=== PATIENT | female | born 1935 | race Asian ===

== ENCOUNTER 2018-07-18 12:57 | Inpatient (IN) | payer MEDICARE ==
[2018-07-18 13:36] LABS: Hematocrit 39.4 % (30.3-42.9); Hemoglobin 12.7 gm/dl (10.1-14.3); Mean Corpuscular HGB Conc 32 % (30-34); Mean Corpuscular Volume 95 fl (79-97); Platelet Count 252 K/mm3 (140-440); Red Blood Count 4.13 M/mm3 (3.65-5.03); Red Cell Distribution Width 15.4 % (13.2-15.2)
[2018-07-18 13:49] LABS: Calcium 8.4 mg/dL (8.4-10.2)
--- NOTE | 2018-07-18 14:30 | Emergency Department Report ---
ED General Adult HPI - General Chief complaint: Psych Stated complaint: HENRY ARTEAGA Time Seen by Provider: 07/18/18 13:22 Source: patient Mode of arrival: Wheelchair Limitations: No Limitations - History of Present Illness Initial comments: Mely 83-year-old female that arrives with her daughter and perhaps sister. The daughter is stating that the patient needs to be admitted to the geriatric psychiatry unit here. I explained to her that we need to medically screen the patient and determine indications for medical stabilization and admission. After a while she seemed to understand. However she is stating that "16 doctors told her the same thing". The sister tells me that the patient has been on Lasix intermittently "once a week or once a month". The patient has a variety of medical problems that have been chronic, long- standing and perhaps deteriorating. She lives alone. She has had chronic depression. They have been multiple family members that have this year as well as her pad of 17 years. She has had chronic diarrhea. She has had recent persistent cough and or by mouth intake. She complains of generalized weakness and believe she is dehydrated. The patient denies any substantial pain. She states that her abdomen is a bit bloated. -: week(s), month(s) Consistency: other (generalized weakness) Worsens with: none Associated Symptoms: cough, other (as per HPI) - Related Data Allergies Allergy/AdvReac Type Severity Reaction Status Date / Time cefaclor [From Ceclor] Allergy Unknown Verified 07/18/18 13:05 ciprofloxacin [From Cipro] Allergy Unknown Verified 07/18/18 13:05 diphenhydramine Allergy Unknown Verified 07/18/18 13:05 [From Benadryl] iodine Allergy Unknown Verified 07/18/18 13:05 levofloxacin [From Levaquin] Allergy Unknown Verified 07/18/18 13:05 moxifloxacin [From Avelox] Allergy Unknown Verified 07/18/18 13:05 nitrofurantoin Allergy Unknown Verified 07/18/18 13:05 [From Macrodantin] Penicillins Allergy Unknown Verified 07/18/18 13:05 sulfamethoxazole Allergy Unknown Verified 07/18/18 13:05 [From Septra] tetracycline Allergy Unknown Verified 07/18/18 13:05 trimethoprim [From Septra] Allergy Unknown Verified 07/18/18 13:05 mycins Allergy Unknown Uncoded 07/18/18 13:05 ED Review of Systems ROS: Stated complaint: PYSCH EVAL Other details as noted in HPI Constitutional: weakness. denies: chills, fever Eyes: denies: eye pain, eye discharge, vision change ENT: denies: ear pain, throat pain Respiratory: cough (nonproductive). denies: shortness of breath, wheezing Cardiovascular: denies: chest pain, palpitations Endocrine: no symptoms reported Gastrointestinal: other (bloating). denies: abdominal pain, nausea, vomiting Genitourinary: denies: urgency, dysuria, discharge Musculoskeletal: denies: back pain, joint swelling, arthralgia Skin: denies: rash, lesions Neurological: denies: headache, weakness, paresthesias Psychiatric: denies: anxiety, depression Hematological/Lymphatic: denies: easy bleeding, easy bruising ED Past Medical Hx - Past Medical History Previous Medical History?: Yes Hx Hypertension: Yes Hx Renal Disease: Yes Hx of Cancer: Yes Hx Psychiatric Treatment: Yes (anxiety, depression) Additional medical history: hypothyroid, high cholesterol, AFIB, IBS - Surgical History Hx Pacemaker: Yes Hx Appendectomy: Yes Additional Surgical History: cataracts removed, abd surgery, hysterectomy, bladder sling, back, foot - Social History Smoking Status: Never Smoker Substance Use Type: None ED Physical Exam - General Limitations: Altered Mental Status General appearance: alert, in no apparent distress, lethargic (mildly), other (appears dehydrated) - Head Head exam: Present: atraumatic, normocephalic - Eye Eye exam: Present: normal appearance. Absent: scleral icterus - ENT ENT exam: Present: mucous membranes moist - Neck Neck exam: Present: normal inspection. Absent: tenderness, meningismus - Respiratory Respiratory exam: Present: normal lung sounds bilaterally. Absent: respiratory distress - Cardiovascular Cardiovascular Exam: Present: regular rate, normal rhythm. Absent: systolic murmur, diastolic murmur, rubs, gallop - GI/Abdominal GI/Abdominal exam: Present: soft, normal bowel sounds. Absent: distended, tenderness, guarding, rebound, rigid - Extremities Exam Extremities exam: Present: normal inspection. Absent: calf tenderness - Back Exam Back exam: Present: normal inspection - Neurological Exam Neurological exam: Present: alert, oriented X3, CN II-XII intact. Absent: motor sensory deficit - Psychiatric Psychiatric exam: Present: normal mood, flat affect - Skin Skin exam: Present: warm, dry, intact, normal color. Absent: rash ED Course Vital Signs 07/18/18 13:05 Temperature 97.4 F L Pulse Rate 75 Respiratory 18 Rate Blood Pressure 115/73 O2 Sat by Pulse 97 Oximetry - Reevaluation(s) Reevaluation #1: Patient was found to be fairly severely hyponatremic. This is being addressed. I do not believe she needs hypertonic saline at this point. We will treat her with normal saline. She is volume depleted. She will be admitted by Dr. Le of the hospitalist service further care and evaluation. Chest x-ray still pending. 07/18/18 14:35 Reevaluation #2: Patient is being seen by Dr. Hanley now. She has multiple antibiotic allergies. I will leave it up to Dr. Le how or if he wants to treat the patient's pyuria. Urine culture is pending. 07/18/18 15:25 ED Medical Decision Making - Lab Data Result diagrams: 07/18/18 13:14 07/18/18 13:14 Laboratory Results - last 24 hr 07/18/18 07/18/18 07/18/18 13:14 13:14 13:14 WBC RBC Hgb Hct MCV MCH MCHC RDW Plt Count Sodium 120 L Potassium 4.4 Chloride 86.2 L Carbon Dioxide 19 L Anion Gap 19 BUN 22 H Creatinine 1.4 H Estimated GFR 36 BUN/Creatinine Ratio 16 Glucose 116 H Calcium 8.4 Salicylates < 0.3 L Acetaminophen 5.4 L Plasma/Serum Alcohol 07/18/18 07/18/18 13:14 13:14 WBC 5.9 RBC 4.13 Hgb 12.7 Hct 39.4 MCV 95 MCH 31 MCHC 32 RDW 15.4 H Plt Count 252 Sodium Potassium Chloride Carbon Dioxide Anion Gap BUN Creatinine Estimated GFR BUN/Creatinine Ratio Glucose Calcium Salicylates Acetaminophen Plasma/Serum Alcohol < 0.01 - Radiology Data Radiology results: report reviewed (pacemaker no acute process) Critical care attestation.: If time is entered above; I have spent that time in minutes in the direct care of this critically ill patient, excluding procedure time. ED Disposition Clinical Impression: Hyponatremia, Volume depletion, Generalized weakness UTI (urinary tract infection) Qualifiers: Urinary tract infection type: site unspecified Hematuria presence: without hematuria Qualified Code(s): N39.0 - Urinary tract infection, site not specified Major depression Qualifiers: Major depression recurrence: recurrent Active/Remission status: currently active Major depression episode severity: moderate Qualified Code(s): F33.1 - Major depressive disorder, recurrent, moderate Cardiomyopathy Qualifiers: Cardiomyopathy type: unspecified Qualified Code(s): I42.9 - Cardiomyopathy, unspecified Disposition: 09 OP ADMIT IP TO THIS HOSP Is pt being admited?: Yes Does the pt Need Aspirin: Yes Condition: Stable Time of Disposition: 15:29
[2018-07-18] MEDS ORDERED: NACL 0.9% 1000 ML 1,000 ML IV ONE ×2 (14:31→15:12)
[2018-07-18 14:47] LABS: Bacteria,Urine 1+ /HPF (Negative); Bilirubin,Urine NEG (Negative); Blood,Urine SM (Negative); Color,Urine Amber (Yellow); Hyaline Casts,Urine 1 /LPF; Mucus,Urine FEW /HPF
[2018-07-18 14:55] LABS: Basophils % (Manual) 0 % (0.0-1.8); Eosinophils % (Manual) 0 % (0.0-4.3); Total Cells Counted 100
[2018-07-18 14:56] LABS: Anisocytosis 1+; Hypochromasia Few; Ovalocytes Few; Platelet Estimate Consistent w Auto; Poikilocytosis 1+; Target Cells Few
[2018-07-18 14:57] LABS: Benzodiazepines Screen,Urine PRESUMPTIVE NEGATIVE; Cannabinoid Screen,Urine PRESUMPTIVE NEGATIVE; Cocaine Screen,Urine PRESUMPTIVE NEGATIVE; Methadone Screen,Urine PRESUMPTIVE NEGATIVE; Opiate Screen,Urine PRESUMPTIVE NEGATIVE
[2018-07-18 15:09] LABS: Amphetamine Screen,Urine PRESUMPTIVE NEGATIVE
--- NOTE | 2018-07-18 15:11 | Cat Scan Report ---
CT HEAD WITHOUT CONTRAST: HISTORY: Altered mental status, hyponatremia. TECHNIQUE: Sequential CT images without contrast. FINDINGS: Images obtained show bilateral prominence of the sulci and ventricles. There are no abnormal intra- or extra-axial blood or fluid collections. There are no focal masses or evidence of mass effect. The pritchard white matter differentiation appears within normal limits. Regions of periventricular decreased attenuation are consistent with microangiopathic ischemic disease. The posterior fossa structures including the fourth ventricle, cerebellum, and brainstem appear normal. A 1 cm polyp is noted in the medial left maxillary sinus. The remaining sinuses and mastoid air cells are adequately aerated. IMPRESSION: Evidence of atrophy and microangiopathic ischemic disease. Small left maxillary sinus polyp. No acute intracranial process noted.
--- NOTE | 2018-07-18 15:11 | XRay Report ---
Portable chest: Hypertension. No prior exam for comparison. The patient is markedly rotated to the right. There is a bipolar pacemaker. Evaluation of cardiac size is limited by rotation but may be slightly enlarged. There is no vascular congestion. The lungs appear generally clear. There are surgical carlos on the left possibly within the left breast. Impression: Limited study due to positioning. No acute findings suspected.
[2018-07-18] MEDS ORDERED: BABY ASPIRIN PO ONE (15:29)
[2018-07-18 15:42] LABS: Albumin 3.5 g/dL (3.9-5); Bilirubin,Direct 0.6 mg/dL (0-0.2)
[2018-07-19] MEDS ORDERED: DILAUDID IV PRN (00:20)
[2018-07-19] MEDS ORDERED: ZOFRAN IV PRN (00:20)
[2018-07-19] MEDS ORDERED: SODIUM CHLORIDE FLUSH SYRINGE 10 ML IV PRN (00:20)
[2018-07-19] MEDS ORDERED: TYLENOL PO PRN (00:20)
[2018-07-19] MEDS ORDERED: REGLAN IV PRN (00:20)
--- NOTE | 2018-07-19 00:20 | History and Physical Report ---
History of Present Illness Date of examination: 07/18/18 Date of admission: 07/18/18 15:41 Chief complaint: Severe weakness and debility for 1 month History of present illness: 83-year-old female who lives alone unable to take care of herself last 1 month. Patient has to be helped for her ADLs by her daughter who visits her every day. Patient wanted to be admitted to geriatric psychiatry unit here. Patient is not cleared medically and her sodium was low at 120-hence admission to medical floor for stabilization. No fever or chills. Generalized weakness and debility. Patient also has chronic depression. Patient recently lost her dog and nephew. Denies suicidal ideation. Not sleeping or eating. Past Medical History Previous Medical History?: Yes Hx Hypertension: Yes Hx Renal Disease: Yes Hx of Cancer: Yes Hx Psychiatric Treatment: Yes (anxiety, depression) Additional medical history: hypothyroid, high cholesterol, AFIB, IBS Surgical History Hx Pacemaker: Yes Hx Appendectomy: Yes Additional Surgical History: cataracts removed, abd surgery, hysterectomy, bladder sling, back, foot Social History Smoking Status: Never Smoker Substance Use Type: None Review of Systems ROS: Stated complaint: PYSCH EVAL Other details as noted in HPI Constitutional: weakness. denies: chills, fever Eyes: denies: eye pain, eye discharge, vision change ENT: denies: ear pain, throat pain Respiratory: cough (nonproductive). denies: shortness of breath, wheezing Cardiovascular: denies: chest pain, palpitations Endocrine: no symptoms reported Gastrointestinal: other (bloating). denies: abdominal pain, nausea, vomiting Genitourinary: denies: urgency, dysuria, discharge Musculoskeletal: denies: back pain, joint swelling, arthralgia Skin: denies: rash, lesions Neurological: denies: headache, weakness, paresthesias Psychiatric: denies: anxiety, depression Hematological/Lymphatic: denies: easy bleeding, easy bruising Medications and Allergies Allergies Allergy/AdvReac Type Severity Reaction Status Date / Time cefaclor [From Ceclor] Allergy Unknown Verified 07/18/18 13:05 ciprofloxacin [From Cipro] Allergy Unknown Verified 07/18/18 13:05 diphenhydramine Allergy Unknown Verified 07/18/18 13:05 [From Benadryl] iodine Allergy Unknown Verified 07/18/18 13:05 levofloxacin [From Levaquin] Allergy Unknown Verified 07/18/18 13:05 moxifloxacin [From Avelox] Allergy Unknown Verified 07/18/18 13:05 nitrofurantoin Allergy Unknown Verified 07/18/18 13:05 [From Macrodantin] Penicillins Allergy Unknown Verified 07/18/18 13:05 sulfamethoxazole Allergy Unknown Verified 07/18/18 13:05 [From Septra] tetracycline Allergy Unknown Verified 07/18/18 13:05 trimethoprim [From Septra] Allergy Unknown Verified 07/18/18 13:05 mycins Allergy Unknown Uncoded 07/18/18 13:05 Home Medications Medication Instructions Recorded Confirmed Last Taken Type Benzonatate [Tessalon Perle] 100 mg PO PRN 07/18/18 07/18/18 Unknown History Diltiazem HCl [Diltiazem 24Hr ER] 240 mg PO QAM 07/18/18 07/18/18 Unknown History Levothyroxine [Synthroid] 125 mcg PO QAM 07/18/18 07/18/18 Unknown History Loperamide 2 mg PO DAILY 07/18/18 07/18/18 Unknown History Metoprolol SUCCINATE ER TAB 25 mg PO QPCHS 07/18/18 07/18/18 Unknown History PARoxetine [Paxil] 20 mg PO DAILY 07/18/18 07/18/18 Unknown History Rivaroxaban [Xarelto] 15 mg PO DAILY 07/18/18 07/18/18 Unknown History Exam - Constitutional Vitals: Temp Pulse Resp BP Pulse Ox 97.4 F L 54 L 18 115/70 96 07/18/18 21:02 07/18/18 21:02 07/18/18 21:02 07/18/18 21:02 07/18/18 21:02 General appearance: Present: mild distress, well-nourished - EENT Eyes: Present: PERRL ENT: hearing intact, clear oral mucosa - Neck Neck: Present: supple, normal ROM - Respiratory Respiratory effort: normal Respiratory: bilateral: CTA - Cardiovascular Heart rate: 78 Rhythm: regular Heart Sounds: Present: S1 & S2. Absent: rub, click - Extremities Extremities: no ischemia, pulses intact, pulses symmetrical, No edema Peripheral Pulses: within normal limits - Abdominal General gastrointestinal: Present: soft, non-tender, non-distended, normal bowel sounds Female genitourinary: Present: normal - Rectal Rectal Exam: deferred - Integumentary Integumentary: Present: clear, warm, dry - Musculoskeletal Musculoskeletal: generalized weakness - Psychiatric Psychiatric: appropriate mood/affect, intact judgment & insight, depressed - Neurologic Neurologic: CNII-XII intact, moves all extremities - Allied Health Allied health notes reviewed: nursing, case management Results - Labs CBC & Chem 7: 07/18/18 13:14 07/18/18 13:14 Labs: Laboratory Last Values WBC 5.9 K/mm3 (4.5-11.0) 07/18/18 13:14 RBC 4.13 M/mm3 (3.65-5.03) 07/18/18 13:14 Hgb 12.7 gm/dl (10.1-14.3) 07/18/18 13:14 Hct 39.4 % (30.3-42.9) 07/18/18 13:14 MCV 95 fl (79-97) 07/18/18 13:14 MCH 31 pg (28-32) 07/18/18 13:14 MCHC 32 % (30-34) 07/18/18 13:14 RDW 15.4 % (13.2-15.2) H 07/18/18 13:14 Plt Count 252 K/mm3 (140-440) 07/18/18 13:14 Add Manual Diff Complete 07/18/18 13:14 Total Counted 100 07/18/18 13:14 Seg Neuts % (Manual) 83.0 % (40.0-70.0) H 07/18/18 13:14 Band Neutrophils % 0 % 07/18/18 13:14 Lymphocytes % (Manual) 9.0 % (13.4-35.0) L 07/18/18 13:14 Reactive Lymphs % (Man) 0 % 07/18/18 13:14 Monocytes % (Manual) 8.0 % (0.0-7.3) H 07/18/18 13:14 Eosinophils % (Manual) 0 % (0.0-4.3) 07/18/18 13:14 Basophils % (Manual) 0 % (0.0-1.8) 07/18/18 13:14 Metamyelocytes % 0 % 07/18/18 13:14 Myelocytes % 0 % 07/18/18 13:14 Promyelocytes % 0 % 07/18/18 13:14 Blast Cells % 0 % 07/18/18 13:14 Nucleated RBC % Not Reportable 07/18/18 13:14 Seg Neutrophils # Man 4.9 K/mm3 (1.8-7.7) 07/18/18 13:14 Band Neutrophils # 0.0 K/mm3 07/18/18 13:14 Lymphocytes # (Manual) 0.5 K/mm3 (1.2-5.4) L 07/18/18 13:14 Abs React Lymphs (Man) 0.0 K/mm3 07/18/18 13:14 Monocytes # (Manual) 0.5 K/mm3 (0.0-0.8) 07/18/18 13:14 Eosinophils # (Manual) 0.0 K/mm3 (0.0-0.4) 07/18/18 13:14 Basophils # (Manual) 0.0 K/mm3 (0.0-0.1) 07/18/18 13:14 Metamyelocytes # 0.0 K/mm3 07/18/18 13:14 Myelocytes # 0.0 K/mm3 07/18/18 13:14 Promyelocytes # 0.0 K/mm3 07/18/18 13:14 Blast Cells # 0.0 K/mm3 07/18/18 13:14 WBC Morphology Not Reportable 07/18/18 13:14 Hypersegmented Neuts Not Reportable 07/18/18 13:14 Hyposegmented Neuts Not Reportable 07/18/18 13:14 Hypogranular Neuts Not Reportable 07/18/18 13:14 Smudge Cells Not Reportable 07/18/18 13:14 Toxic Granulation Not Reportable 07/18/18 13:14 Toxic Vacuolation Not Reportable 07/18/18 13:14 Dohle Bodies Not Reportable 07/18/18 13:14 Pelger-Huet Anomaly Not Reportable 07/18/18 13:14 Barbi Rods Not Reportable 07/18/18 13:14 Platelet Estimate Consistent w auto 07/18/18 13:14 Clumped Platelets Not Reportable 07/18/18 13:14 Plt Clumps, EDTA Not Reportable 07/18/18 13:14 Large Platelets Not Reportable 07/18/18 13:14 Giant Platelets Not Reportable 07/18/18 13:14 Platelet Satelliting Not Reportable 07/18/18 13:14 Plt Morphology Comment Not Reportable 07/18/18 13:14 RBC Morphology Not Reportable 07/18/18 13:14 Dimorphic RBCs Not Reportable 07/18/18 13:14 Polychromasia Not Reportable 07/18/18 13:14 Hypochromasia Few 07/18/18 13:14 Poikilocytosis 1+ 07/18/18 13:14 Anisocytosis 1+ 07/18/18 13:14 Microcytosis Few 07/18/18 13:14 Macrocytosis Not Reportable 07/18/18 13:14 Spherocytes Not Reportable 07/18/18 13:14 Pappenheimer Bodies Not Reportable 07/18/18 13:14 Sickle Cells Not Reportable 07/18/18 13:14 Target Cells Few 07/18/18 13:14 Tear Drop Cells Not Reportable 07/18/18 13:14 Ovalocytes Few 07/18/18 13:14 Helmet Cells Not Reportable 07/18/18 13:14 [place] Bodies Not Reportable 07/18/18 13:14 [place] Rings Not Reportable 07/18/18 13:14 [place]ora Cells Not Reportable 07/18/18 13:14 Bite Cells Not Reportable 07/18/18 13:14 Crenated Cell Not Reportable 07/18/18 13:14 Elliptocytes Not Reportable 07/18/18 13:14 Acanthocytes (Spur) Not Reportable 07/18/18 13:14 Rouleaux Not Reportable 07/18/18 13:14 Hemoglobin C Crystals Not Reportable 07/18/18 13:14 Schistocytes Not Reportable 07/18/18 13:14 Malaria parasites Not Reportable 07/18/18 13:14 Chao Bodies Not Reportable 07/18/18 13:14 Hem Pathologist Commnt No 07/18/18 13:14 Sodium 120 mmol/L (137-145) L 07/18/18 13:14 Potassium 4.4 mmol/L (3.6-5.0) 07/18/18 13:14 Chloride 86.2 mmol/L (98-107) L 07/18/18 13:14 Carbon Dioxide 19 mmol/L (22-30) L 07/18/18 13:14 Anion Gap 19 mmol/L 07/18/18 13:14 BUN 22 mg/dL (7-17) H 07/18/18 13:14 Creatinine 1.4 mg/dL (0.7-1.2) H 07/18/18 13:14 Estimated GFR 36 ml/min 07/18/18 13:14 BUN/Creatinine Ratio 16 % 07/18/18 13:14 Glucose 116 mg/dL (65-100) H 07/18/18 13:14 Calcium 8.4 mg/dL (8.4-10.2) 07/18/18 13:14 Total Bilirubin 1.10 mg/dL (0.1-1.2) 07/18/18 13:14 Direct Bilirubin 0.6 mg/dL (0-0.2) H 07/18/18 13:14 Indirect Bilirubin 0.5 mg/dL 07/18/18 13:14 AST 69 units/L (5-40) H 07/18/18 13:14 ALT 65 units/L (7-56) H 07/18/18 13:14 Alkaline Phosphatase 89 units/L (35-129) 07/18/18 13:14 NT-Pro-B Natriuret Pep 18397 pg/mL (0-900) H 07/18/18 13:14 Total Protein 5.5 g/dL (6.3-8.2) L 07/18/18 13:14 Albumin 3.5 g/dL (3.9-5) L 07/18/18 13:14 Albumin/Globulin Ratio 1.8 % 07/18/18 13:14 Urine Color [place] (Yellow) 07/18/18 14:30 Urine Turbidity Clear (Clear) 07/18/18 14:30 Urine pH 5.0 (5.0-7.0) 07/18/18 14:30 Ur Specific [place] 1.017 (1.003-1.030) 07/18/18 14:30 Urine Protein 30 mg/dl mg/dL (Negative) 07/18/18 14:30 Urine Glucose (UA) Neg mg/dL (Negative) 07/18/18 14:30 Urine Ketones Tr mg/dL (Negative) 07/18/18 14:30 Urine Blood Sm (Negative) 07/18/18 14:30 Urine Nitrite Neg (Negative) 07/18/18 14:30 Urine Bilirubin Neg (Negative) 07/18/18 14:30 Urine Urobilinogen 4.0 mg/dL (<2.0) 07/18/18 14:30 Ur Leukocyte Esterase Tr (Negative) 07/18/18 14:30 Urine WBC (Auto) 30.0 /HPF (0.0-6.0) H 07/18/18 14:30 Urine RBC (Auto) 3.0 /HPF (0.0-6.0) 07/18/18 14:30 U Epithel Cells (Auto) < 1.0 /HPF (0-13.0) 07/18/18 14:30 Urine Bacteria (Auto) 1+ /HPF (Negative) 07/18/18 14:30 Hyaline Casts 1 /LPF 07/18/18 14:30 Urine Mucus Few /HPF 07/18/18 14:30 Salicylates < 0.3 mg/dL (2.8-20.0) L 07/18/18 13:14 Urine Opiates Screen Presumptive negative 07/18/18 14:30 Urine Methadone Screen Presumptive negative 07/18/18 14:30 Acetaminophen 5.4 ug/mL (10.0-30.0) L 07/18/18 13:14 Ur Barbiturates Screen Presumptive negative 07/18/18 14:30 Ur Phencyclidine Scrn Presumptive negative 07/18/18 14:30 Ur Amphetamines Screen Presumptive negative 07/18/18 14:30 U Benzodiazepines Scrn Presumptive negative 07/18/18 14:30 Urine Cocaine Screen Presumptive negative 07/18/18 14:30 U Marijuana (THC) Screen Presumptive negative 07/18/18 14:30 Drugs of Abuse Note Disclamer 07/18/18 14:30 Plasma/Serum Alcohol < 0.01 % (0-0.07) 07/18/18 13:14 - Imaging and Cardiology Imaging and Cardiology: Chest x-ray No prior exam for comparison. The patient is markedly rotated to the right. There is a bipolar pacemaker. Evaluation of cardiac size is limited by rotation but may be slightly enlarged. There is no vascular congestion. The lungs appear generally clear. There are surgical carlos on the left possibly within the left breast. Impression: Limited study due to positioning. No acute findings suspected. CT head IMPRESSION: Evidence of atrophy and microangiopathic ischemic disease. Small left maxillary sinus polyp. No acute intracranial process noted. Assessment and Plan Advance Directives: Yes (full code) VTE prophylaxis?: Chemical Plan of care discussed with patient/family: Yes - Patient Problems (1) Hyponatremia Current Visit: Yes Status: Acute Plan to address problem: Normal saline at 100 mL per hour for now Check urine osmolarity and on serum osmolality. Patient not on any SSRIs which can cause hyponatremia Not on any diuretics (2) Coronary artery disease Current Visit: Yes Status: Chronic Qualifiers: Coronary Disease-Associated Artery/Lesion type: [place] artery [place] vs. transplanted heart: [place] heart Associated angina: without angina Qualified Code(s): I25.10 - Atherosclerotic heart disease of [place] coronary artery without angina pectoris Plan to address problem: Continue Plavix (3) Hypertension Current Visit: Yes Status: Chronic Qualifiers: Hypertension type: essential hypertension Qualified Code(s): I10 - Essential (primary) hypertension Plan to address problem: Continue antihypertensives (4) Hyperlipidemia Current Visit: Yes Status: Chronic Qualifiers: Hyperlipidemia type: mixed hyperlipidemia Qualified Code(s): E78.2 - Mixed hyperlipidemia Plan to address problem: Continue statins (5) Physical debility Current Visit: Yes Status: Acute Plan to address problem: Physical therapy ordered for evaluation and treatment (6) Depression Current Visit: Yes Status: Chronic Qualifiers: Depression Type: unspecified Qualified Code(s): F32.9 - Major depressive disorder, single episode, unspecified Plan to address problem: Patient once medically cleared to be transferred to geriatric psych unit (7) DL (acute kidney injury) Current Visit: Yes Status: Acute Plan to address problem: IV fluids (8) UTI (urinary tract infection) Current Visit: Yes Status: Acute Qualifiers: Urinary tract infection type: acute cystitis Hematuria presence: without hematuria Qualified Code(s): N30.00 - Acute cystitis without hematuria Plan to address problem: On IV Rocephin (9) Elevated brain natriuretic peptide (BNP) level Current Visit: Yes Status: Chronic Plan to address problem: Possible CHF Echocardiogram ordered IV fluids to be discontinued tomorrow morning (10) DVT prophylaxis Current Visit: Yes Status: Acute Plan to address problem: Lovenox 30 mg subcutaneous daily
[2018-07-19] MEDS ORDERED: NACL 0.9% 1000 ML 1,000 ML IV SCH (01:00)
[2018-07-19 05:27] LABS: Calcium 8.3 mg/dL (8.4-10.2)
[2018-07-19] MEDS: SODIUM CHLORIDE FLUSH SYRINGE 10 ML IV SCH ×2 (09:35→21:13)
[2018-07-19] MEDS: PEPCID PO SCH (09:35)
[2018-07-19] MEDS ORDERED: LEVAQUIN 500MG/100ML 500 MG/100 ML BAG IV SCH (10:00)
[2018-07-19] MEDS ORDERED: ROCEPHIN/NS 2 GM/100 ML 2 GM/100 ML BAG IV SCH (10:00)
--- NOTE | 2018-07-19 14:11 | Consultation ---
History of Present Illness - Reason for Consult Consult date: 07/19/18 acute renal failure, hyponatremia - History of Present Illness Very pleasant 83-year-old female with past medical history of hypertension, hypothyroidism, atrial fibrillation, IBS, and significant depression who presented to the emergency room department secondary to worsening weakness, fatigue, and lack of ability to take care of herself. She states that her depression has been getting worse and she wanted to seek medical attention. Per primary team's note it seems that patient was pending admission into the geriatric psychiatry unit. However she needs to be medically optimized prior to transfer. Her serum sodium levels are significantly low and for this hyponatremia and for the acute kidney injury nephrology is being consulted at this time. To note her BNP is significantly elevated and she did have a 2-D echocardiogram. Results of the echocardiogram are notable for decreased ejection fraction and moderate to severe dilatation of the left atrium and left ventricle. No evidence of LVH noted. Ejection fraction 15-20%. Chest x-ray was limited based on patient body habitus and rotation but at least it did not show any acute evidence of pulmonary edema. Patient however has stated that sin ce the last 2-3 months she has noticed worsening dyspnea on exertion and intermittent lower extremity edema. She states that she has been on the low dose of Lasix intermittently as needed for the aforementioned lower extremity edema. Overall appetite seems to be suboptimal at this time and patient states that she just does not have an appetite. She has been on normal saline at 100 mL an hour. However upon my examination this afternoon it seems that the normal saline has been stopped. Past History Past Medical History: hypertension, hyperlipidemia, hypothyroidism, other (depression) Past Surgical History: appendectomy, cataract removal, Other (pacemaker placement ) Social history: no significant social history Family history: no significant family history Medications and Allergies Allergies Allergy/AdvReac Type Severity Reaction Status Date / Time cefaclor [From Ceclor] Allergy Unknown Verified 07/18/18 13:05 ciprofloxacin [From Cipro] Allergy Unknown Verified 07/18/18 13:05 diphenhydramine Allergy Unknown Verified 07/18/18 13:05 [From Benadryl] iodine Allergy Unknown Verified 07/18/18 13:05 levofloxacin [From Levaquin] Allergy Unknown Verified 07/18/18 13:05 moxifloxacin [From Avelox] Allergy Unknown Verified 07/18/18 13:05 nitrofurantoin Allergy Unknown Verified 07/18/18 13:05 [From Macrodantin] Penicillins Allergy Unknown Verified 07/18/18 13:05 sulfamethoxazole Allergy Unknown Verified 07/18/18 13:05 [From Septra] tetracycline Allergy Unknown Verified 07/18/18 13:05 trimethoprim [From Septra] Allergy Unknown Verified 07/18/18 13:05 mycins Allergy Unknown Uncoded 07/18/18 13:05 Home Medications Medication Instructions Recorded Confirmed Last Taken Type Benzonatate [Tessalon Perle] 100 mg PO PRN 07/18/18 07/18/18 Unknown History Diltiazem HCl [Diltiazem 24Hr ER] 240 mg PO QAM 07/18/18 07/18/18 Unknown Histor y Levothyroxine [Synthroid] 125 mcg PO QAM 07/18/18 07/18/18 Unknown History Loperamide 2 mg PO DAILY 07/18/18 07/18/18 Unknown History Metoprolol SUCCINATE ER TAB 25 mg PO QPCHS 07/18/18 07/18/18 Unknown History PARoxetine [Paxil] 20 mg PO DAILY 07/18/18 07/18/18 Unknown History Rivaroxaban [Xarelto] 15 mg PO DAILY 07/18/18 07/18/18 Unknown History Active Meds: Active Medications Acetaminophen (Tylenol) 650 mg PO Q4H PRN PRN Reason: Pain MILD(1-3)/Fever >100.5/BEASLEY Famotidine (Pepcid) 20 mg [facility] [place] Last Admin: 07/19/18 09:35 Dose: 20 mg Documented by: Hydromorphone HCl (Dilaudid) 0.25 mg IV Q3H PRN PRN Reason: Pain, Moderate (4-6) Sodium Chloride (Nacl 0.9% 1000 Ml) 1,000 mls @ 100 mls/hr IV DIRECT [facility] Stop: 07/20/18 11:00 Last Admin: 07/19/18 06:44 Dose: 100 mls/hr Documented by: Levothyroxine Sodium (Synthroid) 125 mcg PO DAILY@0600 [facility] Metoclopramide HCl (Reglan) 5 mg IV Q6H PRN PRN Reason: Nausea And Vomiting Ondansetron HCl (Zofran) 4 mg IV Q8H PRN PRN Reason: Nausea And Vomiting Rivaroxaban (Xarelto) 15 mg PO DAILY KIAN; Protocol Sodium Chloride (Sodium Chloride Flush Syringe 10 Ml) 10 ml IV BID [facility] Last Admin: 07/19/18 09:35 Dose: 10 ml Documented by: Sodium Chloride (Sodium Chloride Flush Syringe 10 Ml) 10 ml IV PRN PRN PRN Reason: LINE FLUSH Review of Systems All systems: negative Constitutional: fatigue, weakness, poor appetite Respiratory: shortness of breath, dyspnea on exertion Exam - Vital Signs Vital signs: Vital Signs Temp Pulse Resp BP Pulse Ox 97.4 F L 75 18 115/73 97 07/18/18 13:05 07/18/18 13:05 07/18/18 13:05 07/18/18 13:05 07/18/18 13:05 - General Appearance General appearance: well-developed, well-nourished, appears stated age, chronically ill, frail EENT: ATNC, PERRL Neck: Present: neck supple, trachea midline Respiratory: Clear to Ascultation, Normal Exam Heart: regular, S1S2 Gastrointestinal: Present: normal, normoactive bowel sounds Integumentary: no rash, warm and dry Neurologic: no focal deficit, no asterixis, alert and oriented x3 Musculoskeletal: Present: other (no significant edema) Psychiatric: mood/affect appropriate, cooperative Results - Lab Results 07/18/18 13:14 07/19/18 04:50 Most recent lab results Calcium 8.3 mg/dL (8.4-10.2) L 07/19/18 04:50 - Image Kidney/bladder ultrasound: pending Assessment and Plan - Patient Problems (1) Hyponatremia Current Visit: Yes Status: Acute Plan to address problem: Based on echocardiogram, symptomatology, and significantly elevated BNP levels I'm concerned that she may be slightly hypervolemic in regards to overall volume status. This may be the reason for her hyponatremia. To this end I will recommend discontinuing IV fluids and to give a dose of Lasix this evening to see response. We'll also obtain urine electrolytes to include urine sodium, urine chloride, urine potassium. She should also obtain urine and serum osmolality for further evaluation of her hyponatremic state. (2) Acute systolic (congestive) heart failure Current Visit: Yes Status: Acute Plan to address problem: In the setting of elevated BNP and markedly abnormal echocardiogram, I do agree with discontinuing continuous IV fluids at this time to prevent pulmonary edema and fluid overload state. I would favor to give 1 dose of Lasix 40 mg IV 1 tonight and follow-up her serum sodium and basic metabolic panel tomorrow. Further recommendations per cardiology. (3) Acute and chronic respiratory failure with hypoxia Current Visit: Yes Status: Acute Plan to address problem: Overall respiratory status is stable on 2 L of O2 via nasal cannula. Chest x- ray noted without any acute abnormalities though chest x-ray itself was fairly limited in its imaging secondary to patient rotation and habitus. We'll continue to monitor closely. Based on her echocardiogram findings and is likely best not to have this patient on continuous IV fluids so as to prevent any fluid overload state or pulmonary edema. (4) DL (acute kidney injury) Current Visit: Yes Status: Acute Plan to address problem: Likely multifactorial secondary to prerenal injury in the setting of decreased oral intake as well as possible acute CHF exacerbation given the significant gustavo vation of BNP, symptomatology, and acutely abnormal echocardiogram. Agree with discontinuing standing IV fluids at this time. We need to encourage adequate by mouth intake and especially adequate protein intake to help increase serum sodium levels. We'll give 1 dose of Lasix to see a response as well as response of her serum sodium with morning BMP tomorrow. (5) Generalized weakness Current Visit: Yes Status: Acute Plan to address problem: Further management per primary team. She may benefit from physical therapy evaluation. (6) Major depression Current Visit: Yes Status: Acute Qualifiers: Major depression recurrence: recurrent Active/Remission status: currently active Major depression episode severity: moderate Qualified Code(s): F33.1 - Major depressive disorder, recurrent, moderate Plan to address problem: Further recommendations per psychiatry.
[2018-07-19] MEDS ORDERED: LASIX IV ONE (14:23)
--- NOTE | 2018-07-19 16:08 | Progress Note ---
Assessment and Plan Assessment and plan: 83-year-old woman with past medical history of hypothyroidism. The patient has been dealing with grief after the of a family member. The patient presents with worsening depression. She initially came to the ER hoping to be placed in geriatric psychiatric unit. However she was found to be severely hypoglycemic. Hospital course/plan Sodium is extremely low, nephrology consult. -TSH is extremely elevated and T4 is low. Has been restarted on Synthroid. Highly doubt that she is compliant with that at home -The patient takes xarelto, the indication is unclear. We'll talk to family to find out the indication -Continue antibiotics for UTI, follow-up urine culture -Creatinine improving on IV fluids - consult Diagnosis Severe hyponatremia Hypothyroidism symptomatic UTI Acute kidney injury due to vasomotor nephropathy Depression Hypercoagulable state? History Interval history: Review of systems Constitutional: No fevers, no malaise, no joint pains CVS: No chest pain, no orthopnea, no dyspnea on exertion, no pedal edema GI: No abdominal pain, no diarrhea, no vomiting, no constipation Respiratory: No shortness of breath, no wheezing, no coughing Hospitalist Physical - Physical exam Narrative exam: General.: appears sad HEENT: Moist mucous membranes, extraocular muscles intact, no lymphadenopathy Neck: supple Cardiac: S1-S2 heard Lungs: clear to auscultation bilaterally Abdomen: soft , nontender, nondistended, bowel sounds positive Extremities: no edema clubbing or cyanosis Skin: no rash or lesions Neurologic: no gross focal deficits Psych: very depressed moved - Constitutional Vitals: Temp Pulse Resp BP Pulse Ox 97.8 F 76 20 109/65 90 07/19/18 13:10 07/19/18 13:10 07/19/18 13:10 07/19/18 13:10 07/19/18 13:10 General appearance: Present: mild distress, well-nourished Results - Labs CBC & Chem 7: 07/18/18 13:14 07/19/18 04:50 Labs: Laboratory Last Values WBC 5.9 K/mm3 (4.5-11.0) 07/18/18 13:14 RBC 4.13 M/mm3 (3.65-5.03) 07/18/18 13:14 Hgb 12.7 gm/dl (10.1-14.3) 07/18/18 13:14 Hct 39.4 % (30.3-42.9) 07/18/18 13:14 MCV 95 fl (79-97) 07/18/18 13:14 MCH 31 pg (28-32) 07/18/18 13:14 MCHC 32 % (30-34) 07/18/18 13:14 RDW 15.4 % (13.2-15.2) H 07/18/18 13:14 Plt Count 252 K/mm3 (140-440) 07/18/18 13:14 Add Manual Diff Complete 07/18/18 13:14 Total Counted 100 07/18/18 13:14 Seg Neuts % (Manual) 83.0 % (40.0-70.0) H 07/18/18 13:14 Band Neutrophils % 0 % 07/18/18 13:14 Lymphocytes % (Manual) 9.0 % (13.4-35.0) L 07/18/18 13:14 Reactive Lymphs % (Man) 0 % 07/18/18 13:14 Monocytes % (Manual) 8.0 % (0.0-7.3) H 07/18/18 13:14 Eosinophils % (Manual) 0 % (0.0-4.3) 07/18/18 13:14 Basophils % (Manual) 0 % (0.0-1.8) 07/18/18 13:14 Metamyelocytes % 0 % 07/18/18 13:14 Myelocytes % 0 % 07/18/18 13:14 Promyelocytes % 0 % 07/18/18 13:14 Blast Cells % 0 % 07/18/18 13:14 Nucleated RBC % Not Reportable 07/18/18 13:14 Seg Neutrophils # Man 4.9 K/mm3 (1.8-7.7) 07/18/18 13:14 Band Neutrophils # 0.0 K/mm3 07/18/18 13:14 Lymphocytes # (Manual) 0.5 K/mm3 (1.2-5.4) L 07/18/18 13:14 Abs React Lymphs (Man) 0.0 K/mm3 07/18/18 13:14 Monocytes # (Manual) 0.5 K/mm3 (0.0-0.8) 07/18/18 13:14 Eosinophils # (Manual) 0.0 K/mm3 (0.0-0.4) 07/18/18 13:14 Basophils # (Manual) 0.0 K/mm3 (0.0-0.1) 07/18/18 13:14 Metamyelocytes # 0.0 K/mm3 07/18/18 13:14 Myelocytes # 0.0 K/mm3 07/18/18 13:14 Promyelocytes # 0.0 K/mm3 07/18/18 13:14 Blast Cells # 0.0 K/mm3 07/18/18 13:14 WBC Morphology Not Reportable 07/18/18 13:14 Hypersegmented Neuts Not Reportable 07/18/18 13:14 Hyposegmented Neuts Not Reportable 07/18/18 13:14 Hypogranular Neuts Not Reportable 07/18/18 13:14 Smudge Cells Not Reportable 07/18/18 13:14 Toxic Granulation Not Reportable 07/18/18 13:14 Toxic Vacuolation Not Reportable 07/18/18 13:14 Dohle Bodies Not Reportable 07/18/18 13:14 Pelger-Huet Anomaly Not Reportable 07/18/18 13:14 Barbi Rods Not Reportable 07/18/18 13:14 Platelet Estimate Consistent w auto 07/18/18 13:14 Clumped Platelets Not Reportable 07/18/18 13:14 Plt Clumps, EDTA Not Reportable 07/18/18 13:14 Large Platelets Not Reportable 07/18/18 13:14 Giant Platelets Not Reportable 07/18/18 13:14 Platelet Satelliting Not Reportable 07/18/18 13:14 Plt Morphology Comment Not Reportable 07/18/18 13:14 RBC Morphology Not Reportable 07/18/18 13:14 Dimorphic RBCs Not Reportable 07/18/18 13:14 Polychromasia Not Reportable 07/18/18 13:14 Hypochromasia Few 07/18/18 13:14 Poikilocytosis 1+ 07/18/18 13:14 Anisocytosis 1+ 07/18/18 13:14 Microcytosis Few 07/18/18 13:14 Macrocytosis Not Reportable 07/18/18 13:14 Spherocytes Not Reportable 07/18/18 13:14 Pappenheimer Bodies Not Reportable 07/18/18 13:14 Sickle Cells Not Reportable 07/18/18 13:14 Target Cells Few 07/18/18 13:14 Tear Drop Cells Not Reportable 07/18/18 13:14 Ovalocytes Few 07/18/18 13:14 Helmet Cells Not Reportable 07/18/18 13:14 [place] Bodies Not Reportable 07/18/18 13:14 [place] Rings Not Reportable 07/18/18 13:14 Nora Cells Not Reportable 07/18/18 13:14 Bite Cells Not Reportable 07/18/18 13:14 Crenated Cell Not Reportable 07/18/18 13:14 Elliptocytes Not Reportable 07/18/18 13:14 Acanthocytes (Spur) Not Reportable 07/18/18 13:14 Rouleaux Not Reportable 07/18/18 13:14 Hemoglobin C Crystals Not Reportable 07/18/18 13:14 Schistocytes Not Reportable 07/18/18 13:14 Malaria parasites Not Reportable 07/18/18 13:14 Chao Bodies Not Reportable 07/18/18 13:14 Hem Pathologist Commnt No 07/18/18 13:14 Sodium 122 mmol/L (137-145) L 07/19/18 04:50 Potassium 4.2 mmol/L (3.6-5.0) 07/19/18 04:50 Chloride 90.0 mmol/L (98-107) L 07/19/18 04:50 Carbon Dioxide 18 mmol/L (22-30) L 07/19/18 04:50 Anion Gap 18 mmol/L 07/19/18 04:50 BUN 20 mg/dL (7-17) H 07/19/18 04:50 Creatinine 1.2 mg/dL (0.7-1.2) 07/19/18 04:50 Estimated GFR 43 ml/min 07/19/18 04:50 BUN/Creatinine Ratio 17 % 07/19/18 04:50 Glucose 96 mg/dL (65-100) 07/19/18 04:50 Hemoglobin A1c 6.2 % (4-6) H 07/18/18 13:14 Osmolality 253 Mosm/kg 07/18/18 13:40 Calcium 8.3 mg/dL (8.4-10.2) L 07/19/18 04:50 Total Bilirubin 1.10 mg/dL (0.1-1.2) 07/18/18 13:14 Direct Bilirubin 0.6 mg/dL (0-0.2) H 07/18/18 13:14 Indirect Bilirubin 0.5 mg/dL 07/18/18 13:14 AST 69 units/L (5-40) H 07/18/18 13:14 ALT 65 units/L (7-56) H 07/18/18 13:14 Alkaline Phosphatase 89 units/L (35-129) 07/18/18 13:14 NT-Pro-B Natriuret Pep 62908 pg/mL (0-900) H 07/18/18 13:14 Total Protein 5.5 g/dL (6.3-8.2) L 07/18/18 13:14 Albumin 3.5 g/dL (3.9-5) L 07/18/18 13:14 Albumin/Globulin Ratio 1.8 % 07/18/18 13:14 TSH 26.270 mlU/mL (0.270-4.200) H 07/19/18 14:38 Free T4 0.67 ng/dL (0.76-1.46) L 07/19/18 14:38 Thyroxine (T4) 3.4 ug/dL (4.0-12.0) L 07/19/18 14:38 Urine Color [place] (Yellow) 07/18/18 14:30 Urine Turbidity Clear (Clear) 07/18/18 14:30 Urine pH 5.0 (5.0-7.0) 07/18/18 14:30 Ur Specific [place] 1.017 (1.003-1.030) 07/18/18 14:30 Urine Protein 30 mg/dl mg/dL (Negative) 07/18/18 14:30 Urine Glucose (UA) Neg mg/dL (Negative) 07/18/18 14:30 Urine Ketones Tr mg/dL (Negative) 07/18/18 14:30 Urine Blood Sm (Negative) 07/18/18 14:30 Urine Nitrite Neg (Negative) 07/18/18 14:30 Urine Bilirubin Neg (Negative) 07/18/18 14:30 Urine Urobilinogen 4.0 mg/dL (<2.0) 07/18/18 14:30 Ur Leukocyte Esterase Tr (Negative) 07/18/18 14:30 Urine WBC (Auto) 30.0 /HPF (0.0-6.0) H 07/18/18 14:30 Urine RBC (Auto) 3.0 /HPF (0.0-6.0) 07/18/18 14:30 U Epithel Cells (Auto) < 1.0 /HPF (0-13.0) 07/18/18 14:30 Urine Bacteria (Auto) 1+ /HPF (Negative) 07/18/18 14:30 Hyaline Casts 1 /LPF 07/18/18 14:30 Urine Mucus Few /HPF 07/18/18 14:30 Salicylates < 0.3 mg/dL (2.8-20.0) L 07/18/18 13:14 Urine Opiates Screen Presumptive negative 07/18/18 14:30 Urine Methadone Screen Presumptive negative 07/18/18 14:30 Acetaminophen 5.4 ug/mL (10.0-30.0) L 07/18/18 13:14 Ur Barbiturates Screen Presumptive negative 07/18/18 14:30 Ur Phencyclidine Scrn Presumptive negative 07/18/18 14:30 Ur Amphetamines Screen Presumptive negative 07/18/18 14:30 U Benzodiazepines Scrn Presumptive negative 07/18/18 14:30 Urine Cocaine Screen Presumptive negative 07/18/18 14:30 U Marijuana (THC) Screen Presumptive negative 07/18/18 14:30 Drugs of Abuse Note Disclamer 07/18/18 14:30 Plasma/Serum Alcohol < 0.01 % (0-0.07) 07/18/18 13:14
[2018-07-20] MEDS: SYNTHROID PO SCH (05:15)
[2018-07-20 06:02] LABS: Chloride, Urine 17.3 mmolL (110-250)
[2018-07-20 06:54] LABS: Hematocrit 39.5 % (30.3-42.9); Hemoglobin 12.2 gm/dl (10.1-14.3); Mean Corpuscular HGB Conc 31 % (30-34); Mean Corpuscular Volume 100 fl (79-97); Platelet Count 245 K/mm3 (140-440); Red Blood Count 3.95 M/mm3 (3.65-5.03); Red Cell Distribution Width 16.4 % (13.2-15.2)
[2018-07-20 07:49] LABS: Albumin 2.8 g/dL (3.9-5); Calcium 8.2 mg/dL (8.4-10.2)
[2018-07-20 08:42] LABS: Total Cells Counted 100
[2018-07-20 08:43] LABS: Anisocytosis 1+; Hypochromasia Few; Ovalocytes Rare; Platelet Estimate Consistent w Auto; Poikilocytosis 1+; Target Cells Rare
[2018-07-20] MEDS: XARELTO PO SCH (09:02)
[2018-07-20] MEDS: PEPCID PO SCH (09:02)
[2018-07-20] MEDS: SODIUM CHLORIDE FLUSH SYRINGE 10 ML IV SCH (09:02)
--- NOTE | 2018-07-20 09:16 | Progress Note ---
Assessment and Plan - Patient Problems (1) Hyponatremia Current Visit: Yes Status: Acute Plan to address problem: Based on echocardiogram, symptomatology, and significantly elevated BNP levels concern concerned that she may be slightly hypervolemic in regards to overall volume status. This may be the reason for her hyponatremia. She did receive one dose of lasix 40 mg IV. Urine studies indicate state of inappropriately elevated ADH and impaired free water excretion in the setting of hypothyroidism. Will plan to start patient on dose of tolvaptan 15 mg PO today and monitor BMP/serum osm/Urine OSm/Urine electrolytes daily to test for response. As she is on tolvaptan, she should not be on any fluid restrictions. Anticipate that tolvaptan should begin to correct her hyponatremia. (2) Hypothyroidism Current Visit: Yes Status: Chronic Plan to address problem: Patient started on synthroid. This may be leading to impaired free water excretion and increased ADH, ultimately contributing to her hyponatremia. (3) Acute systolic (congestive) heart failure Current Visit: Yes Status: Acute Plan to address problem: In the setting of elevated BNP and markedly abnormal echocardiogram, agreed with discontinuing continuous IV fluids to prevent pulmonary edema and fluid overload state. s/P Lasix 40 mg IV 1 last night serum sodium/BMP noted this am. Tolvaptan to be given today to increase free water excretion. (4) Acute and chronic respiratory failure with hypoxia Current Visit: Yes Status: Acute Plan to address problem: Overall respiratory status is stable on 2 L of O2 via nasal cannula. Chest x- ray noted without any acute abnormalities though chest x-ray itself was fairly limited in its imaging secondary to patient rotation and habitus. We'll co yvette to monitor closely. Based on her echocardiogram findings and is likely best not to have this patient on continuous IV fluids so as to prevent any fluid overload state or pulmonary edema. (5) DL (acute kidney injury) Current Visit: Yes Status: Acute Plan to address problem: Renal function has improved back to baseline. (6) Generalized weakness Current Visit: Yes Status: Acute Plan to address problem: Further management per primary team. She may benefit from physical therapy evaluation. (7) Major depression Current Visit: Yes Status: Acute Qualifiers: Major depression recurrence: recurrent Active/Remission status: currently active Major depression episode severity: moderate Qualified Code(s): F33.1 - Major depressive disorder, recurrent, moderate Plan to address problem: Further recommendations per psychiatry. Subjective Date of service: 07/20/18 Interval history: Labs and urine studies noted this am. She is markedly hypothyroid and in that setting she likely has impaired free water excretion evidenced by her serum/urine osmolality results. Discussed with patient and will plan to start on tolvaptan today. She has also been restarted on levothyroxine. Objective - Vital Signs Vital signs: Vital Signs - 12hr 07/20/18 07/20/18 07/20/18 02:37 02:38 07:38 Temperature 98.4 F 97.8 F Pulse Rate 99 H 111 H Pulse Rate [ From Monitor] Respiratory 18 20 Rate Blood Pressure 119/92 129/55 O2 Sat by Pulse 87 94 Oximetry 07/20/18 08:22 Temperature Pulse Rate Pulse Rate [ 111 H From Monitor] Respiratory Rate Blood Pressure O2 Sat by Pulse 94 Oximetry - General Appearance General appearance: well-developed, well-nourished, appears stated age EENT: ATNC, PERRL Neck: no JVD, no thyromegaly Respiratory: Present: Decreased Breath Sounds Cardiology: regular, S1S2 Gastrointestinal: normal, normoactive bowel sounds Integumentary: warm and dry Neurologic: no focal deficit, no asterixis, alert and oriented x3 Musculoskeletal: other (+mild pitting edema in LE ) Psychiatric: mood/affect appropriate, cooperative - Lab 07/20/18 05:53 07/20/18 06:42 Most recent lab results Calcium 8.2 mg/dL (8.4-10.2) L 07/20/18 06:42 Urine Sodium 10 mmol/L 07/20/18 05:40 - Imaging Chest x-ray: report reviewed - Allied health notes Allied health notes reviewed: nursing Medications & Allergies - Medications Allergies/Adverse Reactions: Allergies cefaclor [From Ceclor] Allergy (Verified 07/18/18 13:05) Unknown ciprofloxacin [From Cipro] Allergy (Verified 07/18/18 13:05) Unknown diphenhydramine [From Benadryl] Allergy (Verified 07/18/18 13:05) Unknown iodine Allergy (Verified 07/18/18 13:05) Unknown levofloxacin [From Levaquin] Allergy (Verified 07/18/18 13:05) Unknown moxifloxacin [From Avelox] Allergy (Verified 07/18/18 13:05) Unknown nitrofurantoin [From Macrodantin] Allergy (Verified 07/18/18 13:05) Unknown Penicillins Allergy (Verified 07/18/18 13:05) Unknown sulfamethoxazole [From Septra] Allergy (Verified 07/18/18 13:05) Unknown tetracycline Allergy (Verified 07/18/18 13:05) Unknown trimethoprim [From Septra] Allergy (Verified 07/18/18 13:05) Unknown mycins Allergy (Uncoded 07/18/18 13:05) Unknown Home Medications: Home Medications Medication Instructions Recorded Confirmed Last Taken Type Benzonatate [Tessalon Perle] 100 mg PO PRN 07/18/18 07/18/18 Unknown History Diltiazem HCl [Diltiazem 24Hr ER] 240 mg PO QAM 07/18/18 07/18/18 Unknown Histo ry Levothyroxine [Synthroid] 125 mcg PO QAM 07/18/18 07/18/18 Unknown History Loperamide 2 mg PO DAILY 07/18/18 07/18/18 Unknown History Metoprolol SUCCINATE ER TAB 25 mg PO QPCHS 07/18/18 07/18/18 Unknown History PARoxetine [Paxil] 20 mg PO DAILY 07/18/18 07/18/18 Unknown History Rivaroxaban [Xarelto] 15 mg PO DAILY 07/18/18 07/18/18 Unknown History Active Medications: Generic Name Dose Route Start Last Admin Trade Name Freq PRN Reason Stop Dose Admin Acetaminophen 650 mg 07/19/18 00:20 Tylenol PO Q4H PRN Pain MILD(1-3)/Fever >100.5/BEASLEY Famotidine 20 mg 07/19/18 10:00 07/20/18 09:02 Pepcid PO 20 mg QAM KIAN Administration Hydromorphone HCl 0.25 mg 07/19/18 00:20 Dilaudid IV Q3H PRN Pain, Moderate (4-6) Levothyroxine Sodium 125 mcg 07/20/18 06:00 07/20/18 05:15 Synthroid PO 125 mcg DAILY@0600 KIAN Administration Metoclopramide HCl 5 mg 07/19/18 00:20 Reglan IV Q6H PRN Nausea And Vomiting Ondansetron HCl 4 mg 07/19/18 00:20 Zofran IV Q8H PRN Nausea And Vomiting Rivaroxaban 15 mg 07/20/18 10:00 07/20/18 09:02 Xarelto PO 15 mg DAILY KIAN Administration Protocol Sodium Chloride 10 ml 07/19/18 10:00 07/20/18 09:02 Sodium Chloride Flush Syringe 10 Ml IV 10 ml BID KIAN Administration Sodium Chloride 10 ml 07/19/18 00:20 Sodium Chloride Flush Syringe 10 Ml IV PRN PRN LINE FLUSH
[2018-07-20] MEDS ORDERED: SAMSCA PO NR (09:27)
[2018-07-20] MEDS: PROVENTIL IH PRN (09:51)
[2018-07-20] MEDS ORDERED: LEVAQUIN 250MG/50ML 250 MG/50 ML BAG IV SCH (10:00)
--- NOTE | 2018-07-20 12:30 | Progress Note ---
Assessment and Plan Assessment and plan: 83-year-old woman with past medical history of hypothyroidism. The patient has been dealing with grief after the of a family member. The patient presents with worsening depression. She initially came to the ER hoping to be placed in geriatric psychiatric unit. However she was found to be severely hypoglycemic. Hospital course/plan Sodium is extremely low, nephrology consult. -TSH is extremely elevated and T4 is low. Has been restarted on Synthroid. Highly doubt that she is compliant with that at home -Continue antibiotics for UTI, follow-up urine culture -Creatinine improving on IV fluids - consult -wonder if she needs to continue xarelto, if dvt was 20 years ago would not necessarily need lifelong FREDI, will discuss with her PCP Diagnosis Severe hyponatremia Hypothyroidism symptomatic UTI Acute kidney injury due to vasomotor nephropathy Depression Hypercoagulable state Hx of RLE dvt History Interval history: Review of systems Constitutional: No fevers, no malaise, no joint pains CVS: No chest pain, no orthopnea, no dyspnea on exertion, no pedal edema GI: No abdominal pain, no diarrhea, no vomiting, no constipation Respiratory: No shortness of breath, no wheezing, no coughing Hospitalist Physical - Physical exam Narrative exam: General.: appears sad HEENT: Moist mucous membranes, extraocular muscles intact, no lymphadenopathy Neck: supple Cardiac: S1-S2 heard Lungs: clear to auscultation bilaterally Abdomen: soft , nontender, nondistended, bowel sounds positive Extremities: no edema clubbing or cyanosis Skin: no rash or lesions Neurologic: no gross focal deficits Psych: very depressed moved - Constitutional Vitals: Temp Pulse Resp BP Pulse Ox 97.8 F 110 H 18 129/55 97 07/20/18 07:38 07/20/18 10:02 07/20/18 10:02 07/20/18 07:38 07/20/18 09:44 General appearance: Present: mild distress, well-nourished Results - Labs CBC & Chem 7: 07/20/18 05:53 07/20/18 06:42 Labs: Laboratory Last Values WBC 7.3 K/mm3 (4.5-11.0) 07/20/18 05:53 RBC 3.95 M/mm3 (3.65-5.03) 07/20/18 05:53 Hgb 12.2 gm/dl (10.1-14.3) 07/20/18 05:53 Hct 39.5 % (30.3-42.9) 07/20/18 05:53 MCV 100 fl (79-97) H 07/20/18 05:53 MCH 31 pg (28-32) 07/20/18 05:53 MCHC 31 % (30-34) 07/20/18 05:53 RDW 16.4 % (13.2-15.2) H 07/20/18 05:53 Plt Count 245 K/mm3 (140-440) 07/20/18 05:53 Lymph % (Auto) Anesthesia Assistant 07/20/18 05:53 Granite % (Auto) Anesthesia Assistant 07/20/18 05:53 Eos % (Auto) Anesthesia Assistant 07/20/18 05:53 Baso % (Auto) Anesthesia Assistant 07/20/18 05:53 Lymph # Anesthesia Assistant 07/20/18 05:53 Granite # Anesthesia Assistant 07/20/18 05:53 Eos # Anesthesia Assistant 07/20/18 05:53 Baso # Anesthesia Assistant 07/20/18 05:53 Add Manual Diff Complete 07/20/18 05:53 Total Counted 100 07/20/18 05:53 Seg Neutrophils % Anesthesia Assistant 07/20/18 05:53 Seg Neuts % (Manual) 83.0 % (40.0-70.0) H 07/20/18 05:53 Band Neutrophils % 0 % 07/20/18 05:53 Lymphocytes % (Manual) 13.0 % (13.4-35.0) L 07/20/18 05:53 Reactive Lymphs % (Man) 0 % 07/20/18 05:53 Monocytes % (Manual) 2.0 % (0.0-7.3) 07/20/18 05:53 Eosinophils % (Manual) 1.0 % (0.0-4.3) 07/20/18 05:53 Basophils % (Manual) 1.0 % (0.0-1.8) 07/20/18 05:53 Metamyelocytes % 0 % 07/20/18 05:53 Myelocytes % 0 % 07/20/18 05:53 Promyelocytes % 0 % 07/20/18 05:53 Blast Cells % 0 % 07/20/18 05:53 Nucleated RBC % Not Reportable 07/20/18 05:53 Seg Neutrophils # Anesthesia Assistant 07/20/18 05:53 Seg Neutrophils # Man 6.1 K/mm3 (1.8-7.7) 07/20/18 05:53 Band Neutrophils # 0.0 K/mm3 07/20/18 05:53 Lymphocytes # (Manual) 0.9 K/mm3 (1.2-5.4) L 07/20/18 05:53 Abs React Lymphs (Man) 0.0 K/mm3 07/20/18 05:53 Monocytes # (Manual) 0.1 K/mm3 (0.0-0.8) 07/20/18 05:53 Eosinophils # (Manual) 0.1 K/mm3 (0.0-0.4) 07/20/18 05:53 Basophils # (Manual) 0.1 K/mm3 (0.0-0.1) 07/20/18 05:53 Metamyelocytes # 0.0 K/mm3 07/20/18 05:53 Myelocytes # 0.0 K/mm3 07/20/18 05:53 Promyelocytes # 0.0 K/mm3 07/20/18 05:53 Blast Cells # 0.0 K/mm3 07/20/18 05:53 WBC Morphology Not Reportable 07/20/18 05:53 Hypersegmented Neuts Not Reportable 07/20/18 05:53 Hyposegmented Neuts Not Reportable 07/20/18 05:53 Hypogranular Neuts Not Reportable 07/20/18 05:53 Smudge Cells Not Reportable 07/20/18 05:53 Toxic Granulation Not Reportable 07/20/18 05:53 Toxic Vacuolation Not Reportable 07/20/18 05:53 Dohle Bodies Not Reportable 07/20/18 05:53 Pelger-Huet Anomaly Not Reportable 07/20/18 05:53 Barbi Rods Not Reportable 07/20/18 05:53 Platelet Estimate Consistent w auto 07/20/18 05:53 Clumped Platelets Not Reportable 07/20/18 05:53 Plt Clumps, EDTA Not Reportable 07/20/18 05:53 Large Platelets Not Reportable 07/20/18 05:53 Giant Platelets Not Reportable 07/20/18 05:53 Platelet Satelliting Not Reportable 07/20/18 05:53 Plt Morphology Comment Not Reportable 07/20/18 05:53 RBC Morphology Not Reportable 07/20/18 05:53 Dimorphic RBCs Not Reportable 07/20/18 05:53 Polychromasia Not Reportable 07/20/18 05:53 Hypochromasia Few 07/20/18 05:53 Poikilocytosis 1+ 07/20/18 05:53 Anisocytosis 1+ 07/20/18 05:53 Microcytosis Few 07/20/18 05:53 Macrocytosis Not Reportable 07/20/18 05:53 Spherocytes Not Reportable 07/20/18 05:53 Pappenheimer Bodies Not Reportable 07/20/18 05:53 Sickle Cells Not Reportable 07/20/18 05:53 Target Cells Rare 07/20/18 05:53 Tear Drop Cells Not Reportable 07/20/18 05:53 Ovalocytes Rare 07/20/18 05:53 Helmet Cells Not Reportable 07/20/18 05:53 [place] Bodies Not Reportable 07/20/18 05:53 [place] Rings Not Reportable 07/20/18 05:53 [place]ora Cells Not Reportable 07/20/18 05:53 Bite Cells Not Reportable 07/20/18 05:53 Crenated Cell Not Reportable 07/20/18 05:53 Elliptocytes Not Reportable 07/20/18 05:53 Acanthocytes (Spur) Not Reportable 07/20/18 05:53 Rouleaux Not Reportable 07/20/18 05:53 Hemoglobin C Crystals Not Reportable 07/20/18 05:53 Schistocytes Not Reportable 07/20/18 05:53 Malaria parasites Not Reportable 07/20/18 05:53 [place] Bodies Not Reportable 07/20/18 05:53 Hem Pathologist Commnt No 07/20/18 05:53 Sodium 119 mmol/L (137-145) L* 07/20/18 06:42 Potassium 4.6 mmol/L (3.6-5.0) 07/20/18 06:42 Chloride 93.6 mmol/L (98-107) L 07/20/18 06:42 Carbon Dioxide 14 mmol/L (22-30) L 07/20/18 06:42 Anion Gap 16 mmol/L 07/20/18 06:42 BUN 17 mg/dL (7-17) 07/20/18 06:42 Creatinine 0.9 mg/dL (0.7-1.2) 07/20/18 06:42 Estimated GFR 60 ml/min 07/20/18 06:42 BUN/Creatinine Ratio 19 % 07/20/18 06:42 Glucose 97 mg/dL (65-100) 07/20/18 06:42 Hemoglobin A1c 6.2 % (4-6) H 07/18/18 13:14 Osmolality 253 Mosm/kg 07/18/18 13:40 Calcium 8.2 mg/dL (8.4-10.2) L 07/20/18 06:42 Total Bilirubin 0.90 mg/dL (0.1-1.2) 07/20/18 06:42 Direct Bilirubin 0.6 mg/dL (0-0.2) H 07/18/18 13:14 Indirect Bilirubin 0.5 mg/dL 07/18/18 13:14 AST 56 units/L (5-40) H 07/20/18 06:42 ALT 52 units/L (7-56) 07/20/18 06:42 Alkaline Phosphatase 83 units/L (35-129) 07/20/18 06:42 NT-Pro-B Natriuret Pep 36100 pg/mL (0-900) H 07/18/18 13:14 Total Protein 5.3 g/dL (6.3-8.2) L 07/20/18 06:42 Albumin 2.8 g/dL (3.9-5) L 07/20/18 06:42 Albumin/Globulin Ratio 1.1 % 07/20/18 06:42 TSH 26.270 mlU/mL (0.270-4.200) H 07/19/18 14:38 Free T4 0.67 ng/dL (0.76-1.46) L 07/19/18 14:38 Thyroxine (T4) 3.4 ug/dL (4.0-12.0) L 07/19/18 14:38 Urine Color [place] (Yellow) 07/18/18 14:30 Urine Turbidity Clear (Clear) 07/18/18 14:30 Urine pH 5.0 (5.0-7.0) 07/18/18 14:30 Ur Specific [place] 1.017 (1.003-1.030) 07/18/18 14:30 Urine Protein 30 mg/dl mg/dL (Negative) 07/18/18 14:30 Urine Glucose (UA) Neg mg/dL (Negative) 07/18/18 14:30 Urine Ketones Tr mg/dL (Negative) 07/18/18 14:30 Urine Blood Sm (Negative) 07/18/18 14:30 Urine Nitrite Neg (Negative) 07/18/18 14:30 Urine Bilirubin Neg (Negative) 07/18/18 14:30 Urine Urobilinogen 4.0 mg/dL (<2.0) 07/18/18 14:30 Ur Leukocyte Esterase Tr (Negative) 07/18/18 14:30 Urine WBC (Auto) 30.0 /HPF (0.0-6.0) H 07/18/18 14:30 Urine RBC (Auto) 3.0 /HPF (0.0-6.0) 07/18/18 14:30 U Epithel Cells (Auto) < 1.0 /HPF (0-13.0) 07/18/18 14:30 Urine Bacteria (Auto) 1+ /HPF (Negative) 07/18/18 14:30 Hyaline Casts 1 /LPF 07/18/18 14:30 Urine Mucus Few /HPF 07/18/18 14:30 Urine Osmolality 492 Mosm/kg 07/20/18 05:40 Urine Sodium 10 mmol/L 07/20/18 05:40 Urine Potassium 12.30 mmol/L 07/20/18 05:40 Urine Chloride 17.3 mmolL (110-250) L 07/20/18 05:40 Salicylates < 0.3 mg/dL (2.8-20.0) L 07/18/18 13:14 Urine Opiates Screen Presumptive negative 07/18/18 14:30 Urine Methadone Screen Presumptive negative 07/18/18 14:30 Acetaminophen 5.4 ug/mL (10.0-30.0) L 07/18/18 13:14 Ur Barbiturates Screen Presumptive negative 07/18/18 14:30 Ur Phencyclidine Scrn Presumptive negative 07/18/18 14:30 Ur Amphetamines Screen Presumptive negative 07/18/18 14:30 U Benzodiazepines Scrn Presumptive negative 07/18/18 14:30 Urine Cocaine Screen Presumptive negative 07/18/18 14:30 U Marijuana (THC) Screen Presumptive negative 07/18/18 14:30 Drugs of Abuse Note Disclamer 07/18/18 14:30 Plasma/Serum Alcohol < 0.01 % (0-0.07) 07/18/18 13:14
[2018-07-21 06:13] LABS: Calcium 8.4 mg/dL (8.4-10.2)
[2018-07-21] MEDS: SODIUM CHLORIDE FLUSH SYRINGE 10 ML IV SCH ×3 (06:51→21:21)
[2018-07-21] MEDS: SYNTHROID PO SCH (06:51)
[2018-07-21] MEDS: PEPCID PO SCH (09:35)
[2018-07-21] MEDS: PAXIL PO SCH (09:35)
[2018-07-21] MEDS: XARELTO PO SCH (09:35)
[2018-07-21] MEDS ORDERED: MONUROL PO ONE (10:00)
[2018-07-21] MEDS ORDERED: LOPRESSOR IV PRN (10:33)
[2018-07-21] MEDS: LOPRESSOR PO SCH ×2 (10:53→21:21)
--- NOTE | 2018-07-21 12:57 | Progress Note ---
Assessment and Plan - Patient Problems (1) Hyponatremia Current Visit: Yes Status: Acute Plan to address problem: Na improving at adequate rate after tolvaptan 15 mg PO yesterday. monitor BMP/serum osm/Urine OSm/Urine electrolytes daily to test for response. resume fluid restriction to 1.5L/day. cont synthroid (2) Hypothyroidism Current Visit: Yes Status: Chronic Plan to address problem: This may be leading to impaired free water excretion and increased ADH, ultimately contributing to her hyponatremia. Patient started on synthroid. (3) Acute systolic (congestive) heart failure Current Visit: Yes Status: Acute Plan to address problem: cont to hold IV fluids to prevent pulmonary edema and fluid overload state. Cont Lasix 40mg po qd daily Tolvaptanx 1 dose given to increase free water excretion. (4) Acute and chronic respiratory failure with hypoxia Current Visit: Yes Status: Acute Plan to address problem: Overall respiratory status is stable on 2 L of O2 via nasal cannula. avoid IVF (5) DL (acute kidney injury) Current Visit: Yes Status: Acute Plan to address problem: Renal function has improved back to baseline. (6) Depression Current Visit: Yes Status: Chronic Qualifiers: Depression Type: unspecified Qualified Code(s): F32.9 - Major depressive disorder, single episode, unspecified Plan to address problem: Further recommendations per psychiatry. Subjective Date of service: 07/21/18 Principal diagnosis: hyponatremia Interval history: pt awake, alert, in no acute distress Objective - Vital Signs Vital signs: Vital Signs - 12hr 07/21/18 07/21/18 07/21/18 03:08 07:46 10:53 Temperature 98.2 F 97.8 F Pulse Rate 138 H 115 H 136 H Respiratory 20 20 Rate Blood Pressure 135/88 Blood Pressure 129/102 [Left] O2 Sat by Pulse 97 98 Oximetry - General Appearance General appearance: well-developed, well-nourished, appears stated age EENT: ATNC, PERRL, mucous membranes moist Neck: no JVD Respiratory: Present: Clear to Ascultation Cardiology: regular, S1S2 Gastrointestinal: normoactive bowel sounds Integumentary: no rash Neurologic: no focal deficit, alert and oriented x3, strength 5/5, CN 3-12 intact Psychiatric: mood/affect appropriate, cooperative - Lab 07/20/18 05:53 07/21/18 05:33 Most recent lab results Calcium 8.4 mg/dL (8.4-10.2) 07/21/18 05:33 Urine Sodium 10 mmol/L 07/20/18 05:40 Medications & Allergies - Medications Allergies/Adverse Reactions: Allergies cefaclor [From Ceclor] Allergy (Verified 07/18/18 13:05) Unknown ciprofloxacin [From Cipro] Allergy (Verified 07/18/18 13:05) Unknown diphenhydramine [From Benadryl] Allergy (Verified 07/18/18 13:05) Unknown iodine Allergy (Verified 07/18/18 13:05) Unknown levofloxacin [From Levaquin] Allergy (Verified 07/18/18 13:05) Unknown moxifloxacin [From Avelox] Allergy (Verified 07/18/18 13:05) Unknown nitrofurantoin [From Macrodantin] Allergy (Verified 07/18/18 13:05) Unknown Penicillins Allergy (Verified 07/18/18 13:05) Unknown sulfamethoxazole [From Septra] Allergy (Verified 07/18/18 13:05) Unknown tetracycline Allergy (Verified 07/18/18 13:05) Unknown trimethoprim [From Septra] Allergy (Verified 07/18/18 13:05) Unknown mycins Allergy (Uncoded 07/18/18 13:05) Unknown Home Medications: Home Medications Medication Instructions Recorded Confirmed Last Taken Type Benzonatate [Tessalon Perle] 100 mg PO PRN 07/18/18 07/18/18 Unknown History Diltiazem HCl [Diltiazem 24Hr ER] 240 mg PO QAM 07/18/18 07/18/18 Unknown History Levothyroxine [Synthroid] 125 mcg PO QAM 07/18/18 07/18/18 Unknown History Loperamide 2 mg PO DAILY 07/18/18 07/18/18 Unknown History Metoprolol SUCCINATE ER TAB 25 mg PO QPCHS 07/18/18 07/18/18 Unknown History PARoxetine [Paxil] 20 mg PO DAILY 07/18/18 07/18/18 Unknown History Rivaroxaban [Xarelto] 15 mg PO DAILY 07/18/18 07/18/18 Unknown History Active Medications: Generic Name Dose Route Start Last Admin Trade Name Freq PRN Reason Stop Dose Admin Acetaminophen 650 mg 07/19/18 00:20 Tylenol PO Q4H PRN Pain MILD(1-3)/Fever >100.5/BEASLEY Albuterol 2.5 mg 07/20/18 09:46 07/20/18 09:51 Proventil IH 2.5 mg Q4HRT PRN Administration Shortness Of Breath Famotidine 20 mg 07/19/18 10:00 07/21/18 09:35 Pepcid PO 20 mg QAM KIAN Administration Hydromorphone HCl 0.25 mg 07/19/18 00:20 Dilaudid IV Q3H PRN Pain, Moderate (4-6) Levothyroxine Sodium 125 mcg 07/20/18 06:00 07/21/18 06:51 Synthroid PO 125 mcg DAILY@0600 KIAN Administration Metoclopramide HCl 5 mg 07/19/18 00:20 Reglan IV Q6H PRN Nausea And Vomiting Metoprolol Tartrate 50 mg 07/21/18 11:00 07/21/18 10:53 Lopressor PO 50 mg BID KIAN Administration Metoprolol Tartrate 5 mg 07/21/18 10:33 Lopressor IV Q6HR PRN sustained HR > 140 Ondansetron HCl 4 mg 07/19/18 00:20 Zofran IV Q8H PRN Nausea And Vomiting Paroxetine HCl 20 mg 07/21/18 10:00 07/21/18 09:35 Paxil PO 20 mg QDAY KIAN Administration Rivaroxaban 15 mg 07/20/18 10:00 07/21/18 09:35 Xarelto PO 15 mg DAILY KIAN Administration Protocol Sodium Chloride 10 ml 07/19/18 10:00 07/21/18 09:35 Sodium Chloride Flush Syringe 10 Ml IV 10 ml BID KIAN Administration Sodium Chloride 10 ml 07/19/18 00:20 Sodium Chloride Flush Syringe 10 Ml IV PRN PRN LINE FLUSH
--- NOTE | 2018-07-21 14:25 | Progress Note ---
Assessment and Plan Assessment and plan: 83-year-old woman with past medical history of hypothyroidism. The patient has been dealing with grief after the of a family member. The patient presents with worsening depression. She initially came to the ER hoping to be placed in geriatric psychiatric unit. However she was found to be severely hypoglycemic. Hospital course/plan Sodium is extremely low, nephrology consult appreciated -received tolvaptan on 07/20/18 -TSH is extremely elevated and T4 is low. Has been restarted on Synthroid. Highly doubt that she is compliant with that at home -rx UTI w abx, fosphomycin x1 given multiple allergies, Urine cx growing multiple organisms -Creatinine improved, sp lasix, Nephrology input appreciated - consult, cont paxil for now -Afib now in RVR, started on metoprolol, dilt held due to low BP -cont xarelto for stroke ppx Diagnosis Severe hyponatremia Hypothyroidism symptomatic UTI Acute kidney injury due to vasomotor nephropathy major Depression with acute flair afib with RVR, Hx of failed cardioversion in 2016 SP PPM Hypercoagulable state Hx of RLE dvt 20 years ago acute on chronic systolic CHF, EF 15% hx of Rx drug dependence ( opioids, ambien and benzos), was weaned off over 5 year period in suboxone clinic, now in remission History Interval history: was tachycardic ovenright and this am Review of systems Constitutional: No fevers, no malaise, no joint pains CVS: No chest pain, no orthopnea, no dyspnea on exertion, no pedal edema GI: No abdominal pain, no diarrhea, no vomiting, no constipation Respiratory: No shortness of breath, no wheezing, no coughing Hospitalist Physical - Physical exam Narrative exam: General.: appears sad HEENT: Moist mucous membranes, extraocular muscles intact, no lymphadenopathy Neck: supple Cardiac: S1-S2 heard Lungs: clear to auscultation bilaterally Abdomen: soft , nontender, nondistended, bowel sounds positive Extremities: no edema clubbing or cyanosis Skin: no rash or lesions Neurologic: no gross focal deficits Psych: less depressed today - Constitutional Vitals: Temp Pulse Resp BP Pulse Ox 97.8 F 136 H 20 135/88 98 07/21/18 07:46 07/21/18 10:53 07/21/18 07:46 07/21/18 07:46 07/21/18 07:46 General appearance: Present: mild distress, well-nourished Results - Labs CBC & Chem 7: 07/20/18 05:53 07/21/18 05:33 Labs: Laboratory Last Values WBC 7.3 K/mm3 (4.5-11.0) 07/20/18 05:53 RBC 3.95 M/mm3 (3.65-5.03) 07/20/18 05:53 Hgb 12.2 gm/dl (10.1-14.3) 07/20/18 05:53 Hct 39.5 % (30.3-42.9) 07/20/18 05:53 MCV 100 fl (79-97) H 07/20/18 05:53 MCH 31 pg (28-32) 07/20/18 05:53 MCHC 31 % (30-34) 07/20/18 05:53 RDW 16.4 % (13.2-15.2) H 07/20/18 05:53 Plt Count 245 K/mm3 (140-440) 07/20/18 05:53 Lymph % (Auto) Barrel Tester And Drainer 07/20/18 05:53 [place] % (Auto) Barrel Tester And Drainer 07/20/18 05:53 Eos % (Auto) Barrel Tester And Drainer 07/20/18 05:53 Baso % (Auto) Barrel Tester And Drainer 07/20/18 05:53 Lymph # Barrel Tester And Drainer 07/20/18 05:53 [place] # Barrel Tester And Drainer 07/20/18 05:53 Eos # Barrel Tester And Drainer 07/20/18 05:53 Baso # Barrel Tester And Drainer 07/20/18 05:53 Add Manual Diff Complete 07/20/18 05:53 Total Counted 100 07/20/18 05:53 Seg Neutrophils % Barrel Tester And Drainer 07/20/18 05:53 Seg Neuts % (Manual) 83.0 % (40.0-70.0) H 07/20/18 05:53 Band Neutrophils % 0 % 07/20/18 05:53 Lymphocytes % (Manual) 13.0 % (13.4-35.0) L 07/20/18 05:53 Reactive Lymphs % (Man) 0 % 07/20/18 05:53 Monocytes % (Manual) 2.0 % (0.0-7.3) 07/20/18 05:53 Eosinophils % (Manual) 1.0 % (0.0-4.3) 07/20/18 05:53 Basophils % (Manual) 1.0 % (0.0-1.8) 07/20/18 05:53 Metamyelocytes % 0 % 07/20/18 05:53 Myelocytes % 0 % 07/20/18 05:53 Promyelocytes % 0 % 07/20/18 05:53 Blast Cells % 0 % 07/20/18 05:53 Nucleated RBC % Not Reportable 07/20/18 05:53 Seg Neutrophils # Barrel Tester And Drainer 07/20/18 05:53 Seg Neutrophils # Man 6.1 K/mm3 (1.8-7.7) 07/20/18 05:53 Band Neutrophils # 0.0 K/mm3 07/20/18 05:53 Lymphocytes # (Manual) 0.9 K/mm3 (1.2-5.4) L 07/20/18 05:53 Abs React Lymphs (Man) 0.0 K/mm3 07/20/18 05:53 Monocytes # (Manual) 0.1 K/mm3 (0.0-0.8) 07/20/18 05:53 Eosinophils # (Manual) 0.1 K/mm3 (0.0-0.4) 07/20/18 05:53 Basophils # (Manual) 0.1 K/mm3 (0.0-0.1) 07/20/18 05:53 Metamyelocytes # 0.0 K/mm3 07/20/18 05:53 Myelocytes # 0.0 K/mm3 07/20/18 05:53 Promyelocytes # 0.0 K/mm3 07/20/18 05:53 Blast Cells # 0.0 K/mm3 07/20/18 05:53 WBC Morphology Not Reportable 07/20/18 05:53 Hypersegmented Neuts Not Reportable 07/20/18 05:53 Hyposegmented Neuts Not Reportable 07/20/18 05:53 Hypogranular Neuts Not Reportable 07/20/18 05:53 Smudge Cells Not Reportable 07/20/18 05:53 Toxic Granulation Not Reportable 07/20/18 05:53 Toxic Vacuolation Not Reportable 07/20/18 05:53 Dohle Bodies Not Reportable 07/20/18 05:53 Pelger-Huet Anomaly Not Reportable 07/20/18 05:53 Barbi Rods Not Reportable 07/20/18 05:53 Platelet Estimate Consistent w auto 07/20/18 05:53 Clumped Platelets Not Reportable 07/20/18 05:53 Plt Clumps, EDTA Not Reportable 07/20/18 05:53 Large Platelets Not Reportable 07/20/18 05:53 Giant Platelets Not Reportable 07/20/18 05:53 Platelet Satelliting Not Reportable 07/20/18 05:53 Plt Morphology Comment Not Reportable 07/20/18 05:53 RBC Morphology Not Reportable 07/20/18 05:53 Dimorphic RBCs Not Reportable 07/20/18 05:53 Polychromasia Not Reportable 07/20/18 05:53 Hypochromasia Few 07/20/18 05:53 Poikilocytosis 1+ 07/20/18 05:53 Anisocytosis 1+ 07/20/18 05:53 Microcytosis Few 07/20/18 05:53 Macrocytosis Not Reportable 07/20/18 05:53 Spherocytes Not Reportable 07/20/18 05:53 Pappenheimer Bodies Not Reportable 07/20/18 05:53 Sickle Cells Not Reportable 07/20/18 05:53 Target Cells Rare 07/20/18 05:53 Tear Drop Cells Not Reportable 07/20/18 05:53 Ovalocytes Rare 07/20/18 05:53 Helmet Cells Not Reportable 07/20/18 05:53 [place] Bodies Not Reportable 07/20/18 05:53 [place] Rings Not Reportable 07/20/18 05:53 [place] Cells Not Reportable 07/20/18 05:53 Bite Cells Not Reportable 07/20/18 05:53 Crenated Cell Not Reportable 07/20/18 05:53 Elliptocytes Not Reportable 07/20/18 05:53 Acanthocytes (Spur) Not Reportable 07/20/18 05:53 Rouleaux Not Reportable 07/20/18 05:53 Hemoglobin C Crystals Not Reportable 07/20/18 05:53 Schistocytes Not Reportable 07/20/18 05:53 Malaria parasites Not Reportable 07/20/18 05:53 Chao Bodies Not Reportable 07/20/18 05:53 Hem Pathologist Commnt No 07/20/18 05:53 Sodium 127 mmol/L (137-145) L D 07/21/18 05:33 Potassium 4.0 mmol/L (3.6-5.0) 07/21/18 05:33 Chloride 97.0 mmol/L (98-107) L 07/21/18 05:33 Carbon Dioxide 17 mmol/L (22-30) L 07/21/18 05:33 Anion Gap 17 mmol/L 07/21/18 05:33 BUN 15 mg/dL (7-17) 07/21/18 05:33 Creatinine 1.1 mg/dL (0.7-1.2) 07/21/18 05:33 Estimated GFR 47 ml/min 07/21/18 05:33 BUN/Creatinine Ratio 14 % 07/21/18 05:33 Glucose 106 mg/dL (65-100) H 07/21/18 05:33 Hemoglobin A1c 6.2 % (4-6) H 07/18/18 13:14 Osmolality 268 Mosm/kg 07/21/18 05:33 Calcium 8.4 mg/dL (8.4-10.2) 07/21/18 05:33 Total Bilirubin 0.90 mg/dL (0.1-1.2) 07/20/18 06:42 Direct Bilirubin 0.6 mg/dL (0-0.2) H 07/18/18 13:14 Indirect Bilirubin 0.5 mg/dL 07/18/18 13:14 AST 56 units/L (5-40) H 07/20/18 06:42 ALT 52 units/L (7-56) 07/20/18 06:42 Alkaline Phosphatase 83 units/L (35-129) 07/20/18 06:42 NT-Pro-B Natriuret Pep 85102 pg/mL (0-900) H 07/18/18 13:14 Total Protein 5.3 g/dL (6.3-8.2) L 07/20/18 06:42 Albumin 2.8 g/dL (3.9-5) L 07/20/18 06:42 Albumin/Globulin Ratio 1.1 % 07/20/18 06:42 TSH 26.270 mlU/mL (0.270-4.200) H 07/19/18 14:38 Free T4 0.67 ng/dL (0.76-1.46) L 07/19/18 14:38 Thyroxine (T4) 3.4 ug/dL (4.0-12.0) L 07/19/18 14:38 Urine Color [place] (Yellow) 07/18/18 14:30 Urine Turbidity Clear (Clear) 07/18/18 14:30 Urine pH 5.0 (5.0-7.0) 07/18/18 14:30 Ur Specific [place] 1.017 (1.003-1.030) 07/18/18 14:30 Urine Protein 30 mg/dl mg/dL (Negative) 07/18/18 14:30 Urine Glucose (UA) Neg mg/dL (Negative) 07/18/18 14:30 Urine Ketones Tr mg/dL (Negative) 07/18/18 14:30 Urine Blood Sm (Negative) 07/18/18 14:30 Urine Nitrite Neg (Negative) 07/18/18 14:30 Urine Bilirubin Neg (Negative) 07/18/18 14:30 Urine Urobilinogen 4.0 mg/dL (<2.0) 07/18/18 14:30 Ur Leukocyte Esterase Tr (Negative) 07/18/18 14:30 Urine WBC (Auto) 30.0 /HPF (0.0-6.0) H 07/18/18 14:30 Urine RBC (Auto) 3.0 /HPF (0.0-6.0) 07/18/18 14:30 U Epithel Cells (Auto) < 1.0 /HPF (0-13.0) 07/18/18 14:30 Urine Bacteria (Auto) 1+ /HPF (Negative) 07/18/18 14:30 Hyaline Casts 1 /LPF 07/18/18 14:30 Urine Mucus Few /HPF 07/18/18 14:30 Urine Osmolality 492 Mosm/kg 07/20/18 05:40 Urine Sodium 10 mmol/L 07/20/18 05:40 Urine Potassium 12.30 mmol/L 07/20/18 05:40 Urine Chloride 17.3 mmolL (110-250) L 07/20/18 05:40 Salicylates < 0.3 mg/dL (2.8-20.0) L 07/18/18 13:14 Urine Opiates Screen Presumptive negative 07/18/18 14:30 Urine Methadone Screen Presumptive negative 07/18/18 14:30 Acetaminophen 5.4 ug/mL (10.0-30.0) L 07/18/18 13:14 Ur Barbiturates Screen Presumptive negative 07/18/18 14:30 Ur Phencyclidine Scrn Presumptive negative 07/18/18 14:30 Ur Amphetamines Screen Presumptive negative 07/18/18 14:30 U Benzodiazepines Scrn Presumptive negative 07/18/18 14:30 Urine Cocaine Screen Presumptive negative 07/18/18 14:30 U Marijuana (THC) Screen Presumptive negative 07/18/18 14:30 Drugs of Abuse Note Disclamer 07/18/18 14:30 Plasma/Serum Alcohol < 0.01 % (0-0.07) 07/18/18 13:14
[2018-07-21] MEDS: LASIX PO SCH (15:06)
--- NOTE | 2018-07-21 17:41 | Consultation ---
History of Present Illness - Reason for Consult Consult date: 07/21/18 Reason for consult: depression - Chief Complaint Chief complaint: "I'm withdrawn." - History of Present Psychiatric Illness 83 year old WF seen for psychiatric evaluation. Her daughter and [id number] provided history. Both reports she has been declining in mental health and now physical health over the past several months. Since the loss of dog and the sudden of her daughter, depressive symptoms worsened. She acknowledges depression and has passive thoughts of . She describes herself as withdrawn. She has not showered in weeks. Her family lives close by and checks on her daily and cooks her food. Mobility has declined. Her daughter states she has given up. When she was brought to the hospital, the expectation was she would be admitted to a [facility] program. Hyponatremia and elevated TSH identified. Her daughter states all blood tests were normal several months ago. Ms. Lim states she is compliant with medication but her daughter and d-in-law state otherwise. She has been on paxil since 2010. She has a history of opioid dependence and her last dose of subutex was in 2015. She last had ambien 12/2015. Medications and Allergies Allergies Allergy/AdvReac Type Severity Reaction Status Date / Time cefaclor [From Ceclor] Allergy Unknown Verified 07/18/18 13:05 ciprofloxacin [From Cipro] Allergy Unknown Verified 07/18/18 13:05 diphenhydramine Allergy Unknown Verified 07/18/18 13:05 [From Benadryl] iodine Allergy Unknown Verified 07/18/18 13:05 levofloxacin [From Levaquin] Allergy Unknown Verified 07/18/18 13:05 moxifloxacin [From Avelox] Allergy Unknown Verified 07/18/18 13:05 nitrofurantoin Allergy Unknown Verified 07/18/18 13:05 [From Macrodantin] Penicillins Allergy Unknown Verified 07/18/18 13:05 sulfamethoxazole Allergy Unknown Verified 07/18/18 13:05 [From Septra] tetracycline Allergy Unknown Verified 07/18/18 13:05 trimethoprim [From Septra] Allergy Unknown Verified 07/18/18 13:05 mycins Allergy Unknown Uncoded 07/18/18 13:05 Home Medications Medication Instructions Recorded Confirmed Last Taken Type Benzonatate [Tessalon Perle] 100 mg PO PRN 07/18/18 07/18/18 Unknown History Diltiazem HCl [Diltiazem 24Hr ER] 240 mg PO [facility] 07/18/18 07/18/18 Unknown Histor y Levothyroxine [Synthroid] 125 mcg PO [facility] 07/18/18 07/18/18 Unknown History Loperamide 2 mg PO DAILY 07/18/18 07/18/18 Unknown History [facility] 07/18/18 Unknown History PARoxetine [Paxil] 20 mg PO DAILY 07/18/18 07/18/18 Unknown History Rivaroxaban [Xarelto] 15 mg PO DAILY 07/18/18 07/18/18 Unknown History Active Meds: Active Medications Acetaminophen (Tylenol) 650 mg PO Q4H PRN PRN Reason: Pain MILD(1-3)/Fever >100.5/BEASLEY Albuterol (Proventil) 2.5 mg IH Q4HRT PRN PRN Reason: Shortness Of Breath Last Admin: 07/20/18 09:51 Dose: 2.5 mg Documented by: Famotidine (Pepcid) [facility] Last Admin: 07/21/18 09:35 Dose: 20 mg Documented by: Furosemide (Lasix) 40 mg PO QDAY [facility] Last Admin: 07/21/18 15:06 Dose: 40 mg Documented by: Hydromorphone HCl (Dilaudid) 0.25 mg IV Q3H PRN PRN Reason: Pain, Moderate (4-6) Levothyroxine Sodium (Synthroid) 125 mcg PO DAILY@0600 [facility] Last Admin: 07/21/18 06:51 Dose: 125 mcg Documented by: Metoclopramide HCl (Reglan) 5 mg IV Q6H PRN PRN Reason: Nausea And Vomiting Metoprolol Tartrate (Lopressor) 50 mg PO BID [facility] Last Admin: 07/21/18 10:53 Dose: 50 mg Documented by: Metoprolol Tartrate (Lopressor) 5 mg IV Q6HR PRN PRN Reason: sustained HR > 140 Ondansetron HCl (Zofran) 4 mg IV Q8H PRN PRN Reason: Nausea And Vomiting Paroxetine HCl (Paxil) 20 mg PO QDAY [facility] Last Admin: 07/21/18 09:35 Dose: 20 mg Documented by: Rivaroxaban (Xarelto) 15 mg PO DAILY [facility]; Protocol Last Admin: 07/21/18 09:35 Dose: 15 mg Documented by: Sodium Chloride (Sodium Chloride Flush Syringe 10 Ml) 10 ml IV BID [facility] Last Admin: 07/21/18 09:35 Dose: 10 ml Documented by: Sodium Chloride (Sodium Chloride Flush Syringe 10 Ml) 10 ml IV PRN PRN PRN Reason: LINE FLUSH Past psychiatric history - Past Medical History Past Medical History: other (IBS/GERD/hypothyroidism/CHF/hx of DVT) - past Psychiatric treatment and history Psych: Anxiety, Addictions, Depression - Social History Social history: Lives alone, full code Mental Status Exam - Vital signs Last Vital Signs Temp 98.0 F 07/21/18 13:48 Pulse 101 H 07/21/18 13:48 Resp 20 07/21/18 13:48 BP 97/72 07/21/18 13:48 Pulse Ox 91 07/21/18 13:48 - Exam Orientation: time, place, person Affect: depressed Mood: congruent with affect Thought content: other (passive thoughts of ) Thought Process: Intact Perceptions: none Speech: normal rate and pattern Concentration: focused Motor activity: other ([place]) Level of consciousness: alert Memory: Intact Sleep Symptoms: Hypersomnia Appetite: decreased Interaction: cooperative Results Result Diagrams: 07/20/18 05:53 07/21/18 05:33 Abnormal lab results 07/21/18 Range/Units 05:33 Sodium 127 L D (137-145) mmol/L Chloride 97.0 L (98-107) mmol/L Carbon Dioxide 17 L (22-30) mmol/L Glucose 106 H (65-100) mg/dL All other labs normal. Assessment and Plan Assessment and plan: Impression: Major depressive disorder, severe, recurrent, without psychotic features. Vegetative symptoms present and daily functioning is impaired. She is unable to care for herself. She is willing to voluntarily be admitted to a psychiatric unit. 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 paxil can contribute to hyponatremia but benefit outweighs risk dispo: transfer to [facility] program when medically cleared. Her family is [place] pportive. Staffed with Dr. Jasper Barakat
[2018-07-22] MEDS: SYNTHROID PO SCH (05:53)
--- NOTE | 2018-07-22 07:24 | Progress Note ---
Assessment and Plan - Patient Problems (1) Hyponatremia Current Visit: Yes Status: Acute Plan to address problem: Na improving at adequate rate after tolvaptan 15 mg PO x 1dose. monitor BMP/serum osm/Urine OSm/Urine electrolytes daily to test for response. resume fluid restriction to 1.5L/day, cont lasix 40mg po qd. cont synthroid. (2) Hypothyroidism Current Visit: Yes Status: Chronic Plan to address problem: This may be leading to impaired free water excretion and increased ADH, ultimately contributing to her hyponatremia. Patient started on synthroid. (3) Acute systolic (congestive) heart failure Current Visit: Yes Status: Acute Plan to address problem: cont fluid restriction to 1.5/day. Cont Lasix 40mg po qd daily. (4) Acute and chronic respiratory failure with hypoxia Current Visit: Yes Status: Acute Plan to address problem: Overall respiratory status is stable on 2 L of O2 via nasal cannula. avoid IVF (5) DL (acute kidney injury) Current Visit: Yes Status: Acute (6) Depression Current Visit: Yes Status: Chronic Qualifiers: Depression Type: unspecified Qualified Code(s): F32.9 - Major depressive disorder, single episode, unspecified Subjective Date of service: 07/22/18 Principal diagnosis: hyponatremia Interval history: pt awake, alert, in no acute distress Objective - Vital Signs Vital signs: Vital Signs - 12hr 07/21/18 07/21/18 07/21/18 19:40 19:41 21:21 Temperature 97.8 F Pulse Rate 99 H 99 H Respiratory 20 Rate Blood Pressure 109/77 Blood Pressure 109/77 [Left] O2 Sat by Pulse 96 Oximetry 07/21/18 07/22/18 22:00 01:53 Temperature 97.5 F L Pulse Rate 99 H 101 H Respiratory 20 Rate Blood Pressure 113/72 Blood Pressure [Left] O2 Sat by Pulse 95 Oximetry - General Appearance General appearance: well-developed, well-nourished, appears stated age, obese EENT: ATNC, PERRL, mucous membranes moist Neck: no JVD Respiratory: Present: Clear to Ascultation Cardiology: regular, S1S2 Gastrointestinal: normoactive bowel sounds Integumentary: no rash, other (trace edema b/l LE ) Neurologic: no focal deficit, alert and oriented x3, strength 5/5, CN 3-12 intact Psychiatric: mood/affect appropriate, cooperative - Lab 07/20/18 05:53 07/21/18 05:33 Most recent lab results Calcium 8.4 mg/dL (8.4-10.2) 07/21/18 05:33 Urine Sodium 10 mmol/L 07/20/18 05:40 Medications & Allergies - Medications Allergies/Adverse Reactions: Allergies cefaclor [From Ceclor] Allergy (Verified 07/18/18 13:05) Unknown ciprofloxacin [From Cipro] Allergy (Verified 07/18/18 13:05) Unknown diphenhydramine [From Benadryl] Allergy (Verified 07/18/18 13:05) Unknown iodine Allergy (Verified 07/18/18 13:05) Unknown levofloxacin [From Levaquin] Allergy (Verified 07/18/18 13:05) Unknown moxifloxacin [From Avelox] Allergy (Verified 07/18/18 13:05) Unknown nitrofurantoin [From Macrodantin] Allergy (Verified 07/18/18 13:05) Unknown Penicillins Allergy (Verified 07/18/18 13:05) Unknown sulfamethoxazole [From Septra] Allergy (Verified 07/18/18 13:05) Unknown tetracycline Allergy (Verified 07/18/18 13:05) Unknown trimethoprim [From Septra] Allergy (Verified 07/18/18 13:05) Unknown mycins Allergy (Uncoded 07/18/18 13:05) Unknown Home Medications: Home Medications Medication Instructions Recorded Confirmed Last Taken Type Benzonatate [Tessalon Perle] 100 mg PO PRN 07/18/18 07/18/18 Unknown History Diltiazem HCl [Diltiazem 24Hr ER] 240 mg PO QAM 07/18/18 07/18/18 Unknown History Levothyroxine [Synthroid] 125 mcg PO QAM 07/18/18 07/18/18 Unknown History Loperamide 2 mg PO DAILY 07/18/18 07/18/18 Unknown History Metoprolol SUCCINATE ER TAB 25 mg PO QPCHS 07/18/18 07/18/18 Unknown History PARoxetine [Paxil] 20 mg PO DAILY 07/18/18 07/18/18 Unknown History Rivaroxaban [Xarelto] 15 mg PO DAILY 07/18/18 07/18/18 Unknown History Active Medications: Generic Name Dose Route Start Last Admin Trade Name Freq PRN Reason Stop Dose Admin Acetaminophen 650 mg 07/19/18 00:20 Tylenol PO Q4H PRN Pain MILD(1-3)/Fever >100.5/BEASLEY Albuterol 2.5 mg 07/20/18 09:46 07/20/18 09:51 Proventil IH 2.5 mg Q4HRT PRN Administration Shortness Of Breath Famotidine 20 mg 07/19/18 10:00 07/21/18 09:35 Pepcid PO 20 mg QAM KIAN Administration Furosemide 40 mg 07/21/18 14:00 07/21/18 15:06 Lasix PO 40 mg QDAY KIAN Administration Hydromorphone HCl 0.25 mg 07/19/18 00:20 Dilaudid IV Q3H PRN Pain, Moderate (4-6) Levothyroxine Sodium 125 mcg 07/20/18 06:00 07/22/18 05:53 Synthroid PO 125 mcg DAILY@0600 KIAN Administration Metoclopramide HCl 5 mg 07/19/18 00:20 Reglan IV Q6H PRN Nausea And Vomiting Metoprolol Tartrate 50 mg 07/21/18 11:00 07/21/18 21:21 Lopressor PO 50 mg BID KIAN Administration Metoprolol Tartrate 5 mg 07/21/18 10:33 Lopressor IV Q6HR PRN sustained HR > 140 Ondansetron HCl 4 mg 07/19/18 00:20 Zofran IV Q8H PRN Nausea And Vomiting Paroxetine HCl 20 mg 07/21/18 10:00 07/21/18 09:35 Paxil PO 20 mg QDAY KIAN Administration Rivaroxaban 15 mg 07/20/18 10:00 07/21/18 09:35 Xarelto PO 15 mg DAILY KIAN Administration Protocol Sodium Chloride 10 ml 07/19/18 10:00 07/21/18 21:21 Sodium Chloride Flush Syringe 10 Ml IV 10 ml BID KIAN Administration Sodium Chloride 10 ml 07/19/18 00:20 Sodium Chloride Flush Syringe 10 Ml IV PRN PRN LINE FLUSH
[2018-07-22] MEDS: LOPRESSOR PO SCH ×3 (09:00→21:07)
[2018-07-22 09:59] LABS: Calcium 8.6 mg/dL (8.4-10.2)
--- NOTE | 2018-07-22 10:15 | Progress Note ---
Assessment and Plan Assessment and plan: 83-year-old woman with past medical history of hypothyroidism. The patient has been dealing with grief after the of a family member. The patient presents with worsening depression. She initially came to the ER hoping to be placed in geriatric psychiatric unit. However she was found to be severely hypoglycemic. Hospital course/plan Sodium was as low as 119 on admission, nephrology consult appreciated -received tolvaptan on 07/20/18, Na now improved -TSH is extremely elevated and T4 is low. Has been restarted on Synthroid. Highly doubt that she is compliant with that at home -rx UTI w abx, fosphomycin x1 given multiple allergies, Urine cx growing multiple organisms -received lasix, creat improved, now put back on water restriction -MH consult appreciated, cont paxil for now; while Paxil can cause hyponatremia, the benefits outweighed the risk in this patient with chronic depression -Afib now in RVR, started on metoprolol, changed to every 8 hours, dilt held due to low BP -cont xarelto for stroke ppx -Wean off oxygen as tolerated Diagnosis Severe hyponatremia Hypothyroidism symptomatic UTI Acute kidney injury due to vasomotor nephropathy major Depression with acute flair afib with RVR, Hx of failed cardioversion in 2016 SP PPM Hypercoagulable state Hx of RLE dvt 20 years ago acute on chronic systolic CHF, EF 15% hx of Rx drug dependence ( opioids, ambien and benzos), was weaned off over 5 year period in suboxone clinic, now in remission Acute hypoxic respiratory failure due to CHF exacerbation History Interval history: Tachycardia is improved Review of systems Constitutional: No fevers, no malaise, no joint pains CVS: No chest pain, no orthopnea, no dyspnea on exertion, no pedal edema GI: No abdominal pain, no diarrhea, no vomiting, no constipation Respiratory: No shortness of breath, no wheezing, no coughing Hospitalist Physical - Physical exam Narrative exam: General.: appears sad HEENT: Moist mucous membranes, extraocular muscles intact, no lymphadenopathy Neck: supple Cardiac: S1-S2 heard Lungs: clear to auscultation bilaterally Abdomen: soft , nontender, nondistended, bowel sounds positive Extremities: no edema clubbing or cyanosis Skin: no rash or lesions Neurologic: no gross focal deficits Psych: less depressed today - Constitutional Vitals: Temp Pulse Resp BP Pulse Ox 97.3 F L 94 H 20 96/77 95 07/22/18 07:35 07/22/18 07:35 07/22/18 07:35 07/22/18 07:35 07/22/18 01:53 General appearance: Present: well-nourished Results - Labs CBC & Chem 7: 07/20/18 05:53 07/22/18 07:11 Labs: Laboratory Last Values WBC 7.3 K/mm3 (4.5-11.0) 07/20/18 05:53 RBC 3.95 M/mm3 (3.65-5.03) 07/20/18 05:53 Hgb 12.2 gm/dl (10.1-14.3) 07/20/18 05:53 Hct 39.5 % (30.3-42.9) 07/20/18 05:53 MCV 100 fl (79-97) H 07/20/18 05:53 MCH 31 pg (28-32) 07/20/18 05:53 MCHC 31 % (30-34) 07/20/18 05:53 RDW 16.4 % (13.2-15.2) H 07/20/18 05:53 Plt Count 245 K/mm3 (140-440) 07/20/18 05:53 Lymph % (Auto) Qa Test Analyst 07/20/18 05:53 [place] % (Auto) Qa Test Analyst 07/20/18 05:53 Eos % (Auto) Qa Test Analyst 07/20/18 05:53 Baso % (Auto) Qa Test Analyst 07/20/18 05:53 Lymph # Qa Test Analyst 07/20/18 05:53 [place] # Qa Test Analyst 07/20/18 05:53 Eos # Qa Test Analyst 07/20/18 05:53 Baso # Qa Test Analyst 07/20/18 05:53 Add Manual Diff Complete 07/20/18 05:53 Total Counted 100 07/20/18 05:53 Seg Neutrophils % Qa Test Analyst 07/20/18 05:53 Seg Neuts % (Manual) 83.0 % (40.0-70.0) H 07/20/18 05:53 Band Neutrophils % 0 % 07/20/18 05:53 Lymphocytes % (Manual) 13.0 % (13.4-35.0) L 07/20/18 05:53 Reactive Lymphs % (Man) 0 % 07/20/18 05:53 Monocytes % (Manual) 2.0 % (0.0-7.3) 07/20/18 05:53 Eosinophils % (Manual) 1.0 % (0.0-4.3) 07/20/18 05:53 Basophils % (Manual) 1.0 % (0.0-1.8) 07/20/18 05:53 Metamyelocytes % 0 % 07/20/18 05:53 Myelocytes % 0 % 07/20/18 05:53 Promyelocytes % 0 % 07/20/18 05:53 Blast Cells % 0 % 07/20/18 05:53 Nucleated RBC % Not Reportable 07/20/18 05:53 Seg Neutrophils # Qa Test Analyst 07/20/18 05:53 Seg Neutrophils # Man 6.1 K/mm3 (1.8-7.7) 07/20/18 05:53 Band Neutrophils # 0.0 K/mm3 07/20/18 05:53 Lymphocytes # (Manual) 0.9 K/mm3 (1.2-5.4) L 07/20/18 05:53 Abs React Lymphs (Man) 0.0 K/mm3 07/20/18 05:53 Monocytes # (Manual) 0.1 K/mm3 (0.0-0.8) 07/20/18 05:53 Eosinophils # (Manual) 0.1 K/mm3 (0.0-0.4) 07/20/18 05:53 Basophils # (Manual) 0.1 K/mm3 (0.0-0.1) 07/20/18 05:53 Metamyelocytes # 0.0 K/mm3 07/20/18 05:53 Myelocytes # 0.0 K/mm3 07/20/18 05:53 Promyelocytes # 0.0 K/mm3 07/20/18 05:53 Blast Cells # 0.0 K/mm3 07/20/18 05:53 WBC Morphology Not Reportable 07/20/18 05:53 Hypersegmented Neuts Not Reportable 07/20/18 05:53 Hyposegmented Neuts Not Reportable 07/20/18 05:53 Hypogranular Neuts Not Reportable 07/20/18 05:53 Smudge Cells Not Reportable 07/20/18 05:53 Toxic Granulation Not Reportable 07/20/18 05:53 Toxic Vacuolation Not Reportable 07/20/18 05:53 Dohle Bodies Not Reportable 07/20/18 05:53 Pelger-Huet Anomaly Not Reportable 07/20/18 05:53 Barbi Rods Not Reportable 07/20/18 05:53 Platelet Estimate Consistent w auto 07/20/18 05:53 Clumped Platelets Not Reportable 07/20/18 05:53 Plt Clumps, EDTA Not Reportable 07/20/18 05:53 Large Platelets Not Reportable 07/20/18 05:53 Giant Platelets Not Reportable 07/20/18 05:53 Platelet Satelliting Not Reportable 07/20/18 05:53 Plt Morphology Comment Not Reportable 07/20/18 05:53 RBC Morphology Not Reportable 07/20/18 05:53 Dimorphic RBCs Not Reportable 07/20/18 05:53 Polychromasia Not Reportable 07/20/18 05:53 Hypochromasia Few 07/20/18 05:53 Poikilocytosis 1+ 07/20/18 05:53 Anisocytosis 1+ 07/20/18 05:53 Microcytosis Few 07/20/18 05:53 Macrocytosis Not Reportable 07/20/18 05:53 Spherocytes Not Reportable 07/20/18 05:53 Pappenheimer Bodies Not Reportable 07/20/18 05:53 Sickle Cells Not Reportable 07/20/18 05:53 Target Cells Rare 07/20/18 05:53 Tear Drop Cells Not Reportable 07/20/18 05:53 Ovalocytes Rare 07/20/18 05:53 Helmet Cells Not Reportable 07/20/18 05:53 Long-Falling [place] Bodies Not Reportable 07/20/18 05:53 [place] Rings Not Reportable 07/20/18 05:53 [place] Cells Not Reportable 07/20/18 05:53 Bite Cells Not Reportable 07/20/18 05:53 Crenated Cell Not Reportable 07/20/18 05:53 Elliptocytes Not Reportable 07/20/18 05:53 Acanthocytes (Spur) Not Reportable 07/20/18 05:53 Rouleaux Not Reportable 07/20/18 05:53 Hemoglobin C Crystals Not Reportable 07/20/18 05:53 Schistocytes Not Reportable 07/20/18 05:53 Malaria parasites Not Reportable 07/20/18 05:53 Chao Bodies Not Reportable 07/20/18 05:53 Hem Pathologist Commnt No 07/20/18 05:53 Sodium 127 mmol/L (137-145) L 07/22/18 07:11 Potassium 4.0 mmol/L (3.6-5.0) 07/21/18 05:33 Chloride 95.0 mmol/L (98-107) L 07/22/18 07:11 Carbon Dioxide 15 mmol/L (22-30) L 07/22/18 07:11 Anion Gap 17 mmol/L 07/21/18 05:33 BUN 17 mg/dL (7-17) 07/22/18 07:11 Creatinine 1.3 mg/dL (0.7-1.2) H 07/22/18 07:11 Estimated GFR 39 ml/min 07/22/18 07:11 BUN/Creatinine Ratio 13 % 07/22/18 07:11 Glucose 94 mg/dL (65-100) 07/22/18 07:11 Hemoglobin A1c 6.2 % (4-6) H 07/18/18 13:14 Osmolality 268 Mosm/kg 07/21/18 05:33 Calcium 8.6 mg/dL (8.4-10.2) 07/22/18 07:11 Total Bilirubin 0.90 mg/dL (0.1-1.2) 07/20/18 06:42 Direct Bilirubin 0.6 mg/dL (0-0.2) H 07/18/18 13:14 Indirect Bilirubin 0.5 mg/dL 07/18/18 13:14 AST 56 units/L (5-40) H 07/20/18 06:42 ALT 52 units/L (7-56) 07/20/18 06:42 Alkaline Phosphatase 83 units/L (35-129) 07/20/18 06:42 NT-Pro-B Natriuret Pep 28070 pg/mL (0-900) H 07/18/18 13:14 Total Protein 5.3 g/dL (6.3-8.2) L 07/20/18 06:42 Albumin 2.8 g/dL (3.9-5) L 07/20/18 06:42 Albumin/Globulin Ratio 1.1 % 07/20/18 06:42 TSH 26.270 mlU/mL (0.270-4.200) H 07/19/18 14:38 Free T4 0.67 ng/dL (0.76-1.46) L 07/19/18 14:38 Thyroxine (T4) 3.4 ug/dL (4.0-12.0) L 07/19/18 14:38 Urine Color [place] (Yellow) 07/18/18 14:30 Urine Turbidity Clear (Clear) 07/18/18 14:30 Urine pH 5.0 (5.0-7.0) 07/18/18 14:30 Ur Specific [place] 1.017 (1.003-1.030) 07/18/18 14:30 Urine Protein 30 mg/dl mg/dL (Negative) 07/18/18 14:30 Urine Glucose (UA) Neg mg/dL (Negative) 07/18/18 14:30 Urine Ketones Tr mg/dL (Negative) 07/18/18 14:30 Urine Blood Sm (Negative) 07/18/18 14:30 Urine Nitrite Neg (Negative) 07/18/18 14:30 Urine Bilirubin Neg (Negative) 07/18/18 14:30 Urine Urobilinogen 4.0 mg/dL (<2.0) 07/18/18 14:30 Ur Leukocyte Esterase Tr (Negative) 07/18/18 14:30 Urine WBC (Auto) 30.0 /HPF (0.0-6.0) H 07/18/18 14:30 Urine RBC (Auto) 3.0 /HPF (0.0-6.0) 07/18/18 14:30 U Epithel Cells (Auto) < 1.0 /HPF (0-13.0) 07/18/18 14:30 Urine Bacteria (Auto) 1+ /HPF (Negative) 07/18/18 14:30 Hyaline Casts 1 /LPF 07/18/18 14:30 Urine Mucus Few /HPF 07/18/18 14:30 Urine Osmolality 492 Mosm/kg 07/20/18 05:40 Urine Sodium 10 mmol/L 07/20/18 05:40 Urine Potassium 12.30 mmol/L 07/20/18 05:40 Urine Chloride 17.3 mmolL (110-250) L 07/20/18 05:40 Salicylates < 0.3 mg/dL (2.8-20.0) L 07/18/18 13:14 Urine Opiates Screen Presumptive negative 07/18/18 14:30 Urine Methadone Screen Presumptive negative 07/18/18 14:30 Acetaminophen 5.4 ug/mL (10.0-30.0) L 07/18/18 13:14 Ur Barbiturates Screen Presumptive negative 07/18/18 14:30 Ur Phencyclidine Scrn Presumptive negative 07/18/18 14:30 Ur Amphetamines Screen Presumptive negative 07/18/18 14:30 U Benzodiazepines Scrn Presumptive negative 07/18/18 14:30 Urine Cocaine Screen Presumptive negative 07/18/18 14:30 U Marijuana (THC) Screen Presumptive negative 07/18/18 14:30 Drugs of Abuse Note Disclamer 07/18/18 14:30 Plasma/Serum Alcohol < 0.01 % (0-0.07) 07/18/18 13:14
[2018-07-22] MEDS: PAXIL PO SCH (10:54)
[2018-07-22] MEDS: PEPCID PO SCH (10:54)
[2018-07-22] MEDS: LASIX PO SCH (10:54)
[2018-07-22] MEDS: SODIUM CHLORIDE FLUSH SYRINGE 10 ML IV SCH ×2 (10:54→21:07)
[2018-07-22] MEDS: XARELTO PO SCH (10:54)
--- NOTE | 2018-07-22 13:50 | Consultation ---
History of Present Illness Consult date: 07/22/18 Consult reason: atrial fibrillation (Patient was noted to margarita atrial fi brillation with rapid VR.) History of present illness: >ER note> 83-year-old female that arrives with her daughter and perhaps sister. The daughter is stating that the patient needs to be admitted to the geriatric psychiatry unit here. I explained to her that we need to medically screen the patient and determine indications for medical stabilization and admission. After a while she seemed to understand. However she is stating that "16 doctors told her the same thing". The sister tells me that the patient has been on Lasix intermittently "once a week or once a month". The patient has a variety of medical problems that have been chronic, long- standing and perhaps deteriorating. She lives alone. She has had chronic depression. They have been multiple family members that have this year as well as her pad of 17 years. She has had chronic diarrhea. She has had recent persistent cough and or by mouth intake. She complains of generalized weakness and believe she is dehydrated. The patient denies any substantial pain. She states that her abdomen is a bit bloated. Sodium is extremely low, -received tolvaptan on 07/20/18 -TSH is extremely elevated and T4 is low. Has been restarted on Synthroid. Highly doubt that she is compliant with that at home -rx UTI w abx, fosphomycin x1 given multiple allergies, Urine cx growing multiple organisms -Creatinine improved, sp lasix, - consult, cont paxil for now -Afib now in RVR, started on metoprolol, dilt held due to low BP -cont xarelto for stroke ppx SP PPM Hypercoagulable state Hx of RLE dvt 20 years ago acute on chronic systolic CHF, EF 15%,noted on echo done during this admission. Past History Past Medical History: other (IBS/GERD/hypothyroidism/CHF/hx of DVT) Past Surgical History: appendectomy, cataract removal, Other (pacemaker placement ) Social history: Lives alone, full code Family history: no significant family history Medications and Allergies Allergies Allergy/AdvReac Type Severity Reaction Status Date / Time cefaclor [From Ceclor] Allergy Unknown Verified 07/18/18 13:05 ciprofloxacin [From Cipro] Allergy Unknown Verified 07/18/18 13:05 diphenhydramine Allergy Unknown Verified 07/18/18 13:05 [From Benadryl] iodine Allergy Unknown Verified 07/18/18 13:05 levofloxacin [From Levaquin] Allergy Unknown Verified 07/18/18 13:05 moxifloxacin [From Avelox] Allergy Unknown Verified 07/18/18 13:05 nitrofurantoin Allergy Unknown Verified 07/18/18 13:05 [From Macrodantin] Penicillins Allergy Unknown Verified 07/18/18 13:05 sulfamethoxazole Allergy Unknown Verified 07/18/18 13:05 [From Septra] tetracycline Allergy Unknown Verified 07/18/18 13:05 trimethoprim [From Septra] Allergy Unknown Verified 07/18/18 13:05 mycins Allergy Unknown Uncoded 07/18/18 13:05 Home Medications Medication Instructions Recorded Confirmed Last Taken Type Benzonatate [Tessalon Perle] 100 mg PO PRN 07/18/18 07/18/18 Unknown History Diltiazem HCl [Diltiazem 24Hr ER] 240 mg PO [facility] 07/18/18 07/18/18 Unknown History Levothyroxine [Synthroid] 125 mcg PO QAM 07/18/18 07/18/18 Unknown History Loperamide 2 mg PO DAILY 07/18/18 07/18/18 Unknown History Metoprolol SUCCINATE ER TAB 25 mg PO QPCHS 07/18/18 07/18/18 Unknown History PARoxetine [Paxil] 20 mg PO DAILY 07/18/18 07/18/18 Unknown History Rivaroxaban [Xarelto] 15 mg PO DAILY 07/18/18 07/18/18 Unknown History Active Meds: Active Medications Acetaminophen (Tylenol) 650 mg PO Q4H PRN PRN Reason: Pain MILD(1-3)/Fever >100.5/BEASLEY Albuterol (Proventil) 2.5 mg IH Q4HRT PRN PRN Reason: Shortness Of Breath Last Admin: 07/20/18 09:51 Dose: 2.5 mg Documented by: Famotidine (Pepcid) 20 mg PO QAM [facility] Last Admin: 07/22/18 10:54 Dose: Not Given Documented by: Furosemide (Lasix) 40 mg PO QDAY [facility] Last Admin: 07/22/18 10:54 Dose: Not Given Documented by: Hydromorphone HCl (Dilaudid) 0.25 mg IV Q3H PRN PRN Reason: Pain, Moderate (4-6) Metoclopramide HCl (Reglan) 5 mg IV Q6H PRN PRN Reason: Nausea And Vomiting Metoprolol Tartrate (Lopressor) 5 mg IV Q6HR PRN PRN Reason: sustained HR > 140 Metoprolol Tartrate (Lopressor) 50 mg PO Q8H [facility] Miscellaneous Medication (Nf Synthroid) 62.5 mcg PO Q24H [facility] Ondansetron HCl (Zofran) 4 mg IV Q8H PRN PRN Reason: Nausea And Vomiting Paroxetine HCl (Paxil) 20 mg PO QDAY [facility] Last Admin: 07/22/18 10:54 Dose: Not Given Documented by: Rivaroxaban (Xarelto) 15 mg PO DAILY [facility]; Protocol Last Admin: 07/22/18 10:54 Dose: Not Given Documented by: Sodium Chloride (Sodium Chloride Flush Syringe 10 Ml) 10 ml IV BID [facility] Last Admin: 07/22/18 10:54 Dose: Not Given Documented by: Sodium Chloride (Sodium Chloride Flush Syringe 10 Ml) 10 ml IV PRN PRN PRN Reason: LINE FLUSH Physical Examination Vital Signs Temp Pulse Resp BP Pulse Ox 97.4 F L 75 18 115/73 97 07/18/18 13:05 07/18/18 13:05 07/18/18 13:05 07/18/18 13:05 07/18/18 13:05 General appearance: no acute distress Neck: Positive: trachea midline Cardiac: Positive: irregularly irregular Lungs: Positive: Decreased Breath Sounds Neuro: Positive: Grossly Intact Abdomen: Positive: Unremarkable Extremities: Present: +3 Edema Results 07/20/18 05:53 07/22/18 07:11 Comprehensive Metabolic Panel 07/22/18 Range/Units 07:11 Sodium 127 L (137-145) mmol/L Potassium 5.2 H D (3.6-5.0) mmol/L Chloride 95.0 L (98-107) mmol/L Carbon Dioxide 15 L (22-30) mmol/L BUN 17 (7-17) mg/dL Creatinine 1.3 H (0.7-1.2) mg/dL Glucose 94 (65-100) mg/dL Calcium 8.6 (8.4-10.2) mg/dL EKG interpretations - Telemetry EKG Rhythm: Atrial Fibrillation (Paced beats noted.) Assessment and Plan Atrial fibrillation with rapid VR.agree with Metoprolol,continue Xarelto.Patient was known to have chronic atrial fibrillation,s/p PPM. Severe LV dysfunction, new from previous echo's done in office.. Continue Metoprol,Xarelto,consider adding JENNY inhibitor. - Patient Problems (1) DL (acute kidney injury) Current Visit: Yes Status: Acute (2) Acute systolic (congestive) heart failure Current Visit: Yes Status: Acute (3) Cardiomyopathy Current Visit: Yes Status: Acute Qualifiers: Cardiomyopathy type: unspecified Qualified Code(s): I42.9 - Cardiomyopathy, unspecified (4) Generalized weakness Current Visit: Yes Status: Acute (5) Hyponatremia Current Visit: Yes Status: Acute (6) Major depression Current Visit: Yes Status: Acute Qualifiers: Major depression recurrence: recurrent Active/Remission status: currently active Major depression episode severity: moderate Qualified Code(s): F33.1 - Major depressive disorder, recurrent, moderate (7) Hyperlipidemia Current Visit: Yes Status: Chronic Qualifiers: Hyperlipidemia type: mixed hyperlipidemia Qualified Code(s): E78.2 - Mixed hyperlipidemia (8) Hypertension Current Visit: Yes Status: Chronic Qualifiers: Hypertension type: essential hypertension Qualified Code(s): I10 - Essential (primary) hypertension (9) Hypothyroidism Current Visit: Yes Status: Chronic Qualifiers: Qualified Code(s): E03.9 - Hypothyroidism, unspecified Plan to address problem: Patient's TSH was found to be elevated,being restarted on her synthroid.
--- NOTE | 2018-07-22 18:26 | Progress Note ---
Subjective - Reason for Consult Consult date: 07/22/18 Reason for consult: follow up - Chief Complaint Chief complaint: "I'm about the same." 83 year old WF seen for psychiatric evaluation. Her daughter and [id number] provided history during the initial consult. Both reports she has been declining in mental health and now physical health over the past several months. Since the loss of dog and the sudden of her daughter, depressive symptoms worsened. She acknowledges depression and has passive thoughts of . She describes herself as withdrawn. She has not showered in weeks. Her family lives close by and checks on her daily and cooks her food. Mobility has declined. Her daughter states she has given up. When she was brought to the hospital, the expectation was she would be admitted to a [facility] program. Hyponatremia and elevated TSH identified. Her daughter states all blood tests were normal several months ago. Ms. Lim states she is compliant with medication but her daughter and d-in-law state otherwise. She has been on paxil since 2010. She has a history of opioid dependence and her last dose of subutex was in 2015. She last had ambien 12/2015. No changes. Ms. Lim is looking forward to being admitted to the [facility] unit. Mental Status Exam - Vital signs Last Vital Signs Temp 97.9 F 07/22/18 12:58 Pulse 84 07/22/18 15:06 Resp 21 07/22/18 12:58 BP 97/73 07/22/18 15:06 Pulse Ox 97 07/22/18 15:06 - Exam Narrative exam: Orientation: time, place, person Affect: depressed Mood: congruent with affect Thought content: other (passive thoughts of ) Thought Process: Intact Perceptions: none Speech: normal rate and pattern Concentration: focused Motor activity: other ([place]) Level of consciousness: alert Memory: Intact Sleep Symptoms: Hypersomnia Appetite: decreased Interaction: cooperative Assessment and Plan Impression: Major depressive disorder, severe, recurrent, without psychotic features. Vegetative symptoms present and daily functioning is impaired. She is unable to care for herself. She is willing to voluntarily be admitted to a psychiatric unit. 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 paxil can contribute to hyponatremia but benefit outweighs risk dispo: transfer to [facility] program when medically cleared. Her family is supportive. psychiatry sign off Staffed with Dr. Jasper Barakat
[2018-07-23] MEDS: LOPRESSOR PO SCH ×3 (04:03→20:49)
[2018-07-23] MEDS: LEVOTHYROXINE 62.5 MCG PO SCH (05:07)
[2018-07-23] MEDS: PROVENTIL IH PRN (07:25)
[2018-07-23 09:02] LABS: Calcium 8.7 mg/dL (8.4-10.2)
--- NOTE | 2018-07-23 09:25 | Progress Note ---
Assessment and Plan Assessment and plan: 83-year-old woman with past medical history of hypothyroidism. The patient has been dealing with grief after the of a family member. The patient presents with worsening depression. She initially came to the ER hoping to be placed in geriatric psychiatric unit. However she was found to be severely hypoglycemic. Hospital course/plan Sodium was as low as 119 on admission, nephrology consult appreciated -received tolvaptan on 07/20/18, Na now improved -TSH is extremely elevated and T4 is low. Has been restarted on Synthroid. Highly doubt that she is compliant with that at home -rx UTI w abx, fosphomycin x1 given multiple allergies, Urine cx growing multiple organisms -MH consult appreciated, cont paxil for now; while Paxil can cause hyponatremia, the benefits outweighed the risk in this patient with chronic depression -Afib now in RVR, started on metoprolol, dilt held due to low BP, plan to add JENNY-I when creat is improved -cont xarelto for stroke ppx -Wean off oxygen as tolerated -management of DL per nephrology, -received lasix, lasix now held due to DL Diagnosis Severe hyponatremia Hypothyroidism symptomatic UTI Acute kidney injury due to vasomotor nephropathy major Depression with acute flair afib with RVR, Hx of failed cardioversion in 2016 SP PPM Hypercoagulable state Hx of RLE dvt 20 years ago acute on chronic systolic CHF, EF 15% hx of Rx drug dependence ( opioids, ambien and benzos), was weaned off over 5 year period in suboxone clinic, now in remission Acute hypoxic respiratory failure due to CHF exacerbation DL- vasomotor nephropathy History Interval history: Tachycardia is improved Review of systems Constitutional: No fevers, no malaise, no joint pains CVS: No chest pain, no orthopnea, no dyspnea on exertion, no pedal edema GI: No abdominal pain, no diarrhea, no vomiting, no constipation Respiratory: No shortness of breath, no wheezing, no coughing Hospitalist Physical - Physical exam Narrative exam: General.: appears sad HEENT: Moist mucous membranes, extraocular muscles intact, no lymphadenopathy Neck: supple Cardiac: S1-S2 heard Lungs: clear to auscultation bilaterally Abdomen: soft , nontender, nondistended, bowel sounds positive Extremities: no edema clubbing or cyanosis Skin: no rash or lesions Neurologic: no gross focal deficits Psych: less depressed today - Constitutional Vitals: Temp Pulse Resp BP Pulse Ox 97.5 F L 41 L 20 125/82 98 07/23/18 07:31 07/23/18 07:31 07/23/18 07:31 07/23/18 07:31 07/23/18 07:31 General appearance: Present: no acute distress Results - Labs CBC & Chem 7: 07/20/18 05:53 07/23/18 08:34 Labs: Laboratory Last Values WBC 7.3 K/mm3 (4.5-11.0) 07/20/18 05:53 RBC 3.95 M/mm3 (3.65-5.03) 07/20/18 05:53 Hgb 12.2 gm/dl (10.1-14.3) 07/20/18 05:53 Hct 39.5 % (30.3-42.9) 07/20/18 05:53 MCV 100 fl (79-97) H 07/20/18 05:53 MCH 31 pg (28-32) 07/20/18 05:53 MCHC 31 % (30-34) 07/20/18 05:53 RDW 16.4 % (13.2-15.2) H 07/20/18 05:53 Plt Count 245 K/mm3 (140-440) 07/20/18 05:53 Lymph % (Auto) Group Director Experience 07/20/18 05:53 Walsh % (Auto) Group Director Experience 07/20/18 05:53 Eos % (Auto) Group Director Experience 07/20/18 05:53 Baso % (Auto) Group Director Experience 07/20/18 05:53 Lymph # Group Director Experience 07/20/18 05:53 Walsh # Group Director Experience 07/20/18 05:53 Eos # Group Director Experience 07/20/18 05:53 Baso # Group Director Experience 07/20/18 05:53 Add Manual Diff Complete 07/20/18 05:53 Total Counted 100 07/20/18 05:53 Seg Neutrophils % Group Director Experience 07/20/18 05:53 Seg Neuts % (Manual) 83.0 % (40.0-70.0) H 07/20/18 05:53 Band Neutrophils % 0 % 07/20/18 05:53 Lymphocytes % (Manual) 13.0 % (13.4-35.0) L 07/20/18 05:53 Reactive Lymphs % (Man) 0 % 07/20/18 05:53 Monocytes % (Manual) 2.0 % (0.0-7.3) 07/20/18 05:53 Eosinophils % (Manual) 1.0 % (0.0-4.3) 07/20/18 05:53 Basophils % (Manual) 1.0 % (0.0-1.8) 07/20/18 05:53 Metamyelocytes % 0 % 07/20/18 05:53 Myelocytes % 0 % 07/20/18 05:53 Promyelocytes % 0 % 07/20/18 05:53 Blast Cells % 0 % 07/20/18 05:53 Nucleated RBC % Not Reportable 07/20/18 05:53 Seg Neutrophils # Group Director Experience 07/20/18 05:53 Seg Neutrophils # Man 6.1 K/mm3 (1.8-7.7) 07/20/18 05:53 Band Neutrophils # 0.0 K/mm3 07/20/18 05:53 Lymphocytes # (Manual) 0.9 K/mm3 (1.2-5.4) L 07/20/18 05:53 Abs React Lymphs (Man) 0.0 K/mm3 07/20/18 05:53 Monocytes # (Manual) 0.1 K/mm3 (0.0-0.8) 07/20/18 05:53 Eosinophils # (Manual) 0.1 K/mm3 (0.0-0.4) 07/20/18 05:53 Basophils # (Manual) 0.1 K/mm3 (0.0-0.1) 07/20/18 05:53 Metamyelocytes # 0.0 K/mm3 07/20/18 05:53 Myelocytes # 0.0 K/mm3 07/20/18 05:53 Promyelocytes # 0.0 K/mm3 07/20/18 05:53 Blast Cells # 0.0 K/mm3 07/20/18 05:53 WBC Morphology Not Reportable 07/20/18 05:53 Hypersegmented Neuts Not Reportable 07/20/18 05:53 Hyposegmented Neuts Not Reportable 07/20/18 05:53 Hypogranular Neuts Not Reportable 07/20/18 05:53 Smudge Cells Not Reportable 07/20/18 05:53 Toxic Granulation Not Reportable 07/20/18 05:53 Toxic Vacuolation Not Reportable 07/20/18 05:53 Dohle Bodies Not Reportable 07/20/18 05:53 Pelger-Huet Anomaly Not Reportable 07/20/18 05:53 Barbi Rods Not Reportable 07/20/18 05:53 Platelet Estimate Consistent w auto 07/20/18 05:53 Clumped Platelets Not Reportable 07/20/18 05:53 Plt Clumps, EDTA Not Reportable 07/20/18 05:53 Large Platelets Not Reportable 07/20/18 05:53 Giant Platelets Not Reportable 07/20/18 05:53 Platelet Satelliting Not Reportable 07/20/18 05:53 Plt Morphology Comment Not Reportable 07/20/18 05:53 RBC Morphology Not Reportable 07/20/18 05:53 Dimorphic RBCs Not Reportable 07/20/18 05:53 Polychromasia Not Reportable 07/20/18 05:53 Hypochromasia Few 07/20/18 05:53 Poikilocytosis 1+ 07/20/18 05:53 Anisocytosis 1+ 07/20/18 05:53 Microcytosis Few 07/20/18 05:53 Macrocytosis Not Reportable 07/20/18 05:53 Spherocytes Not Reportable 07/20/18 05:53 Pappenheimer Bodies Not Reportable 07/20/18 05:53 Sickle Cells Not Reportable 07/20/18 05:53 Target Cells Rare 07/20/18 05:53 Tear Drop Cells Not Reportable 07/20/18 05:53 Ovalocytes Rare 07/20/18 05:53 Helmet Cells Not Reportable 07/20/18 05:53 [place] Bodies Not Reportable 07/20/18 05:53 [place] Rings Not Reportable 07/20/18 05:53 [place] Cells Not Reportable 07/20/18 05:53 Bite Cells Not Reportable 07/20/18 05:53 Crenated Cell Not Reportable 07/20/18 05:53 Elliptocytes Not Reportable 07/20/18 05:53 Acanthocytes (Spur) Not Reportable 07/20/18 05:53 Rouleaux Not Reportable 07/20/18 05:53 Hemoglobin C Crystals Not Reportable 07/20/18 05:53 Schistocytes Not Reportable 07/20/18 05:53 Malaria parasites Not Reportable 07/20/18 05:53 Chao Bodies Not Reportable 07/20/18 05:53 Hem Pathologist Commnt No 07/20/18 05:53 Sodium 127 mmol/L (137-145) L 07/23/18 08:34 Potassium 4.4 mmol/L (3.6-5.0) 07/23/18 08:34 Chloride 94.4 mmol/L (98-107) L 07/23/18 08:34 Carbon Dioxide 17 mmol/L (22-30) L 07/23/18 08:34 Anion Gap 20 mmol/L 07/23/18 08:34 BUN 22 mg/dL (7-17) H 07/23/18 08:34 Creatinine 2.2 mg/dL (0.7-1.2) H D 07/23/18 08:34 Estimated GFR 21 ml/min 07/23/18 08:34 BUN/Creatinine Ratio 10 % 07/23/18 08:34 Glucose 106 mg/dL (65-100) H 07/23/18 08:34 Hemoglobin A1c 6.2 % (4-6) H 07/18/18 13:14 Osmolality 268 Mosm/kg 07/21/18 05:33 Calcium 8.7 mg/dL (8.4-10.2) 07/23/18 08:34 Total Bilirubin 0.90 mg/dL (0.1-1.2) 07/20/18 06:42 Direct Bilirubin 0.6 mg/dL (0-0.2) H 07/18/18 13:14 Indirect Bilirubin 0.5 mg/dL 07/18/18 13:14 AST 56 units/L (5-40) H 07/20/18 06:42 ALT 52 units/L (7-56) 07/20/18 06:42 Alkaline Phosphatase 83 units/L (35-129) 07/20/18 06:42 NT-Pro-B Natriuret Pep 52249 pg/mL (0-900) H 07/18/18 13:14 Total Protein 5.3 g/dL (6.3-8.2) L 07/20/18 06:42 Albumin 2.8 g/dL (3.9-5) L 07/20/18 06:42 Albumin/Globulin Ratio 1.1 % 07/20/18 06:42 TSH 26.270 mlU/mL (0.270-4.200) H 07/19/18 14:38 Free T4 0.67 ng/dL (0.76-1.46) L 07/19/18 14:38 Thyroxine (T4) 3.4 ug/dL (4.0-12.0) L 07/19/18 14:38 Urine Color [place] (Yellow) 07/18/18 14:30 Urine Turbidity Clear (Clear) 07/18/18 14:30 Urine pH 5.0 (5.0-7.0) 07/18/18 14:30 Ur Specific [place] 1.017 (1.003-1.030) 07/18/18 14:30 Urine Protein 30 mg/dl mg/dL (Negative) 07/18/18 14:30 Urine Glucose (UA) Neg mg/dL (Negative) 07/18/18 14:30 Urine Ketones Tr mg/dL (Negative) 07/18/18 14:30 Urine Blood Sm (Negative) 07/18/18 14:30 Urine Nitrite Neg (Negative) 07/18/18 14:30 Urine Bilirubin Neg (Negative) 07/18/18 14:30 Urine Urobilinogen 4.0 mg/dL (<2.0) 07/18/18 14:30 Ur Leukocyte Esterase Tr (Negative) 07/18/18 14:30 Urine WBC (Auto) 30.0 /HPF (0.0-6.0) H 07/18/18 14:30 Urine RBC (Auto) 3.0 /HPF (0.0-6.0) 07/18/18 14:30 U Epithel Cells (Auto) < 1.0 /HPF (0-13.0) 07/18/18 14:30 Urine Bacteria (Auto) 1+ /HPF (Negative) 07/18/18 14:30 Hyaline Casts 1 /LPF 07/18/18 14:30 Urine Mucus Few /HPF 07/18/18 14:30 Urine Osmolality 492 Mosm/kg 07/20/18 05:40 Urine Sodium 10 mmol/L 07/20/18 05:40 Urine Potassium 12.30 mmol/L 07/20/18 05:40 Urine Chloride 17.3 mmolL (110-250) L 07/20/18 05:40 Salicylates < 0.3 mg/dL (2.8-20.0) L 07/18/18 13:14 Urine Opiates Screen Presumptive negative 07/18/18 14:30 Urine Methadone Screen Presumptive negative 07/18/18 14:30 Acetaminophen 5.4 ug/mL (10.0-30.0) L 07/18/18 13:14 Ur Barbiturates Screen Presumptive negative 07/18/18 14:30 Ur Phencyclidine Scrn Presumptive negative 07/18/18 14:30 Ur Amphetamines Screen Presumptive negative 07/18/18 14:30 U Benzodiazepines Scrn Presumptive negative 07/18/18 14:30 Urine Cocaine Screen Presumptive negative 07/18/18 14:30 U Marijuana (THC) Screen Presumptive negative 07/18/18 14:30 Drugs of Abuse Note Disclamer 07/18/18 14:30 Plasma/Serum Alcohol < 0.01 % (0-0.07) 07/18/18 13:14
--- NOTE | 2018-07-23 11:00 | Progress Note ---
Assessment and Plan - Patient Problems (1) Hyponatremia Current Visit: Yes Status: Acute Plan to address problem: Na stable at 127. cont fluid restriction to 1.5L/day. cont synthroid. (2) Hypothyroidism Current Visit: Yes Status: Chronic Qualifiers: Qualified Code(s): E03.9 - Hypothyroidism, unspecified Plan to address problem: This may be leading to impaired free water excretion and increased ADH, ultimately contributing to her hyponatremia. Patient started on synthroid. (3) Acute systolic (congestive) heart failure Current Visit: Yes Status: Acute Plan to address problem: cont fluid restriction to 1.5/day. lasix held given declining eGFR (4) Acute and chronic respiratory failure with hypoxia Current Visit: Yes Status: Acute Plan to address problem: Overall respiratory status is stable on 2 L of O2 via nasal cannula. avoid IVF (5) DL (acute kidney injury) Current Visit: Yes Status: Acute Plan to address problem: Renal worsening due to diuretic therapy, lasix on hold (6) Depression Current Visit: Yes Status: Chronic Qualifiers: Depression Type: unspecified Qualified Code(s): F32.9 - Major depressive disorder, single episode, unspecified Plan to address problem: Further recommendations per psychiatry. Subjective Date of service: 07/23/18 Principal diagnosis: hyponatremia Interval history: pt awake, alert, in no acute respiratory distress, lasix stopped this AM due to worsening renal function. Objective - Vital Signs Vital signs: Vital Signs - 12hr 07/23/18 07/23/18 07/23/18 02:07 04:03 07:24 Temperature 98.3 F Pulse Rate 90 Pulse Rate [ Posterior Bilateral Throughout] Respiratory 20 Rate Respiratory Rate [Posterior Bilateral Throughout] Blood Pressure 102/64 102/64 O2 Sat by Pulse 93 Oximetry 07/23/18 07/23/18 07/23/18 07:25 07:31 07:33 Temperature 97.5 F L Pulse Rate 41 L Pulse Rate [ 80 85 Posterior Bilateral Throughout] Respiratory 20 Rate Respiratory 20 20 Rate [Posterior Bilateral Throughout] Blood Pressure 125/82 O2 Sat by Pulse 98 Oximetry - General Appearance General appearance: well-developed, well-nourished, appears stated age, obese EENT: ATNC, PERRL, mucous membranes moist Neck: no JVD Respiratory: Present: Decreased Breath Sounds Cardiology: regular, S1S2 Gastrointestinal: normoactive bowel sounds, obese Integumentary: no rash, other (no pitting edema ) Neurologic: no focal deficit, alert and oriented x3, strength 5/5, CN 3-12 intact Psychiatric: mood/affect appropriate, cooperative - Lab 07/20/18 05:53 07/23/18 08:34 Most recent lab results Calcium 8.7 mg/dL (8.4-10.2) 07/23/18 08:34 Urine Sodium 10 mmol/L 07/20/18 05:40 Medications & Allergies - Medications Allergies/Adverse Reactions: Allergies cefaclor [From Ceclor] Allergy (Verified 07/18/18 13:05) Unknown ciprofloxacin [From Cipro] Allergy (Verified 07/18/18 13:05) Unknown diphenhydramine [From Benadryl] Allergy (Verified 07/18/18 13:05) Unknown iodine Allergy (Verified 07/18/18 13:05) Unknown levofloxacin [From Levaquin] Allergy (Verified 07/18/18 13:05) Unknown moxifloxacin [From Avelox] Allergy (Verified 07/18/18 13:05) Unknown nitrofurantoin [From Macrodantin] Allergy (Verified 07/18/18 13:05) Unknown Penicillins Allergy (Verified 07/18/18 13:05) Unknown sulfamethoxazole [From Septra] Allergy (Verified 07/18/18 13:05) Unknown tetracycline Allergy (Verified 07/18/18 13:05) Unknown trimethoprim [From Septra] Allergy (Verified 07/18/18 13:05) Unknown mycins Allergy (Uncoded 07/18/18 13:05) Unknown Home Medications: Home Medications Medication Instructions Recorded Confirmed Last Taken Type Benzonatate [Tessalon Perle] 100 mg PO PRN 07/18/18 07/18/18 Unknown History Diltiazem HCl [Diltiazem 24Hr ER] 240 mg PO QAM 07/18/18 07/18/18 Unknown History Levothyroxine [Synthroid] 125 mcg PO QAM 07/18/18 07/18/18 Unknown History Loperamide 2 mg PO DAILY 07/18/18 07/18/18 Unknown History Metoprolol SUCCINATE ER TAB 25 mg PO QPCHS 07/18/18 07/18/18 Unknown History PARoxetine [Paxil] 20 mg PO DAILY 07/18/18 07/18/18 Unknown History Rivaroxaban [Xarelto] 15 mg PO DAILY 07/18/18 07/18/18 Unknown History Active Medications: Generic Name Dose Route Start Last Admin Trade Name Freq PRN Reason Stop Dose Admin Acetaminophen 650 mg 07/19/18 00:20 Tylenol PO Q4H PRN Pain MILD(1-3)/Fever >100.5/BEASLEY Albuterol 2.5 mg 07/20/18 09:46 07/23/18 07:25 Proventil IH 2.5 mg Q4HRT PRN Administration Shortness Of Breath Famotidine 20 mg 07/19/18 10:00 07/22/18 10:54 Pepcid PO Not Given QAM KIAN Hydromorphone HCl 0.25 mg 07/19/18 00:20 Dilaudid IV Q3H PRN Pain, Moderate (4-6) Metoclopramide HCl 5 mg 07/19/18 00:20 Reglan IV Q6H PRN Nausea And Vomiting Metoprolol Tartrate 5 mg 07/21/18 10:33 Lopressor IV Q6HR PRN sustained HR > 140 Metoprolol Tartrate 50 mg 07/22/18 11:00 07/23/18 04:03 Lopressor PO 50 mg Q8H KIAN Administration Miscellaneous Medication 62.5 mcg 07/23/18 06:00 07/23/18 05:07 Nf Synthroid PO 62.5 mcg Q24H KIAN Administration Ondansetron HCl 4 mg 07/19/18 00:20 Zofran IV Q8H PRN Nausea And Vomiting Paroxetine HCl 20 mg 07/21/18 10:00 07/22/18 10:54 Paxil PO Not Given QDAY KIAN Rivaroxaban 15 mg 07/20/18 10:00 07/22/18 10:54 Xarelto PO Not Given DAILY [facility] Protocol Sodium Chloride 10 ml 07/19/18 10:00 07/22/18 21:07 Sodium Chloride Flush Syringe 10 Ml IV 10 ml BID KIAN Administration Sodium Chloride 10 ml 07/19/18 00:20 Sodium Chloride Flush Syringe 10 Ml IV PRN PRN LINE FLUSH
--- NOTE | 2018-07-23 11:16 | Progress Note ---
Assessment and Plan Pt is 83 YO female with past medical history of anxiety, depression, chronic atrial fibrillation, anticoagulated with Xarelto, LBBB, SSS, PPM in situ, HTN, HLP, hypothyroidism, colon CA, psych d/o, ? medical noncompliance. She is followed in our office by Dr. Freitas. The patient has been dealing with grief after the of a family member. The patient presented with worsening depression and initially came to the ER hoping to be placed in geriatric psychiatric unit. Following admission, she was found to have heart failure and AFib with RVR and thus cardiology was consulted. She was in AFib with CVR overnight and states she is feeling much better today. She is noted to have severe cardiomyopathy which appears to be new. Echo reviewed - EF 15-20%, severe 4-chamber dilated CMP, mod to severe MR, mod TR, pacemaker wire in right heart chambers. Echo done 10/2015 showed EF 50-55%. Cardiac PET done 04/2017 was negative for ischemia, normal LV systolic function. Lasix held in setting of worsening DL. Nephrology following. Cont lopressor and titrate as BPs permit. Pt was on Cardizem CD 240mg daily at home. No ACEI/ARB at this time in setting of renal insufficiency and borderline BPs. Consider ischemic evaluation (lexiscan MPI stress test) to r/o ischemic CMP once medically stabilized. Cont to monitor on telemetry. The patient has been seen in conjunction with Dr. Callahan who agrees with the assessment and plan of care. - Patient Problems (1) Chronic atrial fibrillation with RVR Current Visit: Yes Status: Acute (2) Acute HFrEF (heart failure with reduced ejection fraction) Current Visit: Yes Status: Acute (3) Cardiomyopathy Current Visit: Yes Status: Chronic Qualifiers: Cardiomyopathy type: unspecified Qualified Code(s): I42.9 - Cardiomyopathy, unspecified (4) DL (acute kidney injury) Current Visit: Yes Status: Acute (5) UTI (urinary tract infection) Current Visit: Yes Status: Acute Qualifiers: Urinary tract infection type: acute cystitis Hematuria presence: without hematuria Qualified Code(s): N30.00 - Acute cystitis without hematuria (6) Hyponatremia Current Visit: Yes Status: Acute (7) Depression Current Visit: Yes Status: Chronic Qualifiers: Depression Type: unspecified Qualified Code(s): F32.9 - Major depressive disorder, single episode, unspecified (8) Hyperlipidemia Current Visit: Yes Status: Chronic Qualifiers: Hyperlipidemia type: mixed hyperlipidemia Qualified Code(s): E78.2 - Mixed hyperlipidemia (9) Hypertension Current Visit: Yes Status: Chronic Qualifiers: Hypertension type: essential hypertension Qualified Code(s): I10 - Essenti al (primary) hypertension (10) Hypothyroidism Current Visit: Yes Status: Chronic Qualifiers: Qualified Code(s): E03.9 - Hypothyroidism, unspecified (11) Cardiac pacemaker in situ Current Visit: Yes Status: Chronic Subjective Date of service: 07/23/18 Principal diagnosis: hyponatremia Interval history: pt resting in bed, states she is feeling better today. tele reviewed - in AFib with CVR overnight. Objective Last Vital Signs Temp 97.5 F L 07/23/18 07:31 Pulse 85 07/23/18 07:33 Resp 20 07/23/18 07:33 BP 125/82 07/23/18 07:31 Pulse Ox 98 07/23/18 07:31 - Physical Examination General: No Apparent Distress HEENT: Positive: PERRL Neck: Positive: trachea midline Cardiac: Positive: irregularly irregular, S1/S2 Lungs: Positive: Decreased Breath Sounds Neuro: Positive: Grossly Intact Abdomen: Positive: Unremarkable Extremities: Present: +3 Edema - Labs and Meds Comprehensive Metabolic Panel 07/23/18 Range/Units 08:34 Sodium 127 L (137-145) mmol/L Potassium 4.4 (3.6-5.0) mmol/L Chloride 94.4 L (98-107) mmol/L Carbon Dioxide 17 L (22-30) mmol/L BUN 22 H (7-17) mg/dL Creatinine 2.2 H D (0.7-1.2) mg/dL Glucose 106 H (65-100) mg/dL Calcium 8.7 (8.4-10.2) mg/dL - Allied health notes Allied health notes reviewed: nursing
[2018-07-23] MEDS: XARELTO PO SCH (11:23)
[2018-07-23] MEDS: PEPCID PO SCH (11:24)
[2018-07-23] MEDS: PAXIL PO SCH (11:24)
[2018-07-23] MEDS: SODIUM CHLORIDE FLUSH SYRINGE 10 ML IV SCH ×2 (11:25→21:03)
[2018-07-24] MEDS: LOPRESSOR PO SCH ×3 (03:10→20:14)
[2018-07-24] MEDS: LEVOTHYROXINE 62.5 MCG PO SCH (05:50)
--- NOTE | 2018-07-24 09:51 | Progress Note ---
Assessment and Plan Lasix held in setting of worsening DL. Renal indices continue to trend upwards. Nephrology following. Cont lopressor and titrate as BPs permit. Pt was on Cardizem CD 240mg daily at home. No ACEI/ARB at this time in setting of renal insufficiency and borderline BPs. Consider ischemic evaluation (lexiscan MPI stress test) to r/o ischemic CMP once medically stabilized. Cont to monitor on telemetry. The patient has been seen in conjunction with Dr. Callahan who agrees with the assessment and plan of care. - Patient Problems (1) Chronic atrial fibrillation with RVR Current Visit: Yes Status: Acute (2) Acute HFrEF (heart failure with reduced ejection fraction) Current Visit: Yes Status: Acute (3) Cardiomyopathy Current Visit: Yes Status: Chronic Qualifiers: Cardiomyopathy type: unspecified Qualified Code(s): I42.9 - Cardiomyopathy, unspecified (4) DL (acute kidney injury) Current Visit: Yes Status: Acute (5) UTI (urinary tract infection) Current Visit: Yes Status: Acute Qualifiers: Urinary tract infection type: acute cystitis Hematuria presence: without hematuria Qualified Code(s): N30.00 - Acute cystitis without hematuria (6) Hyponatremia Current Visit: Yes Status: Acute (7) Depression Current Visit: Yes Status: Chronic Qualifiers: Depression Type: unspecified Qualified Code(s): F32.9 - Major depressive disorder, single episode, unspecified (8) Hyperlipidemia Current Visit: Yes Status: Chronic Qualifiers: Hyperlipidemia type: mixed hyperlipidemia Qualified Code(s): E78.2 - Mixed hyperlipidemia (9) Hypertension Current Visit: Yes Status: Chronic Qualifiers: Hypertension type: essential hypertension Qualified Code(s): I10 - Essential (primary) hypertension (10) Hypothyroidism Current Visit: Yes Status: Chronic Qualifiers: Qualified Code(s): E03.9 - Hypothyroidism, unspecified (11) Cardiac pacemaker in situ Current Visit: Yes Status: Chronic Subjective Date of service: 07/24/18 Principal diagnosis: HF Interval history: pt resting in bed, states she is feeling well today. tele reviewed - in AFib with CVR overnight. Objective Last Vital Signs Temp 97.8 F 07/24/18 08:06 Pulse 87 07/24/18 08:06 Resp 20 07/24/18 08:06 BP 113/90 07/24/18 08:06 Pulse Ox 100 07/24/18 08:06 - Physical Examination General: No Apparent Distress HEENT: Positive: PERRL Neck: Positive: trachea midline Cardiac: Positive: irregularly irregular, S1/S2 Lungs: Positive: Decreased Breath Sounds Neuro: Positive: Grossly Intact Abdomen: Positive: Unremarkable Extremities: Present: +3 Edema - Labs and Meds Comprehensive Metabolic Panel 07/24/18 Range/Units 05:19 Sodium 124 L (137-145) mmol/L Potassium 4.9 (3.6-5.0) mmol/L Chloride 97.0 L (98-107) mmol/L Carbon Dioxide 11 L (22-30) mmol/L BUN 28 H (7-17) mg/dL Creatinine 2.7 H (0.7-1.2) mg/dL Glucose 84 (65-100) mg/dL Calcium 9.0 (8.4-10.2) mg/dL - Imaging and Cardiology EKG: report reviewed, image reviewed Echo: report reviewed (Echo reviewed - EF 15-20%, severe 4-chamber dilated CMP, mod to severe MR, mod TR, pacemaker wire in right heart chambers. Echo done 10/2015 showed EF 50-55%. Cardiac PET done 04/2017 was negative for ischemia, normal LV systolic function. ) - Allied health notes Allied health notes reviewed: nursing
[2018-07-24] MEDS: PEPCID PO SCH (10:09)
[2018-07-24] MEDS: XARELTO PO SCH (10:09)
[2018-07-24] MEDS: PAXIL PO SCH (10:09)
[2018-07-24] MEDS: SODIUM CHLORIDE FLUSH SYRINGE 10 ML IV SCH ×2 (10:13→21:09)
[2018-07-24] MEDS: SODIUM BICARBONATE PO SCH ×2 (10:13→21:09)
--- NOTE | 2018-07-24 10:13 | Progress Note ---
Assessment and Plan - Patient Problems (1) DL (acute kidney injury) Current Visit: Yes Status: Acute Plan to address problem: Renal worsening likely due to acute cardiorenal syndrome, ATN in the setting of hypotensive episodes cannot be ruled out. recommend trial with inotropic support if cardiology agrees. avoid nephrotoxins, NSAIDs, IV contrast (2) Hyponatremia Current Visit: Yes Status: Acute Plan to address problem: Na trending down again to 124. cont fluid restriction to 1.5L/day. cont synthroid. will dose with another tolvaptan 15mg x 1 dose (3) Hypothyroidism Current Visit: Yes Status: Chronic Qualifiers: Qualified Code(s): E03.9 - Hypothyroidism, unspecified Plan to address problem: Cont synthroid. (4) Acute systolic (congestive) heart failure Current Visit: Yes Status: Acute Plan to address problem: cont fluid restriction to 1.5/day. lasix held given declining eGFR. pt with hypotensive episodes and worsening renal function, likely secondary to cardiorenal syndrome. recommend trial with inotropic support if cardiology agrees. (5) Acute and chronic respiratory failure with hypoxia Current Visit: Yes Status: Acute Plan to address problem: Overall respiratory status is stable on 2 L of O2 via nasal cannula. avoid IVF (6) Depression Current Visit: Yes Status: Chronic Qualifiers: Depression Type: unspecified Qualified Code(s): F32.9 - Major depressive disorder, single episode, unspecified Plan to address problem: Further recommendations per psychiatry. Subjective Date of service: 07/24/18 Principal diagnosis: HF Interval history: pt awake, alert, in no acute respiratory distress, worsening renal function noted even after lasix was stopped. pt with A-fib w/ RVR overnight, also with hypotensive episodes. Objective - Vital Signs Vital signs: Vital Signs - 12hr 07/24/18 07/24/18 07/24/18 02:15 03:10 06:10 Temperature 98.5 F Pulse Rate 85 85 Respiratory 20 Rate Blood Pressure 80/42 80/42 O2 Sat by Pulse Oximetry 07/24/18 08:06 Temperature 97.8 F Pulse Rate 87 Respiratory 20 Rate Blood Pressure 113/90 O2 Sat by Pulse 100 Oximetry - General Appearance General appearance: well-developed, appears stated age, chronically ill EENT: ATNC, PERRL, mucous membranes moist Neck: no JVD Respiratory: Present: Decreased Breath Sounds Cardiology: regular, S1S2 Gastrointestinal: normoactive bowel sounds, obese Integumentary: no rash, other (no pitting edema ) Neurologic: no focal deficit, strength 5/5, CN 3-12 intact Psychiatric: mood/affect appropriate, cooperative - Lab 07/20/18 05:53 07/24/18 05:19 Most recent lab results Calcium 9.0 mg/dL (8.4-10.2) 07/24/18 05:19 Urine Sodium 10 mmol/L 07/20/18 05:40 Medications & Allergies - Medications Allergies/Adverse Reactions: Allergies cefaclor [From Ceclor] Allergy (Verified 07/18/18 13:05) Unknown ciprofloxacin [From Cipro] Allergy (Verified 07/18/18 13:05) Unknown diphenhydramine [From Benadryl] Allergy (Verified 07/18/18 13:05) Unknown iodine Allergy (Verified 07/18/18 13:05) Unknown levofloxacin [From Levaquin] Allergy (Verified 07/18/18 13:05) Unknown moxifloxacin [From Avelox] Allergy (Verified 07/18/18 13:05) Unknown nitrofurantoin [From Macrodantin] Allergy (Verified 07/18/18 13:05) Unknown Penicillins Allergy (Verified 07/18/18 13:05) Unknown sulfamethoxazole [From Septra] Allergy (Verified 07/18/18 13:05) Unknown tetracycline Allergy (Verified 07/18/18 13:05) Unknown trimethoprim [From Septra] Allergy (Verified 07/18/18 13:05) Unknown mycins Allergy (Uncoded 07/18/18 13:05) Unknown Home Medications: Home Medications Medication Instructions Recorded Confirmed Last Taken Type Benzonatate [Tessalon Perle] 100 mg PO PRN 07/18/18 07/18/18 Unknown History Diltiazem HCl [Diltiazem 24Hr ER] 240 mg PO QAM 07/18/18 07/18/18 Unknown Hist ory Levothyroxine [Synthroid] 125 mcg PO QAM 07/18/18 07/18/18 Unknown History Loperamide 2 mg PO DAILY 07/18/18 07/18/18 Unknown History Metoprolol SUCCINATE ER TAB 25 mg PO QPCHS 07/18/18 07/18/18 Unknown History PARoxetine [Paxil] 20 mg PO DAILY 07/18/18 07/18/18 Unknown History Rivaroxaban [Xarelto] 15 mg PO DAILY 07/18/18 07/18/18 Unknown History Active Medications: Generic Name Dose Route Start Last Admin Trade Name Freq PRN Reason Stop Dose Admin Acetaminophen 650 mg 07/19/18 00:20 Tylenol PO Q4H PRN Pain MILD(1-3)/Fever >100.5/BEASLEY Albuterol 2.5 mg 07/20/18 09:46 07/23/18 07:25 Proventil IH 2.5 mg Q4HRT PRN Administration Shortness Of Breath Famotidine 20 mg 07/19/18 10:00 07/23/18 11:24 Pepcid PO 20 mg QAM KIAN Administration Hydromorphone HCl 0.25 mg 07/19/18 00:20 Dilaudid IV Q3H PRN Pain, Moderate (4-6) Metoclopramide HCl 5 mg 07/19/18 00:20 Reglan IV Q6H PRN Nausea And Vomiting Metoprolol Tartrate 50 mg 07/22/18 11:00 07/24/18 03:10 Lopressor PO Not Given Q8H KIAN Miscellaneous Medication 62.5 mcg 07/23/18 06:00 07/24/18 05:50 Nf Synthroid PO 62.5 mcg Q24H KIAN Administration Ondansetron HCl 4 mg 07/19/18 00:20 Zofran IV Q8H PRN Nausea And Vomiting Paroxetine HCl 20 mg 07/21/18 10:00 07/23/18 11:24 Paxil PO 20 mg QDAY KIAN Administration Rivaroxaban 15 mg 07/20/18 10:00 07/23/18 11:23 Xarelto PO 15 mg DAILY KIAN Administration Protocol Sodium Bicarbonate 1,300 mg 07/24/18 11:00 Sodium Bicarbonate PO BID KIAN Sodium Chloride 10 ml 07/19/18 10:00 07/23/18 21:03 Sodium Chloride Flush Syringe 10 Ml IV 10 ml BID KIAN Administration Sodium Chloride 10 ml 07/19/18 00:20 Sodium Chloride Flush Syringe 10 Ml IV PRN PRN LINE FLUSH
--- NOTE | 2018-07-24 14:45 | Progress Note ---
Assessment and Plan Assessment and plan: 83-year-old woman with past medical history of hypothyroidism. The patient has been dealing with grief after the of a family member. The patient presents with worsening depression. She initially came to the ER hoping to be placed in geriatric psychiatric unit. However she was found to be severely hypoglycemic. Hospital course/plan Sodium was as low as 119 on admission, nephrology consult appreciated -received tolvaptan on 07/20/18, to get another dose today -TSH is extremely elevated and T4 is low. Has been restarted on Synthroid. Highly doubt that she is compliant with that at home, she had normal tfts in May -rx UTI w abx, fosphomycin x1 given multiple allergies, Urine cx growing multiple organisms -MH consult appreciated, cont paxil for now; while Paxil can cause hyponatremia, the benefits outweighed the risk in this patient with chronic depression -Afib wRVR, started on metoprolol, dilt held due to low BP, plan to add JENNY-I when creat is improved -cont xarelto for stroke ppx -Wean off oxygen as tolerated --she got lasix, Cr went up, dc lasix since 07/23 -management of DL per nephrology, -received lasix, lasix now held due to DL, worsening metabolic acidosis, added NaHCO3 tabs, cont water restriction Diagnosis Severe hyponatremia metabolic acidosis Hypothyroidism symptomatic UTI Acute kidney injury due to vasomotor nephropathy major Depression with acute flare afib with RVR, Hx of failed cardioversion in 2016 SP PPM Hypercoagulable state Hx of RLE dvt 20 years ago acute on chronic systolic CHF, EF 15% hx of Rx drug dependence ( opioids, ambien and benzos), was weaned off over 5 year period in suboxone clinic, now in remission Acute hypoxic respiratory failure due to CHF exacerbation DL- vasomotor nephropathy History Interval history: Tachycardia is improved Review of systems Constitutional: No fevers, no malaise, no joint pains CVS: No chest pain, no orthopnea, no dyspnea on exertion, no pedal edema GI: No abdominal pain, no diarrhea, no vomiting, no constipation Respiratory: No shortness of breath, no wheezing, no coughing Hospitalist Physical - Physical exam Narrative exam: General.: appears sad HEENT: Moist mucous membranes, extraocular muscles intact, no lymphadenopathy Neck: supple Cardiac: S1-S2 heard Lungs: clear to auscultation bilaterally Abdomen: soft , nontender, nondistended, bowel sounds positive Extremities: no edema clubbing or cyanosis Skin: no rash or lesions Neurologic: no gross focal deficits Psych: less depressed today - Constitutional Vitals: Temp Pulse Resp BP Pulse Ox 97.2 F L 91 H 20 102/70 98 07/24/18 13:58 07/24/18 13:58 07/24/18 13:58 07/24/18 13:58 07/24/18 13:58 General appearance: Present: no acute distress Results - Labs CBC & Chem 7: 07/20/18 05:53 07/24/18 05:19 Labs: Laboratory Last Values WBC 7.3 K/mm3 (4.5-11.0) 07/20/18 05:53 RBC 3.95 M/mm3 (3.65-5.03) 07/20/18 05:53 Hgb 12.2 gm/dl (10.1-14.3) 07/20/18 05:53 Hct 39.5 % (30.3-42.9) 07/20/18 05:53 MCV 100 fl (79-97) H 07/20/18 05:53 MCH 31 pg (28-32) 07/20/18 05:53 MCHC 31 % (30-34) 07/20/18 05:53 RDW 16.4 % (13.2-15.2) H 07/20/18 05:53 Plt Count 245 K/mm3 (140-440) 07/20/18 05:53 Lymph % (Auto) Entry Level Software Engineer 07/20/18 05:53 Guthrie % (Auto) Entry Level Software Engineer 07/20/18 05:53 Eos % (Auto) Entry Level Software Engineer 07/20/18 05:53 Baso % (Auto) Entry Level Software Engineer 07/20/18 05:53 Lymph # Entry Level Software Engineer 07/20/18 05:53 Guthrie # Entry Level Software Engineer 07/20/18 05:53 Eos # Entry Level Software Engineer 07/20/18 05:53 Baso # Entry Level Software Engineer 07/20/18 05:53 Add Manual Diff Complete 07/20/18 05:53 Total Counted 100 07/20/18 05:53 Seg Neutrophils % Entry Level Software Engineer 07/20/18 05:53 Seg Neuts % (Manual) 83.0 % (40.0-70.0) H 07/20/18 05:53 Band Neutrophils % 0 % 07/20/18 05:53 Lymphocytes % (Manual) 13.0 % (13.4-35.0) L 07/20/18 05:53 Reactive Lymphs % (Man) 0 % 07/20/18 05:53 Monocytes % (Manual) 2.0 % (0.0-7.3) 07/20/18 05:53 Eosinophils % (Manual) 1.0 % (0.0-4.3) 07/20/18 05:53 Basophils % (Manual) 1.0 % (0.0-1.8) 07/20/18 05:53 Metamyelocytes % 0 % 07/20/18 05:53 Myelocytes % 0 % 07/20/18 05:53 Promyelocytes % 0 % 07/20/18 05:53 Blast Cells % 0 % 07/20/18 05:53 Nucleated RBC % Not Reportable 07/20/18 05:53 Seg Neutrophils # Entry Level Software Engineer 07/20/18 05:53 Seg Neutrophils # Man 6.1 K/mm3 (1.8-7.7) 07/20/18 05:53 Band Neutrophils # 0.0 K/mm3 07/20/18 05:53 Lymphocytes # (Manual) 0.9 K/mm3 (1.2-5.4) L 07/20/18 05:53 Abs React Lymphs (Man) 0.0 K/mm3 07/20/18 05:53 Monocytes # (Manual) 0.1 K/mm3 (0.0-0.8) 07/20/18 05:53 Eosinophils # (Manual) 0.1 K/mm3 (0.0-0.4) 07/20/18 05:53 Basophils # (Manual) 0.1 K/mm3 (0.0-0.1) 07/20/18 05:53 Metamyelocytes # 0.0 K/mm3 07/20/18 05:53 Myelocytes # 0.0 K/mm3 07/20/18 05:53 Promyelocytes # 0.0 K/mm3 07/20/18 05:53 Blast Cells # 0.0 K/mm3 07/20/18 05:53 WBC Morphology Not Reportable 07/20/18 05:53 Hypersegmented Neuts Not Reportable 07/20/18 05:53 Hyposegmented Neuts Not Reportable 07/20/18 05:53 Hypogranular Neuts Not Reportable 07/20/18 05:53 Smudge Cells Not Reportable 07/20/18 05:53 Toxic Granulation Not Reportable 07/20/18 05:53 Toxic Vacuolation Not Reportable 07/20/18 05:53 Dohle Bodies Not Reportable 07/20/18 05:53 Pelger-Huet Anomaly Not Reportable 07/20/18 05:53 Barbi Rods Not Reportable 07/20/18 05:53 Platelet Estimate Consistent w auto 07/20/18 05:53 Clumped Platelets Not Reportable 07/20/18 05:53 Plt Clumps, EDTA Not Reportable 07/20/18 05:53 Large Platelets Not Reportable 07/20/18 05:53 Giant Platelets Not Reportable 07/20/18 05:53 Platelet Satelliting Not Reportable 07/20/18 05:53 Plt Morphology Comment Not Reportable 07/20/18 05:53 RBC Morphology Not Reportable 07/20/18 05:53 Dimorphic RBCs Not Reportable 07/20/18 05:53 Polychromasia Not Reportable 07/20/18 05:53 Hypochromasia Few 07/20/18 05:53 Poikilocytosis 1+ 07/20/18 05:53 Anisocytosis 1+ 07/20/18 05:53 Microcytosis Few 07/20/18 05:53 Macrocytosis Not Reportable 07/20/18 05:53 Spherocytes Not Reportable 07/20/18 05:53 Pappenheimer Bodies Not Reportable 07/20/18 05:53 Sickle Cells Not Reportable 07/20/18 05:53 Target Cells Rare 07/20/18 05:53 Tear Drop Cells Not Reportable 07/20/18 05:53 Ovalocytes Rare 07/20/18 05:53 Helmet Cells Not Reportable 07/20/18 05:53 [place] Bodies Not Reportable 07/20/18 05:53 [place]on Rings Not Reportable 07/20/18 05:53 Nora Cells Not Reportable 07/20/18 05:53 Bite Cells Not Reportable 07/20/18 05:53 Crenated Cell Not Reportable 07/20/18 05:53 Elliptocytes Not Reportable 07/20/18 05:53 Acanthocytes (Spur) Not Reportable 07/20/18 05:53 Rouleaux Not Reportable 07/20/18 05:53 Hemoglobin C Crystals Not Reportable 07/20/18 05:53 Schistocytes Not Reportable 07/20/18 05:53 Malaria parasites Not Reportable 07/20/18 05:53 Chao Bodies Not Reportable 07/20/18 05:53 Hem Pathologist Commnt No 07/20/18 05:53 Sodium 124 mmol/L (137-145) L 07/24/18 05:19 Potassium 4.9 mmol/L (3.6-5.0) 07/24/18 05:19 Chloride 97.0 mmol/L (98-107) L 07/24/18 05:19 Carbon Dioxide 11 mmol/L (22-30) L 07/24/18 05:19 Anion Gap 21 mmol/L 07/24/18 05:19 BUN 28 mg/dL (7-17) H 07/24/18 05:19 Creatinine 2.7 mg/dL (0.7-1.2) H 07/24/18 05:19 Estimated GFR 17 ml/min 07/24/18 05:19 BUN/Creatinine Ratio 10 % 07/24/18 05:19 Glucose 84 mg/dL (65-100) 07/24/18 05:19 Hemoglobin A1c 6.2 % (4-6) H 07/18/18 13:14 Osmolality 268 Mosm/kg 07/21/18 05:33 Calcium 9.0 mg/dL (8.4-10.2) 07/24/18 05:19 Total Bilirubin 0.90 mg/dL (0.1-1.2) 07/20/18 06:42 Direct Bilirubin 0.6 mg/dL (0-0.2) H 07/18/18 13:14 Indirect Bilirubin 0.5 mg/dL 07/18/18 13:14 AST 56 units/L (5-40) H 07/20/18 06:42 ALT 52 units/L (7-56) 07/20/18 06:42 Alkaline Phosphatase 83 units/L (35-129) 07/20/18 06:42 NT-Pro-B Natriuret Pep 80061 pg/mL (0-900) H 07/18/18 13:14 Total Protein 5.3 g/dL (6.3-8.2) L 07/20/18 06:42 Albumin 2.8 g/dL (3.9-5) L 07/20/18 06:42 Albumin/Globulin Ratio 1.1 % 07/20/18 06:42 TSH 26.270 mlU/mL (0.270-4.200) H 07/19/18 14:38 Free T4 0.67 ng/dL (0.76-1.46) L 07/19/18 14:38 Thyroxine (T4) 3.4 ug/dL (4.0-12.0) L 07/19/18 14:38 Urine Color Kasey (Yellow) 07/18/18 14:30 Urine Turbidity Clear (Clear) 07/18/18 14:30 Urine pH 5.0 (5.0-7.0) 07/18/18 14:30 Ur Specific [place] 1.017 (1.003-1.030) 07/18/18 14:30 Urine Protein 30 mg/dl mg/dL (Negative) 07/18/18 14:30 Urine Glucose (UA) Neg mg/dL (Negative) 07/18/18 14:30 Urine Ketones Tr mg/dL (Negative) 07/18/18 14:30 Urine Blood Sm (Negative) 07/18/18 14:30 Urine Nitrite Neg (Negative) 07/18/18 14:30 Urine Bilirubin Neg (Negative) 07/18/18 14:30 Urine Urobilinogen 4.0 mg/dL (<2.0) 07/18/18 14:30 Ur Leukocyte Esterase Tr (Negative) 07/18/18 14:30 Urine WBC (Auto) 30.0 /HPF (0.0-6.0) H 07/18/18 14:30 Urine RBC (Auto) 3.0 /HPF (0.0-6.0) 07/18/18 14:30 U Epithel Cells (Auto) < 1.0 /HPF (0-13.0) 07/18/18 14:30 Urine Bacteria (Auto) 1+ /HPF (Negative) 07/18/18 14:30 Hyaline Casts 1 /LPF 07/18/18 14:30 Urine Mucus Few /HPF 07/18/18 14:30 Urine Osmolality 492 Mosm/kg 07/20/18 05:40 Urine Sodium 10 mmol/L 07/20/18 05:40 Urine Potassium 12.30 mmol/L 07/20/18 05:40 Urine Chloride 17.3 mmolL (110-250) L 07/20/18 05:40 Salicylates < 0.3 mg/dL (2.8-20.0) L 07/18/18 13:14 Urine Opiates Screen Presumptive negative 07/18/18 14:30 Urine Methadone Screen Presumptive negative 07/18/18 14:30 Acetaminophen 5.4 ug/mL (10.0-30.0) L 07/18/18 13:14 Ur Barbiturates Screen Presumptive negative 07/18/18 14:30 Ur Phencyclidine Scrn Presumptive negative 07/18/18 14:30 Ur Amphetamines Screen Presumptive negative 07/18/18 14:30 U Benzodiazepines Scrn Presumptive negative 07/18/18 14:30 Urine Cocaine Screen Presumptive negative 07/18/18 14:30 U Marijuana (THC) Screen Presumptive negative 07/18/18 14:30 Drugs of Abuse Note Disclamer 07/18/18 14:30 Plasma/Serum Alcohol < 0.01 % (0-0.07) 07/18/18 13:14
[2018-07-25] MEDS: LOPRESSOR PO SCH ×2 (03:45→21:44)
[2018-07-25] MEDS: LEVOTHYROXINE 62.5 MCG PO SCH (05:11)
[2018-07-25 06:44] LABS: Basophils % (Auto) 0.1 % (0.0-1.8); Eosinophils % (Auto) 0.4 % (0.0-4.3); Hematocrit 41.8 % (30.3-42.9); Hemoglobin 13.1 gm/dl (10.1-14.3); Lymphocytes # (Auto) 1.3 K/mm3 (1.2-5.4); Lymphocytes % (Auto) 14.5 % (13.4-35.0); Mean Corpuscular HGB Conc 31 % (30-34); Mean Corpuscular Volume 95 fl (79-97); Monocytes # (Auto) 1.2 K/mm3 (0.0-0.8); Monocytes % (Auto) 13.2 % (0.0-7.3); Platelet Count 199 K/mm3 (140-440); Red Blood Count 4.38 M/mm3 (3.65-5.03); Red Cell Distribution Width 15.8 % (13.2-15.2)
[2018-07-25 06:57] LABS: Calcium 9.1 mg/dL (8.4-10.2)
[2018-07-25] MEDS: SODIUM BICARBONATE PO SCH ×2 (09:07→21:44)
[2018-07-25] MEDS: XARELTO PO SCH (09:07)
[2018-07-25] MEDS: SODIUM CHLORIDE FLUSH SYRINGE 10 ML IV SCH ×2 (09:08→21:45)
[2018-07-25] MEDS: PAXIL PO SCH (09:08)
[2018-07-25] MEDS: PEPCID PO SCH (09:08)
--- NOTE | 2018-07-25 10:26 | Progress Note ---
Assessment and Plan Lasix held in setting of worsening DL. Renal indices continue to trend upwards. Nephrology following. Initiate dobutamine gtt @ 5mcg/kg/min and tx to telemetry. D/w hospitalist. The patient has been seen in conjunction with Dr. Callahan who agrees with the assessment and plan of care. - Patient Problems (1) Chronic atrial fibrillation with RVR Current Visit: Yes Status: Acute (2) Acute HFrEF (heart failure with reduced ejection fraction) Current Visit: Yes Status: Acute (3) Cardiomyopathy Current Visit: Yes Status: Chronic Qualifiers: Cardiomyopathy type: unspecified Qualified Code(s): I42.9 - Cardiomyopathy, unspecified (4) DL (acute kidney injury) Current Visit: Yes Status: Acute (5) UTI (urinary tract infection) Current Visit: Yes Status: Acute Qualifiers: Urinary tract infection type: acute cystitis Hematuria presence: without hematuria Qualified Code(s): N30.00 - Acute cystitis without hematuria (6) Hyponatremia Current Visit: Yes Status: Acute (7) Depression Current Visit: Yes Status: Chronic Qualifiers: Depression Type: unspecified Qualified Code(s): F32.9 - Major depressive disorder, single episode, unspecified (8) Hyperlipidemia Current Visit: Yes Status: Chronic Qualifiers: Hyperlipidemia type: mixed hyperlipidemia Qualified Code(s): E78.2 - Mixed hyperlipidemia (9) Hypertension Current Visit: Yes Status: Chronic Qualifiers: Hypertension type: essential hypertension Qualified Code(s): I10 - Essential (primary) hypertension (10) Hypothyroidism Current Visit: Yes Status: Chronic Qualifiers: Qualified Code(s): E03.9 - Hypothyroidism, unspecified (11) Cardiac pacemaker in situ Current Visit: Yes Status: Chronic Subjective Date of service: 07/25/18 Principal diagnosis: HF Interval history: pt resting in bed, lethargic, no current cardiac complaints. Objective Last Vital Signs Temp 97.8 F 07/25/18 07:36 Pulse 79 07/25/18 07:36 Resp 20 07/25/18 07:36 BP 105/64 07/25/18 07:36 Pulse Ox 93 07/25/18 07:36 - Physical Examination General: Other (lethargic ) HEENT: Positive: PERRL Neck: Positive: trachea midline Cardiac: Positive: irregularly irregular, S1/S2 Lungs: Positive: Decreased Breath Sounds Neuro: Positive: Grossly Intact Abdomen: Positive: Unremarkable Extremities: Present: +3 Edema - Labs and Meds CBC 07/25/18 Range/Units 05:25 WBC 8.9 (4.5-11.0) K/mm3 RBC 4.38 (3.65-5.03) M/mm3 Hgb 13.1 (10.1-14.3) gm/dl Hct 41.8 (30.3-42.9) % Plt Count 199 (140-440) K/mm3 Lymph # 1.3 (1.2-5.4) K/mm3 Kendall # 1.2 H (0.0-0.8) K/mm3 Eos # 0.0 (0.0-0.4) K/mm3 Baso # 0.0 (0.0-0.1) K/mm3 Comprehensive Metabolic Panel 07/25/18 Range/Units 05:25 Sodium 126 L (137-145) mmol/L Potassium 4.8 (3.6-5.0) mmol/L Chloride 95.9 L (98-107) mmol/L Carbon Dioxide 14 L (22-30) mmol/L BUN 35 H (7-17) mg/dL Creatinine 3.7 H (0.7-1.2) mg/dL Glucose 95 (65-100) mg/dL Calcium 9.1 (8.4-10.2) mg/dL - Imaging and Cardiology EKG: report reviewed, image reviewed Echo: report reviewed (Echo reviewed - EF 15-20%, severe 4-chamber dilated CMP, mod to severe MR, mod TR, pacemaker wire in right heart chambers. Echo done 10/2015 showed EF 50-55%. Cardiac PET done 04/2017 was negative for ischemia, normal LV systolic function. ) - Allied health notes Allied health notes reviewed: nursing
--- NOTE | 2018-07-25 10:42 | Progress Note ---
Assessment and Plan - Patient Problems (1) DL (acute kidney injury) Current Visit: Yes Status: Acute Plan to address problem: Renal worsening likely due to acute cardiorenal syndrome, ATN in the setting of hypotensive episodes cannot be ruled out. recommend trial with inotropic support if cardiology agrees. avoid nephrotoxins, NSAIDs, IV contrast. Discussed with pt's daughter (Ms Beckham) regarding progressive DL which may require possible renal replacement therapy, if pt does not respond to medical therapy, but as per daughter, pt never wanted to be on dialysis or other life sustaining measures if her overall prognosis becomes poor. She also stressed that pt wanted to be DNR/DNI. will continue current supportive care from renal stand point, d/c with Dr Hernandez. (2) Hyponatremia Current Visit: Yes Status: Acute Plan to address problem: Na remains low at 126. cont fluid restriction to 1.5L/day. cont synthroid. another tolvaptan 15mg x 1 dose given (3) Hypothyroidism Current Visit: Yes Status: Chronic Qualifiers: Qualified Code(s): E03.9 - Hypothyroidism, unspecified Plan to address problem: Cont synthroid. (4) Acute systolic (congestive) heart failure Current Visit: Yes Status: Acute Plan to address problem: cont fluid restriction to 1.5/day. lasix held given declining eGFR. pt with hypotensive episodes and worsening renal function, likely secondary to cardiorenal syndrome. recommend trial with inotropic support if cardiology agrees. (5) Acute and chronic respiratory failure with hypoxia Current Visit: Yes Status: Acute Plan to address problem: Overall respiratory status is stable on 2 L of O2 via nasal cannula. avoid IVF (6) Depression Current Visit: Yes Status: Chronic Qualifiers: Depression Type: unspecified Qualified Code(s): F32.9 - Major depressive disorder, single episode, unspecified Plan to address problem: Further recommendations per psychiatry. Subjective Date of service: 07/25/18 Principal diagnosis: HF Interval history: pt awake, alert, in no acute respiratory distress, worsening renal function noted, even after lasix was stopped. pt with paroxysmal A-fib w/ RVR Objective - Vital Signs Vital signs: Vital Signs - 12hr 07/25/18 07/25/18 07/25/18 01:56 03:45 07:36 Temperature 97.3 F L 97.8 F Pulse Rate 117 H 117 H 79 Respiratory 20 20 Rate Blood Pressure 93/58 93/58 105/64 O2 Sat by Pulse 91 93 Oximetry - General Appearance General appearance: well-developed, well-nourished, appears stated age, chronically ill EENT: ATNC, PERRL, mucous membranes moist Neck: no JVD Respiratory: Present: Decreased Breath Sounds Cardiology: regular, S1S2 Gastrointestinal: normoactive bowel sounds, obese Integumentary: no rash, other (no pitting edema ) Neurologic: no focal deficit, alert and oriented x3, strength 5/5, CN 3-12 in tact Psychiatric: mood/affect appropriate, cooperative - Lab 07/25/18 05:25 07/25/18 05:25 Most recent lab results Calcium 9.1 mg/dL (8.4-10.2) 07/25/18 05:25 Urine Sodium 10 mmol/L 07/20/18 05:40 Medications & Allergies - Medications Allergies/Adverse Reactions: Allergies cefaclor [From Ceclor] Allergy (Verified 07/18/18 13:05) Unknown ciprofloxacin [From Cipro] Allergy (Verified 07/18/18 13:05) Unknown diphenhydramine [From Benadryl] Allergy (Verified 07/18/18 13:05) Unknown iodine Allergy (Verified 07/18/18 13:05) Unknown levofloxacin [From Levaquin] Allergy (Verified 07/18/18 13:05) Unknown moxifloxacin [From Avelox] Allergy (Verified 07/18/18 13:05) Unknown nitrofurantoin [From Macrodantin] Allergy (Verified 07/18/18 13:05) Unknown Penicillins Allergy (Verified 07/18/18 13:05) Unknown sulfamethoxazole [From Septra] Allergy (Verified 07/18/18 13:05) Unknown tetracycline Allergy (Verified 07/18/18 13:05) Unknown trimethoprim [From Septra] Allergy (Verified 07/18/18 13:05) Unknown mycins Allergy (Uncoded 07/18/18 13:05) Unknown Home Medications: Home Medications Medication Instructions Recorded Confirmed Last Taken Type Benzonatate [Tessalon Perle] 100 mg PO PRN 07/18/18 07/18/18 Unknown History Diltiazem HCl [Diltiazem 24Hr ER] 240 mg PO QAM 07/18/18 07/18/18 Unknown History Levothyroxine [Synthroid] 125 mcg PO QAM 07/18/18 07/18/18 Unknown History Loperamide 2 mg PO DAILY 07/18/18 07/18/18 Unknown History Metoprolol SUCCINATE ER TAB 25 mg PO QPCHS 07/18/18 07/18/18 Unknown History PARoxetine [Paxil] 20 mg PO DAILY 07/18/18 07/18/18 Unknown History Rivaroxaban [Xarelto] 15 mg PO DAILY 07/18/18 07/18/18 Unknown History Active Medications: Generic Name Dose Route Start Last Admin Trade Name Freq PRN Reason Stop Dose Admin Acetaminophen 650 mg 07/19/18 00:20 Tylenol PO Q4H PRN Pain MILD(1-3)/Fever >100.5/BEASLEY Albuterol 2.5 mg 07/20/18 09:46 07/23/18 07:25 Proventil IH 2.5 mg Q4HRT PRN Administration Shortness Of Breath Famotidine 20 mg 07/19/18 10:00 07/25/18 09:08 Pepcid PO 20 mg QAM KIAN Administration Hydromorphone HCl 0.25 mg 07/19/18 00:20 Dilaudid IV Q3H PRN Pain, Moderate (4-6) Dobutamine HCl/Dextrose 500 mg in 250 mls @ 13.05 mls/hr 07/25/18 11:24 Dobutrex Drip 500mg/D5w 250ml IV 07/26/18 06:33 TITR ONE 5 MCG/KG/MIN Metoclopramide HCl 5 mg 07/19/18 00:20 Reglan IV Q6H PRN Nausea And Vomiting Metoprolol Tartrate 25 mg 07/25/18 22:00 Lopressor PO BID KIAN Miscellaneous Medication 62.5 mcg 07/23/18 06:00 07/25/18 05:11 Nf Synthroid PO 62.5 mcg Q24H KIAN Administration Ondansetron HCl 4 mg 07/19/18 00:20 Zofran IV Q8H PRN Nausea And Vomiting Paroxetine HCl 20 mg 07/21/18 10:00 07/25/18 09:08 Paxil PO 20 mg QDAY KIAN Administration Rivaroxaban 15 mg 07/20/18 10:00 07/25/18 09:07 Xarelto PO 15 mg DAILY KIAN Administration Protocol Sodium Bicarbonate 1,300 mg 07/24/18 11:00 07/25/18 09:07 Sodium Bicarbonate PO 1,300 mg BID KIAN Administration Sodium Chloride 10 ml 07/19/18 10:00 07/25/18 09:08 Sodium Chloride Flush Syringe 10 Ml IV 10 ml BID KIAN Administration Sodium Chloride 10 ml 07/19/18 00:20 Sodium Chloride Flush Syringe 10 Ml IV PRN PRN LINE FLUSH
--- NOTE | 2018-07-25 11:03 | Progress Note ---
Assessment and Plan Assessment and plan: 83-year-old woman with past medical history of hypothyroidism. The patient has been dealing with grief after the of a family member. The patient presents with worsening depression. She initially came to the ER hoping to be placed in geriatric psychiatric unit. However she was found to be severely hyponatremic Hospital course/plan Sodium was as low as 119 on admission, nephrology consult appreciated -received tolvaptan x 2 doses -TSH is extremely elevated and T4 is low. Has been restarted on Synthroid. Highly doubt that she is compliant with that at home, she had normal tfts in May -rx UTI w abx, fosphomycin x1 given multiple allergies, Urine cx growing multiple organisms - consult appreciated, cont paxil for now; while Paxil can cause hyponatremia, the benefits outweighed the risk in this patient with chronic depression -Afib wRVR, started on metoprolol, dilt held due to low BP, plan to add JENNY-I when creat is improved -cont xarelto for stroke ppx -Wean off oxygen as tolerated --she got lasix, Cr went up, dc lasix since 07/23 -management of DL per nephrology, -received lasix, lasix now held due to DL, worsening metabolic acidosis, added NaHCO3 tabs, cont water restriction -worsening cardiorenal syndrome, 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, 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 and start on Dobutamine drip Diagnosis Severe hyponatremia metabolic acidosis Hypothyroidism symptomatic UTI Acute kidney injury due to vasomotor nephropathy major Depression with acute flare afib with RVR, Hx of failed cardioversion in 2016 SP PPM Hypercoagulable state Hx of RLE dvt 20 years ago acute on chronic systolic CHF, EF 15% hx of Rx drug dependence ( opioids, ambien and benzos), was weaned off over 5 year period in suboxone clinic, now in remission Acute hypoxic respiratory failure due to CHF exacerbation DL- vasomotor nephropathy Cardiorenal syndrome Dispo; plan to dc to [facility] when improved DNR/DNI, patient does not want Dialysis or to be on machines History Interval history: Complaining of generalized weakness Complaining of shortness of breath and generalized body edema GI: No abdominal pain, no diarrhea, no vomiting, no constipation Respiratory: no wheezing, no coughing Hospitalist Physical - Physical exam Narrative exam: General.: appears sad, appears ill HEENT: Moist mucous membranes, extraocular muscles intact, no lymphadenopathy Neck: supple Cardiac: S1-S2 heard Lungs: Bibasilar crackles Abdomen: soft , nontender, nondistended, bowel sounds positive Extremities: Generalized body edema Skin: no rash or lesions Neurologic: no gross focal deficits Psych: Appears depressed - Constitutional Vitals: Temp Pulse Resp BP Pulse Ox 97.8 F 80 20 105/64 93 07/25/18 07:36 07/25/18 10:00 07/25/18 10:00 07/25/18 07:36 07/25/18 07:36 General appearance: Present: no acute distress Results - Labs CBC & Chem 7: 07/25/18 05:25 07/25/18 05:25 Labs: Laboratory Last Values WBC 8.9 K/mm3 (4.5-11.0) 07/25/18 05:25 RBC 4.38 M/mm3 (3.65-5.03) 07/25/18 05:25 Hgb 13.1 gm/dl (10.1-14.3) 07/25/18 05:25 Hct 41.8 % (30.3-42.9) 07/25/18 05:25 MCV 95 fl (79-97) 07/25/18 05:25 MCH 30 pg (28-32) 07/25/18 05:25 MCHC 31 % (30-34) 07/25/18 05:25 RDW 15.8 % (13.2-15.2) H 07/25/18 05:25 Plt Count 199 K/mm3 (140-440) 07/25/18 05:25 Lymph % (Auto) 14.5 % (13.4-35.0) 07/25/18 05:25 [place] % (Auto) 13.2 % (0.0-7.3) H 07/25/18 05:25 Eos % (Auto) 0.4 % (0.0-4.3) 07/25/18 05:25 Baso % (Auto) 0.1 % (0.0-1.8) 07/25/18 05:25 Lymph # 1.3 K/mm3 (1.2-5.4) 07/25/18 05:25 [place] # 1.2 K/mm3 (0.0-0.8) H 07/25/18 05:25 Eos # 0.0 K/mm3 (0.0-0.4) 07/25/18 05:25 Baso # 0.0 K/mm3 (0.0-0.1) 07/25/18 05:25 Add Manual Diff Complete 07/20/18 05:53 Total Counted 100 07/20/18 05:53 Seg Neutrophils % 71.8 % (40.0-70.0) H 07/25/18 05:25 Seg Neuts % (Manual) 83.0 % (40.0-70.0) H 07/20/18 05:53 Band Neutrophils % 0 % 07/20/18 05:53 Lymphocytes % (Manual) 13.0 % (13.4-35.0) L 07/20/18 05:53 Reactive Lymphs % (Man) 0 % 07/20/18 05:53 Monocytes % (Manual) 2.0 % (0.0-7.3) 07/20/18 05:53 Eosinophils % (Manual) 1.0 % (0.0-4.3) 07/20/18 05:53 Basophils % (Manual) 1.0 % (0.0-1.8) 07/20/18 05:53 Metamyelocytes % 0 % 07/20/18 05:53 Myelocytes % 0 % 07/20/18 05:53 Promyelocytes % 0 % 07/20/18 05:53 Blast Cells % 0 % 07/20/18 05:53 Nucleated RBC % Not Reportable 07/20/18 05:53 Seg Neutrophils # 6.4 K/mm3 (1.8-7.7) 07/25/18 05:25 Seg Neutrophils # Man 6.1 K/mm3 (1.8-7.7) 07/20/18 05:53 Band Neutrophils # 0.0 K/mm3 07/20/18 05:53 Lymphocytes # (Manual) 0.9 K/mm3 (1.2-5.4) L 07/20/18 05:53 Abs React Lymphs (Man) 0.0 K/mm3 07/20/18 05:53 Monocytes # (Manual) 0.1 K/mm3 (0.0-0.8) 07/20/18 05:53 Eosinophils # (Manual) 0.1 K/mm3 (0.0-0.4) 07/20/18 05:53 Basophils # (Manual) 0.1 K/mm3 (0.0-0.1) 07/20/18 05:53 Metamyelocytes # 0.0 K/mm3 07/20/18 05:53 Myelocytes # 0.0 K/mm3 07/20/18 05:53 Promyelocytes # 0.0 K/mm3 07/20/18 05:53 Blast Cells # 0.0 K/mm3 07/20/18 05:53 WBC Morphology Not Reportable 07/20/18 05:53 Hypersegmented Neuts Not Reportable 07/20/18 05:53 Hyposegmented Neuts Not Reportable 07/20/18 05:53 Hypogranular Neuts Not Reportable 07/20/18 05:53 Smudge Cells Not Reportable 07/20/18 05:53 Toxic Granulation Not Reportable 07/20/18 05:53 Toxic Vacuolation Not Reportable 07/20/18 05:53 Dohle Bodies Not Reportable 07/20/18 05:53 Pelger-Huet Anomaly Not Reportable 07/20/18 05:53 Barbi Rods Not Reportable 07/20/18 05:53 Platelet Estimate Consistent w auto 07/20/18 05:53 Clumped Platelets Not Reportable 07/20/18 05:53 Plt Clumps, EDTA Not Reportable 07/20/18 05:53 Large Platelets Not Reportable 07/20/18 05:53 Giant Platelets Not Reportable 07/20/18 05:53 Platelet Satelliting Not Reportable 07/20/18 05:53 Plt Morphology Comment Not Reportable 07/20/18 05:53 RBC Morphology Not Reportable 07/20/18 05:53 Dimorphic RBCs Not Reportable 07/20/18 05:53 Polychromasia Not Reportable 07/20/18 05:53 Hypochromasia Few 07/20/18 05:53 Poikilocytosis 1+ 07/20/18 05:53 Anisocytosis 1+ 07/20/18 05:53 Microcytosis Few 07/20/18 05:53 Macrocytosis Not Reportable 07/20/18 05:53 Spherocytes Not Reportable 07/20/18 05:53 Pappenheimer Bodies Not Reportable 07/20/18 05:53 Sickle Cells Not Reportable 07/20/18 05:53 Target Cells Rare 07/20/18 05:53 Tear Drop Cells Not Reportable 07/20/18 05:53 Ovalocytes Rare 07/20/18 05:53 Helmet Cells Not Reportable 07/20/18 05:53 [place] Bodies Not Reportable 07/20/18 05:53 [place] Rings Not Reportable 07/20/18 05:53 [place] Cells Not Reportable 07/20/18 05:53 Bite Cells Not Reportable 07/20/18 05:53 Crenated Cell Not Reportable 07/20/18 05:53 Elliptocytes Not Reportable 07/20/18 05:53 Acanthocytes (Spur) Not Reportable 07/20/18 05:53 Rouleaux Not Reportable 07/20/18 05:53 Hemoglobin C Crystals Not Reportable 07/20/18 05:53 Schistocytes Not Reportable 07/20/18 05:53 Malaria parasites Not Reportable 07/20/18 05:53 Chao Bodies Not Reportable 07/20/18 05:53 Hem Pathologist Commnt No 07/20/18 05:53 Sodium 126 mmol/L (137-145) L 07/25/18 05:25 Potassium 4.8 mmol/L (3.6-5.0) 07/25/18 05:25 Chloride 95.9 mmol/L (98-107) L 07/25/18 05:25 Carbon Dioxide 14 mmol/L (22-30) L 07/25/18 05:25 Anion Gap 21 mmol/L 07/25/18 05:25 BUN 35 mg/dL (7-17) H 07/25/18 05:25 Creatinine 3.7 mg/dL (0.7-1.2) H 07/25/18 05:25 Estimated GFR 12 ml/min 07/25/18 05:25 BUN/Creatinine Ratio 9 % 07/25/18 05:25 Glucose 95 mg/dL (65-100) 07/25/18 05:25 Hemoglobin A1c 6.2 % (4-6) H 07/18/18 13:14 Osmolality 268 Mosm/kg 07/21/18 05:33 Calcium 9.1 mg/dL (8.4-10.2) 07/25/18 05:25 Total Bilirubin 0.90 mg/dL (0.1-1.2) 07/20/18 06:42 Direct Bilirubin 0.6 mg/dL (0-0.2) H 07/18/18 13:14 Indirect Bilirubin 0.5 mg/dL 07/18/18 13:14 AST 56 units/L (5-40) H 07/20/18 06:42 ALT 52 units/L (7-56) 07/20/18 06:42 Alkaline Phosphatase 83 units/L (35-129) 07/20/18 06:42 NT-Pro-B Natriuret Pep 20794 pg/mL (0-900) H 07/18/18 13:14 Total Protein 5.3 g/dL (6.3-8.2) L 07/20/18 06:42 Albumin 2.8 g/dL (3.9-5) L 07/20/18 06:42 Albumin/Globulin Ratio 1.1 % 07/20/18 06:42 TSH 26.270 mlU/mL (0.270-4.200) H 07/19/18 14:38 Free T4 0.67 ng/dL (0.76-1.46) L 07/19/18 14:38 Thyroxine (T4) 3.4 ug/dL (4.0-12.0) L 07/19/18 14:38 Urine Color [place] (Yellow) 07/18/18 14:30 Urine Turbidity Clear (Clear) 07/18/18 14:30 Urine pH 5.0 (5.0-7.0) 07/18/18 14:30 Ur Specific [place] 1.017 (1.003-1.030) 07/18/18 14:30 Urine Protein 30 mg/dl mg/dL (Negative) 07/18/18 14:30 Urine Glucose (UA) Neg mg/dL (Negative) 07/18/18 14:30 Urine Ketones Tr mg/dL (Negative) 07/18/18 14:30 Urine Blood Sm (Negative) 07/18/18 14:30 Urine Nitrite Neg (Negative) 07/18/18 14:30 Urine Bilirubin Neg (Negative) 07/18/18 14:30 Urine Urobilinogen 4.0 mg/dL (<2.0) 07/18/18 14:30 Ur Leukocyte Esterase Tr (Negative) 07/18/18 14:30 Urine WBC (Auto) 30.0 /HPF (0.0-6.0) H 07/18/18 14:30 Urine RBC (Auto) 3.0 /HPF (0.0-6.0) 07/18/18 14:30 U Epithel Cells (Auto) < 1.0 /HPF (0-13.0) 07/18/18 14:30 Urine Bacteria (Auto) 1+ /HPF (Negative) 07/18/18 14:30 Hyaline Casts 1 /LPF 07/18/18 14:30 Urine Mucus Few /HPF 07/18/18 14:30 Urine Osmolality 492 Mosm/kg 07/20/18 05:40 Urine Sodium 10 mmol/L 07/20/18 05:40 Urine Potassium 12.30 mmol/L 07/20/18 05:40 Urine Chloride 17.3 mmolL (110-250) L 07/20/18 05:40 Salicylates < 0.3 mg/dL (2.8-20.0) L 07/18/18 13:14 Urine Opiates Screen Presumptive negative 07/18/18 14:30 Urine Methadone Screen Presumptive negative 07/18/18 14:30 Acetaminophen 5.4 ug/mL (10.0-30.0) L 07/18/18 13:14 Ur Barbiturates Screen Presumptive negative 07/18/18 14:30 Ur Phencyclidine Scrn Presumptive negative 07/18/18 14:30 Ur Amphetamines Screen Presumptive negative 07/18/18 14:30 U Benzodiazepines Scrn Presumptive negative 07/18/18 14:30 Urine Cocaine Screen Presumptive negative 07/18/18 14:30 U Marijuana (THC) Screen Presumptive negative 07/18/18 14:30 Drugs of Abuse Note Disclamer 07/18/18 14:30 Plasma/Serum Alcohol < 0.01 % (0-0.07) 07/18/18 13:14
[2018-07-25] MEDS ORDERED: DOBUTREX DRIP 500MG/D5W 250ML 500 MG/250 ML BAG IV ONE (11:24)
[2018-07-25] MEDS ORDERED: SAMSCA PO ONE (12:00)
[2018-07-26] MEDS: LEVOTHYROXINE 62.5 MCG PO SCH (05:20)
[2018-07-26 06:39] LABS: Calcium 8.5 mg/dL (8.4-10.2)
[2018-07-26] MEDS ORDERED: MILRINONE-D5W 20 MG/100 ML 20 MG/100 ML BAG IV SCH (12:00)
[2018-07-26] MEDS: XARELTO PO SCH (12:14)
[2018-07-26] MEDS: SODIUM BICARBONATE PO SCH ×2 (12:15→21:16)
[2018-07-26] MEDS: PAXIL PO SCH (12:16)
[2018-07-26] MEDS: LOPRESSOR PO SCH ×2 (12:16→21:16)
[2018-07-26] MEDS: PEPCID PO SCH (12:16)
[2018-07-26] MEDS: SODIUM CHLORIDE FLUSH SYRINGE 10 ML IV SCH ×2 (12:25→21:16)
[2018-07-26] MEDS: LASIX IV SCH ×2 (12:26→18:46)
--- NOTE | 2018-07-26 13:44 | Progress Note ---
Assessment and Plan Renal indices continue to trend upwards. Nephrology following. Pt currently declines dialysis. Pt and pt's family considering hospice. Cont dobutamine gtt @ 5mcg/kg/min. The patient has been seen in conjunction with Dr. Clalahan who agrees with the assessment and plan of care. - Patient Problems (1) Chronic atrial fibrillation with RVR Current Visit: Yes Status: Acute (2) Acute HFrEF (heart failure with reduced ejection fraction) Current Visit: Yes Status: Acute (3) Cardiomyopathy Current Visit: Yes Status: Chronic Qualifiers: Cardiomyopathy type: unspecified Qualified Code(s): I42.9 - Cardiomyopathy, unspecified (4) DL (acute kidney injury) Current Visit: Yes Status: Acute (5) UTI (urinary tract infection) Current Visit: Yes Status: Acute Qualifiers: Urinary tract infection type: acute cystitis Hematuria presence: without hematuria Qualified Code(s): N30.00 - Acute cystitis without hematuria (6) Hyponatremia Current Visit: Yes Status: Acute (7) Depression Current Visit: Yes Status: Chronic Qualifiers: Depression Type: unspecified Qualified Code(s): F32.9 - Major depressive disorder, single episode, unspecified (8) Hyperlipidemia Current Visit: Yes Status: Chronic Qualifiers: Hyperlipidemia type: mixed hyperlipidemia Qualified Code(s): E78.2 - Mixed hyperlipidemia (9) Hypertension Current Visit: Yes Status: Chronic Qualifiers: Hypertension type: essential hypertension Qualified Code(s): I10 - Essential (primary) hypertension (10) Hypothyroidism Current Visit: Yes Status: Chronic Qualifiers: Qualified Code(s): E03.9 - Hypothyroidism, unspecified (11) Cardiac pacemaker in situ Current Visit: Yes Status: Chronic Subjective Date of service: 07/26/18 Principal diagnosis: HF Interval history: pt resting in bed, lethargic, no current cardiac complaints. Objective Last Vital Signs Temp 98.0 F 07/26/18 11:37 Pulse 102 H 07/26/18 11:37 Resp 22 07/26/18 11:37 BP 100/68 07/26/18 11:37 Pulse Ox 95 07/26/18 11:37 - Physical Examination General: Other (lethargic ) HEENT: Positive: PERRL Neck: Positive: trachea midline Cardiac: Positive: irregularly irregular, S1/S2 Lungs: Positive: Normal Breath Sounds, Decreased Breath Sounds Neuro: Positive: Grossly Intact Abdomen: Positive: Unremarkable Extremities: Present: +3 Edema - Labs and Meds Comprehensive Metabolic Panel 07/26/18 Range/Units 05:11 Sodium 128 L (137-145) mmol/L Potassium 4.3 (3.6-5.0) mmol/L Chloride 95.7 L (98-107) mmol/L Carbon Dioxide 19 L (22-30) mmol/L BUN 41 H (7-17) mg/dL Creatinine 3.9 H (0.7-1.2) mg/dL Glucose 97 (65-100) mg/dL Calcium 8.5 (8.4-10.2) mg/dL - Imaging and Cardiology EKG: report reviewed, image reviewed Echo: report reviewed (Echo reviewed - EF 15-20%, severe 4-chamber dilated CMP, mod to severe MR, mod TR, pacemaker wire in right heart chambers. Echo done 10/2015 showed EF 50-55%. Cardiac PET done 04/2017 was negative for ischemia, normal LV systolic function. ) - Allied health notes Allied health notes reviewed: nursing
--- NOTE | 2018-07-26 14:12 | Progress Note ---
Assessment and Plan Assessment and plan: 83-year-old woman with past medical history of hypothyroidism. The patient has been dealing with grief after the of a family member. The patient presents with worsening depression. She initially came to the ER hoping to be placed in geriatric psychiatric unit. However she was found to be severely hyponatremic Hospital course/plan Sodium was as low as 119 on admission, nephrology consult appreciated -received tolvaptan x 2 doses -TSH is extremely elevated and T4 is low. Has been restarted on Synthroid. 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 ggt and lasix _family interested in hospice, will consider hospice if she does not improve after next 48 hours Diagnosis Severe hyponatremia metabolic acidosis Hypothyroidism symptomatic UTI Acute kidney injury due to vasomotor nephropathy major Depression with acute flare afib with RVR, Hx of failed cardioversion in 2016 SP PPM Hypercoagulable state Hx of RLE dvt 20 years ago acute on chronic systolic CHF, EF 15% hx of Rx drug dependence ( opioids, ambien and benzos), was weaned off over 5 year period in suboxone clinic, now in remission Acute hypoxic respiratory failure due to CHF exacerbation DL- vasomotor nephropathy Cardiorenal syndrome Poor prognosis; dw family DNR/DNI, patient does not want Dialysis or to be on machines History Interval history: Complaining of generalized weakness Complaining of shortness of breath and generalized body edema GI: No abdominal pain, no diarrhea, no vomiting, no constipation Respiratory: no wheezing, no coughing Hospitalist Physical - Physical exam Narrative exam: General.: appears sad, appears ill HEENT: Moist mucous membranes, extraocular muscles intact, no lymphadenopathy Neck: supple Cardiac: S1-S2 heard Lungs: Bibasilar crackles Abdomen: soft , nontender, nondistended, bowel sounds positive Extremities: Generalized body edema Skin: no rash or lesions Neurologic: no gross focal deficits Psych: Appears depressed - Constitutional Vitals: Temp Pulse Resp BP Pulse Ox 98.0 F 102 H 22 100/68 95 07/26/18 11:37 07/26/18 11:37 07/26/18 11:37 07/26/18 11:37 07/26/18 11:37 General appearance: Present: no acute distress Results - Labs CBC & Chem 7: 07/25/18 05:25 07/26/18 05:11 Labs: Laboratory Last Values WBC 8.9 K/mm3 (4.5-11.0) 07/25/18 05:25 RBC 4.38 M/mm3 (3.65-5.03) 07/25/18 05:25 Hgb 13.1 gm/dl (10.1-14.3) 07/25/18 05:25 Hct 41.8 % (30.3-42.9) 07/25/18 05:25 MCV 95 fl (79-97) 07/25/18 05:25 MCH 30 pg (28-32) 07/25/18 05:25 MCHC 31 % (30-34) 07/25/18 05:25 RDW 15.8 % (13.2-15.2) H 07/25/18 05:25 Plt Count 199 K/mm3 (140-440) 07/25/18 05:25 Lymph % (Auto) 14.5 % (13.4-35.0) 07/25/18 05:25 [place] % (Auto) 13.2 % (0.0-7.3) H 07/25/18 05:25 Eos % (Auto) 0.4 % (0.0-4.3) 07/25/18 05:25 Baso % (Auto) 0.1 % (0.0-1.8) 07/25/18 05:25 Lymph # 1.3 K/mm3 (1.2-5.4) 07/25/18 05:25 [place] # 1.2 K/mm3 (0.0-0.8) H 07/25/18 05:25 Eos # 0.0 K/mm3 (0.0-0.4) 07/25/18 05:25 Baso # 0.0 K/mm3 (0.0-0.1) 07/25/18 05:25 Add Manual Diff Complete 07/20/18 05:53 Total Counted 100 07/20/18 05:53 Seg Neutrophils % 71.8 % (40.0-70.0) H 07/25/18 05:25 Seg Neuts % (Manual) 83.0 % (40.0-70.0) H 07/20/18 05:53 Band Neutrophils % 0 % 07/20/18 05:53 Lymphocytes % (Manual) 13.0 % (13.4-35.0) L 07/20/18 05:53 Reactive Lymphs % (Man) 0 % 07/20/18 05:53 Monocytes % (Manual) 2.0 % (0.0-7.3) 07/20/18 05:53 Eosinophils % (Manual) 1.0 % (0.0-4.3) 07/20/18 05:53 Basophils % (Manual) 1.0 % (0.0-1.8) 07/20/18 05:53 Metamyelocytes % 0 % 07/20/18 05:53 Myelocytes % 0 % 07/20/18 05:53 Promyelocytes % 0 % 07/20/18 05:53 Blast Cells % 0 % 07/20/18 05:53 Nucleated RBC % Not Reportable 07/20/18 05:53 Seg Neutrophils # 6.4 K/mm3 (1.8-7.7) 07/25/18 05:25 Seg Neutrophils # Man 6.1 K/mm3 (1.8-7.7) 07/20/18 05:53 Band Neutrophils # 0.0 K/mm3 07/20/18 05:53 Lymphocytes # (Manual) 0.9 K/mm3 (1.2-5.4) L 07/20/18 05:53 Abs React Lymphs (Man) 0.0 K/mm3 07/20/18 05:53 Monocytes # (Manual) 0.1 K/mm3 (0.0-0.8) 07/20/18 05:53 Eosinophils # (Manual) 0.1 K/mm3 (0.0-0.4) 07/20/18 05:53 Basophils # (Manual) 0.1 K/mm3 (0.0-0.1) 07/20/18 05:53 Metamyelocytes # 0.0 K/mm3 07/20/18 05:53 Myelocytes # 0.0 K/mm3 07/20/18 05:53 Promyelocytes # 0.0 K/mm3 07/20/18 05:53 Blast Cells # 0.0 K/mm3 07/20/18 05:53 WBC Morphology Not Reportable 07/20/18 05:53 Hypersegmented Neuts Not Reportable 07/20/18 05:53 Hyposegmented Neuts Not Reportable 07/20/18 05:53 Hypogranular Neuts Not Reportable 07/20/18 05:53 Smudge Cells Not Reportable 07/20/18 05:53 Toxic Granulation Not Reportable 07/20/18 05:53 Toxic Vacuolation Not Reportable 07/20/18 05:53 Dohle Bodies Not Reportable 07/20/18 05:53 Pelger-Huet Anomaly Not Reportable 07/20/18 05:53 Barbi Rods Not Reportable 07/20/18 05:53 Platelet Estimate Consistent w auto 07/20/18 05:53 Clumped Platelets Not Reportable 07/20/18 05:53 Plt Clumps, EDTA Not Reportable 07/20/18 05:53 Large Platelets Not Reportable 07/20/18 05:53 Giant Platelets Not Reportable 07/20/18 05:53 Platelet Satelliting Not Reportable 07/20/18 05:53 Plt Morphology Comment Not Reportable 07/20/18 05:53 RBC Morphology Not Reportable 07/20/18 05:53 Dimorphic RBCs Not Reportable 07/20/18 05:53 Polychromasia Not Reportable 07/20/18 05:53 Hypochromasia Few 07/20/18 05:53 Poikilocytosis 1+ 07/20/18 05:53 Anisocytosis 1+ 07/20/18 05:53 Microcytosis Few 07/20/18 05:53 Macrocytosis Not Reportable 07/20/18 05:53 Spherocytes Not Reportable 07/20/18 05:53 Pappenheimer Bodies Not Reportable 07/20/18 05:53 Sickle Cells Not Reportable 07/20/18 05:53 Target Cells Rare 07/20/18 05:53 Tear Drop Cells Not Reportable 07/20/18 05:53 Ovalocytes Rare 07/20/18 05:53 Helmet Cells Not Reportable 07/20/18 05:53 Long-[place] Bodies Not Reportable 07/20/18 05:53 [place] Rings Not Reportable 07/20/18 05:53 Nora Cells Not Reportable 07/20/18 05:53 Bite Cells Not Reportable 07/20/18 05:53 Crenated Cell Not Reportable 07/20/18 05:53 Elliptocytes Not Reportable 07/20/18 05:53 Acanthocytes (Spur) Not Reportable 07/20/18 05:53 Rouleaux Not Reportable 07/20/18 05:53 Hemoglobin C Crystals Not Reportable 07/20/18 05:53 Schistocytes Not Reportable 07/20/18 05:53 Malaria parasites Not Reportable 07/20/18 05:53 Chao Bodies Not Reportable 07/20/18 05:53 Hem Pathologist Commnt No 07/20/18 05:53 Sodium 128 mmol/L (137-145) L 07/26/18 05:11 Potassium 4.3 mmol/L (3.6-5.0) 07/26/18 05:11 Chloride 95.7 mmol/L (98-107) L 07/26/18 05:11 Carbon Dioxide 19 mmol/L (22-30) L 07/26/18 05:11 Anion Gap 18 mmol/L 07/26/18 05:11 BUN 41 mg/dL (7-17) H 07/26/18 05:11 Creatinine 3.9 mg/dL (0.7-1.2) H 07/26/18 05:11 Estimated GFR 11 ml/min 07/26/18 05:11 BUN/Creatinine Ratio 11 % 07/26/18 05:11 Glucose 97 mg/dL (65-100) 07/26/18 05:11 Hemoglobin A1c 6.2 % (4-6) H 07/18/18 13:14 Osmolality 268 Mosm/kg 07/21/18 05:33 Calcium 8.5 mg/dL (8.4-10.2) 07/26/18 05:11 Total Bilirubin 0.90 mg/dL (0.1-1.2) 07/20/18 06:42 Direct Bilirubin 0.6 mg/dL (0-0.2) H 07/18/18 13:14 Indirect Bilirubin 0.5 mg/dL 07/18/18 13:14 AST 56 units/L (5-40) H 07/20/18 06:42 ALT 52 units/L (7-56) 07/20/18 06:42 Alkaline Phosphatase 83 units/L (35-129) 07/20/18 06:42 NT-Pro-B Natriuret Pep 65412 pg/mL (0-900) H 07/18/18 13:14 Total Protein 5.3 g/dL (6.3-8.2) L 07/20/18 06:42 Albumin 2.8 g/dL (3.9-5) L 07/20/18 06:42 Albumin/Globulin Ratio 1.1 % 07/20/18 06:42 TSH 26.270 mlU/mL (0.270-4.200) H 07/19/18 14:38 Free T4 0.67 ng/dL (0.76-1.46) L 07/19/18 14:38 Thyroxine (T4) 3.4 ug/dL (4.0-12.0) L 07/19/18 14:38 Urine Color [place] (Yellow) 07/18/18 14:30 Urine Turbidity Clear (Clear) 07/18/18 14:30 Urine pH 5.0 (5.0-7.0) 07/18/18 14:30 Ur Specific [place] 1.017 (1.003-1.030) 07/18/18 14:30 Urine Protein 30 mg/dl mg/dL (Negative) 07/18/18 14:30 Urine Glucose (UA) Neg mg/dL (Negative) 07/18/18 14:30 Urine Ketones Tr mg/dL (Negative) 07/18/18 14:30 Urine Blood Sm (Negative) 07/18/18 14:30 Urine Nitrite Neg (Negative) 07/18/18 14:30 Urine Bilirubin Neg (Negative) 07/18/18 14:30 Urine Urobilinogen 4.0 mg/dL (<2.0) 07/18/18 14:30 Ur Leukocyte Esterase Tr (Negative) 07/18/18 14:30 Urine WBC (Auto) 30.0 /HPF (0.0-6.0) H 07/18/18 14:30 Urine RBC (Auto) 3.0 /HPF (0.0-6.0) 07/18/18 14:30 U Epithel Cells (Auto) < 1.0 /HPF (0-13.0) 07/18/18 14:30 Urine Bacteria (Auto) 1+ /HPF (Negative) 07/18/18 14:30 Hyaline Casts 1 /LPF 07/18/18 14:30 Urine Mucus Few /HPF 07/18/18 14:30 Urine Osmolality 492 Mosm/kg 07/20/18 05:40 Urine Sodium 10 mmol/L 07/20/18 05:40 Urine Potassium 12.30 mmol/L 07/20/18 05:40 Urine Chloride 17.3 mmolL (110-250) L 07/20/18 05:40 Salicylates < 0.3 mg/dL (2.8-20.0) L 07/18/18 13:14 Urine Opiates Screen Presumptive negative 07/18/18 14:30 Urine Methadone Screen Presumptive negative 07/18/18 14:30 Acetaminophen 5.4 ug/mL (10.0-30.0) L 07/18/18 13:14 Ur Barbiturates Screen Presumptive negative 07/18/18 14:30 Ur Phencyclidine Scrn Presumptive negative 07/18/18 14:30 Ur Amphetamines Screen Presumptive negative 07/18/18 14:30 U Benzodiazepines Scrn Presumptive negative 07/18/18 14:30 Urine Cocaine Screen Presumptive negative 07/18/18 14:30 U Marijuana (THC) Screen Presumptive negative 07/18/18 14:30 Drugs of Abuse Note Disclamer 07/18/18 14:30 Plasma/Serum Alcohol < 0.01 % (0-0.07) 07/18/18 13:14 Nutrition/Malnutrition Assess - Dietary Evaluation Nutrition/Malnutrition Findings: Nutrition Notes Start: 07/25/18 14:35 Freq: Status: Active Protocol: Document 07/25/18 14:35 RM (Rec: 07/25/18 14:53 RM [email or web address]) Nutrition Notes Need for Assessment generated from: LOS Initial or Follow up Assessment Current Diagnosis Acute Kidney Injury Coronary Artery Disease Hypertension Heart Failure Hyperlipidemia Other Pertinent Diagnosis Depression, Physical debility, UTI Current Diet Cardiac Labs/Tests Reviewed Pertinent Medications Reviewed Height 5 ft 8 in Weight 87 kg Outlook Body Weight (kg) 63.63 BMI 29.1 Subjective/Other Information Screened for LOS. Pt and pt tech in room at time of visit. Pt confused but tech stated that pt only drank an ONS today and indicated an empty bottle of strawberry Fortify at bedside. Also stated that pt said she does not want to get better. Percent of energy/protein needs met: 13%/10% Burn Absent Trauma Absent #1 Nutrition Diagnosis Inadequate oral intake Etiology depression As Evidenced by Signs and Symptoms pt tech statement that pt only drank an ONS today Is patient on ventilator? No Is Patient Ambulatory and/or Out of Bed No REE-([facility]-confined to bed) 1039.030 Calculation Used for Recommendations Kcal/kg Additional Notes Protein Needs: 87-104g (1-1.2g /kg) Fluid Needs: 1 ml/kcal Nutrition Intervention Change Diet Order: Continue current Add Supplement/Snack (indicate name/kcal Ensure Enlive Harmony BID /protein ) Provides kCal: 700 Provides Protein (gm) 40 Goal #1 Meet at least 75% of calorie and protein needs via PO and ONS intakes Anticipated Discharge Needs: Cardiac Follow-Up By: 07/27/18 Additional Comments Follow for PO and ONS intakes
--- NOTE | 2018-07-26 15:18 | Progress Note ---
Assessment and Plan - Patient Problems (1) DL (acute kidney injury) Current Visit: Yes Status: Acute Plan to address problem: Renal worsening likely due to acute cardiorenal syndrome, ATN in the setting of hypotensive episodes cannot be ruled out, progressive renal failiure noted despite initiation of dobutamine. Discussed with pt's daughter (Ms Beckham) regarding progressive DL which may require possible renal replacement therapy, if pt does not respond to medical therapy, but as per daughter, pt never wanted to be on dialysis or other life sustaining measures if her overall prognosis becomes poor. patient is made DNR/DNI, pt and family leaning towards hospice care. will continue current supportive care from renal stand point (2) Hyponatremia Current Visit: Yes Status: Acute Plan to address problem: Na somewhat improved to 128 with tolvaptan. cont fluid restriction to 1.5L/day. cont synthroid. (3) Hypothyroidism Current Visit: Yes Status: Chronic Qualifiers: Qualified Code(s): E03.9 - Hypothyroidism, unspecified Plan to address problem: Cont synthroid. (4) Acute systolic (congestive) heart failure Current Visit: Yes Status: Acute Plan to address problem: cont fluid restriction to 1.5/day. lasix held given declining eGFR. pt with hypotensive episodes and worsening renal function, likely secondary to cardiore nal syndrome. inotropic support with dobutamine. (5) Acute and chronic respiratory failure with hypoxia Current Visit: Yes Status: Acute Plan to address problem: Overall respiratory status is stable on 2 L of O2 via nasal cannula. avoid IVF (6) Depression Current Visit: Yes Status: Chronic Qualifiers: Depression Type: unspecified Qualified Code(s): F32.9 - Major depressive disorder, single episode, unspecified Plan to address problem: Further recommendations per psychiatry. Subjective Date of service: 07/26/18 Principal diagnosis: HF Interval history: pt awake, alert, in no acute respiratory distress, worsening renal function noted, despite initiation of dobutamine. Pt and family do not wish aggressive medical care and are interested in hospice care. Objective - Vital Signs Vital signs: Vital Signs - 12hr 07/26/18 07/26/18 07/26/18 05:01 08:17 08:52 Temperature 98.4 F 97.6 F Pulse Rate 59 L 80 Respiratory 20 20 Rate Blood Pressure 94/67 Blood Pressure 95/53 [Left] O2 Sat by Pulse 98 100 Oximetry 02/07/19 11:37 Temperature 98.0 F Pulse Rate 102 H Respiratory 22 Rate Blood Pressure 100/68 Blood Pressure [Left] O2 Sat by Pulse 95 Oximetry - General Appearance General appearance: well-developed, appears stated age, chronically ill EENT: ATNC, PERRL, mucous membranes moist Neck: no JVD Respiratory: Present: Decreased Breath Sounds Cardiology: regular, S1S2 Gastrointestinal: normoactive bowel sounds Integumentary: no rash, other (no edema ) Neurologic: no focal deficit, alert and oriented x3, strength 5/5, CN 3-12 intact Psychiatric: mood/affect appropriate, cooperative - Lab 07/25/18 05:25 07/26/18 05:11 Most recent lab results Calcium 8.5 mg/dL (8.4-10.2) 07/26/18 05:11 Urine Sodium 10 mmol/L 07/20/18 05:40 Medications & Allergies - Medications Allergies/Adverse Reactions: Allergies cefaclor [From Ceclor] Allergy (Verified 07/18/18 13:05) Unknown ciprofloxacin [From Cipro] Allergy (Verified 07/18/18 13:05) Unknown diphenhydramine [From Benadryl] Allergy (Verified 07/18/18 13:05) Unknown iodine Allergy (Verified 07/18/18 13:05) Unknown levofloxacin [From Levaquin] Allergy (Verified 07/18/18 13:05) Unknown moxifloxacin [From Avelox] Allergy (Verified 07/18/18 13:05) Unknown nitrofurantoin [From Macrodantin] Allergy (Verified 07/18/18 13:05) Unknown Penicillins Allergy (Verified 07/18/18 13:05) Unknown sulfamethoxazole [From Septra] Allergy (Verified 07/18/18 13:05) Unknown tetracycline Allergy (Verified 07/18/18 13:05) Unknown trimethoprim [From Septra] Allergy (Verified 07/18/18 13:05) Unknown mycins Allergy (Uncoded 07/18/18 13:05) Unknown Home Medications: Home Medications Medication Instructions Recorded Confirmed Last Taken Type Benzonatate [Tessalon Perle] 100 mg PO PRN 07/18/18 07/18/18 Unknown History Diltiazem HCl [Diltiazem 24Hr ER] 240 mg PO QAM 07/18/18 07/18/18 Unknown History Levothyroxine [Synthroid] 125 mcg PO QAM 07/18/18 07/18/18 Unknown History Loperamide 2 mg PO DAILY 07/18/18 07/18/18 Unknown History Metoprolol SUCCINATE ER TAB 25 mg PO QPCHS 07/18/18 07/18/18 Unknown History PARoxetine [Paxil] 20 mg PO DAILY 07/18/18 07/18/18 Unknown History Rivaroxaban [Xarelto] 15 mg PO DAILY 07/18/18 07/18/18 Unknown History Active Medications: Generic Name Dose Route Start Last Admin Trade Name Freq PRN Reason Stop Dose Admin Acetaminophen 650 mg 07/19/18 00:20 Tylenol PO Q4H PRN Pain MILD(1-3)/Fever >100.5/BEASLEY Albuterol 2.5 mg 07/20/18 09:46 07/23/18 07:25 Proventil IH 2.5 mg Q4HRT PRN Administration Shortness Of Breath Famotidine 20 mg 07/19/18 10:00 07/26/18 12:16 Pepcid PO 20 mg QAM KIAN Administration Furosemide 40 mg 07/26/18 11:51 07/26/18 12:26 Lasix IV 40 mg 0600,1800 KIAN Administration Hydromorphone HCl 0.25 mg 07/19/18 00:20 Dilaudid IV Q3H PRN Pain, Moderate (4-6) Dobutamine HCl/Dextrose 500 mg in 250 mls @ 13.68 mls/hr 07/26/18 14:00 Dobutrex Drip 500mg/D5w 250ml IV TITR KIAN 5 MCG/KG/MIN Metoclopramide HCl 5 mg 07/19/18 00:20 Reglan IV Q6H PRN Nausea And Vomiting Metoprolol Tartrate 25 mg 07/25/18 22:00 07/26/18 12:16 Lopressor PO Not Given BID KIAN Miscellaneous Medication 62.5 mcg 07/23/18 06:00 07/26/18 05:20 Nf Synthroid PO 62.5 mcg Q24H KIAN Administration Ondansetron HCl 4 mg 07/19/18 00:20 Zofran IV Q8H PRN Nausea And Vomiting Paroxetine HCl 20 mg 07/21/18 10:00 07/26/18 12:16 Paxil PO 20 mg QDAY KIAN Administration Rivaroxaban 15 mg 07/20/18 10:00 07/26/18 12:14 Xarelto PO 15 mg DAILY KIAN Administration Protocol Sodium Bicarbonate 1,300 mg 07/24/18 11:00 07/26/18 12:15 Sodium Bicarbonate PO 1,300 mg BID KIAN Administration Sodium Chloride 10 ml 07/19/18 10:00 07/26/18 12:25 Sodium Chloride Flush Syringe 10 Ml IV 10 ml BID KIAN Administration Sodium Chloride 10 ml 07/19/18 00:20 Sodium Chloride Flush Syringe 10 Ml IV PRN PRN LINE FLUSH
[2018-07-26] MEDS: DOBUTREX DRIP 500MG/D5W 250ML 500 MG/250 ML BAG IV SCH (16:47)
[2018-07-27] MEDS: LASIX IV SCH (05:00)
[2018-07-27] MEDS: LEVOTHYROXINE 62.5 MCG PO SCH (05:00)
[2018-07-27 06:40] LABS: Calcium 8.5 mg/dL (8.4-10.2)
[2018-07-27] MEDS: SODIUM BICARBONATE PO SCH (10:19)
[2018-07-27] MEDS: XARELTO PO SCH (10:19)
[2018-07-27] MEDS: PEPCID PO SCH (10:19)
[2018-07-27] MEDS: PAXIL PO SCH (10:19)
[2018-07-27] MEDS: SODIUM CHLORIDE FLUSH SYRINGE 10 ML IV SCH (10:20)
[2018-07-27] MEDS: LOPRESSOR PO SCH (10:20)
--- NOTE | 2018-07-27 11:03 | Progress Note ---
Assessment and Plan - Patient Problems (1) DL (acute kidney injury) Current Visit: Yes Status: Acute Plan to address problem: Renal worsening likely due to acute cardiorenal syndrome, ATN in the setting of hypotensive episodes cannot be ruled out, now Cr stabilizing on dobutamine gtt. Discussed with pt's daughter (Ms Beckham) if progressive DL seen pt may require renal replacement therapy, but as per daughter, pt never wanted to be on dialysis or other life sustaining measures if her overall prognosis becomes poor. patient is made DNR/DNI, pt and family leaning towards palliative/hospice care. will continue current supportive care from renal stand point (2) Hyponatremia Current Visit: Yes Status: Acute Plan to address problem: Na improved to 132 on IV lasix/dobutamine gtt. also received tolvaptan 15mg 2days ago. cont fluid restriction to 1.5L/day. cont synthroid. (3) Hypothyroidism Current Visit: Yes Status: Chronic Qualifiers: Qualified Code(s): E03.9 - Hypothyroidism, unspecified Plan to address problem: Cont synthroid. (4) Acute systolic (congestive) heart failure Current Visit: Yes Status: Acute Plan to address problem: cont fluid restriction to 1.5/day. cont lasix 40mg IV bid, along with inotropic support with dobutamine. ARB on hold due to progressive renal failure (5) Acute and chronic respiratory failure with hypoxia Current Visit: Yes Status: Acute Plan to address problem: Overall respiratory status is stable on 2 L of O2 via nasal cannula. avoid IVF (6) Depression Current Visit: Yes Status: Chronic Qualifiers: Depression Type: unspecified Qualified Code(s): F32.9 - Major depressive disorder, single episode, unspecified Plan to address problem: Further recommendations per psychiatry. Subjective Date of service: 07/27/18 Principal diagnosis: HF Interval history: pt awake, alert, denies CP, SOB, palpitations, n/v/d. Objective - Vital Signs Vital signs: Vital Signs - 12hr 07/27/18 07/27/18 07/27/18 03:52 08:20 08:21 Temperature 98.0 F 98.0 F 98.0 F Pulse Rate 87 100 H Pulse Rate [ From Monitor] Respiratory 14 20 20 Rate Blood Pressure 112/56 108/58 O2 Sat by Pulse 94 93 Oximetry 07/27/18 07/27/18 10:00 10:20 Temperature Pulse Rate 100 H Pulse Rate [ 100 H From Monitor] Respiratory 20 Rate Blood Pressure 108/58 O2 Sat by Pulse 93 Oximetry - General Appearance General appearance: well-developed, well-nourished, appears stated age, obese EENT: ATNC, PERRL, mucous membranes moist Neck: no JVD Respiratory: Present: Decreased Breath Sounds Cardiology: regular, S1S2 Gastrointestinal: normoactive bowel sounds Integumentary: no rash, other (no pitting edema ) Neurologic: no focal deficit, alert and oriented x3, strength 5/5, CN 3-12 intact Psychiatric: mood/affect appropriate, cooperative - Lab 07/25/18 05:25 07/27/18 05:35 Most recent lab results Calcium 8.5 mg/dL (8.4-10.2) 07/27/18 05:35 Urine Sodium 10 mmol/L 07/20/18 05:40 Medications & Allergies - Medications Allergies/Adverse Reactions: Allergies cefaclor [From Ceclor] Allergy (Verified 07/18/18 13:05) Unknown ciprofloxacin [From Cipro] Allergy (Verified 07/18/18 13:05) Unknown diphenhydramine [From Benadryl] Allergy (Verified 07/18/18 13:05) Unknown iodine Allergy (Verified 07/18/18 13:05) Unknown levofloxacin [From Levaquin] Allergy (Verified 07/18/18 13:05) Unknown moxifloxacin [From Avelox] Allergy (Verified 07/18/18 13:05) Unknown nitrofurantoin [From Macrodantin] Allergy (Verified 07/18/18 13:05) Unknown Penicillins Allergy (Verified 07/18/18 13:05) Unknown sulfamethoxazole [From Septra] Allergy (Verified 07/18/18 13:05) Unknown tetracycline Allergy (Verified 07/18/18 13:05) Unknown trimethoprim [From Septra] Allergy (Verified 07/18/18 13:05) Unknown mycins Allergy (Uncoded 07/18/18 13:05) Unknown Home Medications: Home Medications Medication Instructions Recorded Confirmed Last Taken Type Benzonatate [Tessalon Perle] 100 mg PO PRN 07/18/18 07/18/18 Unknown History Diltiazem HCl [Diltiazem 24Hr ER] 240 mg PO QAM 07/18/18 07/18/18 Unknown History Levothyroxine [Synthroid] 125 mcg PO QAM 07/18/18 07/18/18 Unknown History Loperamide 2 mg PO DAILY 07/18/18 07/18/18 Unknown History Metoprolol SUCCINATE ER TAB 25 mg PO QPCHS 07/18/18 07/18/18 Unknown History PARoxetine [Paxil] 20 mg PO DAILY 07/18/18 07/18/18 Unknown History Rivaroxaban [Xarelto] 15 mg PO DAILY 07/18/18 07/18/18 Unknown History Active Medications: Generic Name Dose Route Start Last Admin Trade Name Freq PRN Reason Stop Dose Admin Acetaminophen 650 mg 07/19/18 00:20 Tylenol PO Q4H PRN Pain MILD(1-3)/Fever >100.5/BEASLEY Albuterol 2.5 mg 07/20/18 09:46 07/23/18 07:25 Proventil IH 2.5 mg Q4HRT PRN Administration Shortness Of Breath Famotidine 20 mg 07/19/18 10:00 07/27/18 10:19 Pepcid PO 20 mg QAM KIAN Administration Furosemide 40 mg 07/26/18 11:51 07/27/18 05:00 Lasix IV 40 mg 0600,1800 KIAN Administration Hydromorphone HCl 0.25 mg 07/19/18 00:20 Dilaudid IV Q3H PRN Pain, Moderate (4-6) Dobutamine HCl/Dextrose 500 mg in 250 mls @ 13.68 mls/hr 07/26/18 14:00 07/26/18 16:47 Dobutrex Drip 500mg/D5w 250ml IV 5 mcg/kg/min TITR KIAN 13.68 mls/hr Administration 5 MCG/KG/MIN Metoclopramide HCl 5 mg 07/19/18 00:20 Reglan IV Q6H PRN Nausea And Vomiting Metoprolol Tartrate 25 mg 07/25/18 22:00 07/27/18 10:20 Lopressor PO Not Given BID KIAN Miscellaneous Medication 62.5 mcg 07/23/18 06:00 07/27/18 05:00 Nf Synthroid PO 62.5 mcg Q24H KIAN Administration Ondansetron HCl 4 mg 07/19/18 00:20 Zofran IV Q8H PRN Nausea And Vomiting Paroxetine HCl 20 mg 07/21/18 10:00 07/27/18 10:19 Paxil PO 20 mg QDAY KIAN Administration Rivaroxaban 15 mg 07/20/18 10:00 07/27/18 10:19 Xarelto PO 15 mg DAILY KIAN Administration Protocol Sodium Bicarbonate 1,300 mg 07/24/18 11:00 07/27/18 10:19 Sodium Bicarbonate PO 1,300 mg BID KIAN Administration Sodium Chloride 10 ml 07/19/18 10:00 07/27/18 10:20 Sodium Chloride Flush Syringe 10 Ml IV 10 ml BID KIAN Administration Sodium Chloride 10 ml 07/19/18 00:20 Sodium Chloride Flush Syringe 10 Ml IV PRN PRN LINE FLUSH
[2018-07-27] MEDS: DOBUTREX DRIP 500MG/D5W 250ML 500 MG/250 ML BAG IV SCH (11:23)
--- NOTE | 2018-07-27 11:25 | Discharge Summary ---
Providers - Providers Date of Admission: 07/18/18 15:41 Attending physician: MIKE CUNNINGHAM MD 07/19/18 Consult to Case Management [CONS] Routine Services Needed at Discharge: Home Health Services Notified:: KEE 07/19/18 00:38 Consult to Mental Health [CONS] Routine Reason For Exam: depression Place consult to:: Domi Notified:: AMY 07/19/18 10:46 Consult to Physician [CONS] Routine Comment: Consulting Provider: MECCA WHITE Physician Instructions: Reason For Exam: hyponatremia 07/19/18 15:28 Physical Therapy Evaluation and Treat [CONS] Routine Comment: Reason For Exam: General Weakness/Debility 07/21/18 14:20 Consult to Physician [CONS] Routine Comment: called answ. serv./kush Consulting Provider: RODRIGUE ALVES Physician Instructions: Reason For Exam: afib, chf Primary care physician: EMILY JOSHI Hospitalization Condition: Stable Hospital course: Hospital course/plan 83-year-old woman who had not been doing well at home, she had been more depressed and had stopped taking all her medications. She was planned for admission so [facility]. Her labs had shown extremely low sodium, therefore she was admitted to the hospital for treatments Sodium was as low as 119 on admission, nephrology consult appreciated -received tolvaptan x 2 doses, sodium levels improved, but patient had worsening creatinine -TSH is extremely elevated and T4 is low. Has been restarted on Synthroid. 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 -She had mild improvement, but given her multiple comorbidities, her family decided to place her in inpatient hospice after which she was discharged to hospice Diagnosis Severe hyponatremia metabolic acidosis Hypothyroidism symptomatic UTI Acute kidney injury due to vasomotor nephropathy major Depression with acute flare afib with RVR, Hx of failed cardioversion in 2016 SP PPM Hypercoagulable state Hx of RLE dvt 20 years ago acute on chronic systolic CHF, EF 15% hx of Rx drug dependence ( opioids, ambien and benzos), was weaned off over 5 year period in suboxone clinic, now in remission Acute hypoxic respiratory failure due to CHF exacerbation DL- vasomotor nephropathy Cardiorenal syndrome Disposition: DC-[id number] HOSPICE ([facility]) Time spent for discharge: 33 mins Core Measure Documentation - Palliative Care Palliative Care/ Comfort Measures: Hospice Care - Core Measures Any of the following diagnoses?: heart failure - Heart Failure Discharge Requirements JENNY/ARB for LVSD if EF <40%: Not Applicable Reason for no JENNY/ARB: Renal impairment Beta albaro at discharge: Yes Exam - Physical Exam Narrative exam: General.: appears sad, appears ill HEENT: Moist mucous membranes, extraocular muscles intact, no lymphadenopathy Neck: supple Cardiac: S1-S2 heard Lungs: Bibasilar crackles Abdomen: soft , nontender, nondistended, bowel sounds positive Extremities: Generalized body edema Skin: no rash or lesions Neurologic: no gross focal deficits Psych: Appears depressed - Constitutional Vitals: Temp Pulse Resp BP Pulse Ox 98.0 F 100 H 20 108/58 93 07/27/18 08:21 07/27/18 10:20 07/27/18 10:00 07/27/18 10:20 07/27/18 10:00 Plan Follow up with: EMILY JOSHI MD [Primary Care Provider] - 7 Days Prescriptions: Furosemide [Lasix TAB] 40 mg PO QDAY #30 tablet RX: Morphine Concentrate [MORPHINE Conc 20 MG/ML ORAL LIQ] 10 mg PO Q4HR PRN #1 oralsyr PRN Reason: Pain, Moderate (4-6)
[2018-07-27 11:42] VITALS: BP 110/71
== END 2018-07-27 13:09 | disposition hospice, inpatient (51) | DRG 682 ==
LOC: ED 12:57 → 2B-ACE 15:41 → 4A 07-25 12:43
PROVIDERS: ADMIT Internal Medicine; ATTEND Internal Medicine
DX: N17.0 Acute kidney failure with tubular necrosis (principal); I50.23 Acute on chronic systolic (congestive) heart failure; J96.21 Acute and chronic respiratory failure with hypoxia; E87.1 Hypo-osmolality and hyponatremia; I42.9 Cardiomyopathy, unspecified; E87.2 Acidosis; D68.59 Other primary thrombophilia; I13.0 Hypertensive heart and chronic kidney disease with heart failure and stage 1 through stage 4 chronic kidney disease, or unspecified chronic kidney disease; N30.00 Acute cystitis without hematuria; F33.2 Major depressive disorder, recurrent severe without psychotic features; I25.10 Atherosclerotic heart disease of native coronary artery without angina pectoris; I48.91 Unspecified atrial fibrillation; E03.9 Hypothyroidism, unspecified; N18.9 Chronic kidney disease, unspecified; Z66 Do not resuscitate; F41.9 Anxiety disorder, unspecified; E86.9 Volume depletion, unspecified; K21.9 Gastro-esophageal reflux disease without esophagitis; F11.90 Opioid use, unspecified, uncomplicated; E78.2 Mixed hyperlipidemia; Z86.718 Personal history of other venous thrombosis and embolism; Z95.0 Presence of cardiac pacemaker; Z79.01 Long term (current) use of anticoagulants; Z85.038 Personal history of other malignant neoplasm of large intestine; Z90.49 Acquired absence of other specified parts of digestive tract; Z90.710 Acquired absence of both cervix and uterus; Z98.49 Cataract extraction status, unspecified eye; Z88.0 Allergy status to penicillin; Z88.1 Allergy status to other antibiotic agents; Z91.041 Radiographic dye allergy status; Z79.899 Other long term (current) drug therapy
CPT/HCPCS: 36415; 70450; 71045; 80048; 80053; 80076; 80307; 80320; 81001; 82436; 83036; 83880; 83930; 83935; 84133; 84300; 84436; 84439; 84443; 85007; 85025; 87086; 87116; 87324; 93005; 93010; 93306; 94640; 94760; 96360; 96361; G0378; G0480; J1250; J1940; J2260; J3246; J7030